=== PATIENT | female | born 1950 | race Caucasian/White ===

== ENCOUNTER 2022-04-04 06:35 | Day surgery (SDC) | payer MEDICARE, OTHER, SELFPAY ==
[2022-04-04] VITALS (9 sets, daily range): BP systolic 80–120; BP diastolic 41–56; PULSE 59–67; RESP 16–18; TEMP 36.4–36.9; O2SAT 93–98; BMI 22.5
[2022-04-04] MEDS: Lactated Ringers 1,000 ML 15 ML IV (07:26)
[2022-04-04] MEDS: Cefazolin 2 GM in 0.9% Normal Saline 100 ML IV (08:30)
--- NOTE | 2022-04-04 08:31 | DCINST_ITS ---
Discharge Instructions Diet Discharge Diet: No restrictions Activity Discharge Activity: Return to Normal Activity May resume sexual activity in: No Restrictions Dressing / Incision Call your doctor if you observe: Fever of 101 or Higher, Inability to urinate and Inability to have a bowel movement Follow Up Care Please Follow Up With: Leatha Darby MD When: next week, call for appt Test Results: Test results from this visit will be discussed in further detail at your follow- up appointment, if applicable. Discharge Plan Admission Attending Provider: Leatha Darby Primary Care Provider: Ric Lanza Discharge Orders/Prescriptions Prescriptions: New phenazopyridine [Pyridium] 200 mg tablet 200 mg PO TID PRN PRN (Reason: Bladder Spasms) 7 Days Qty: 30 0RF nitrofurantoin monohyd/m-cryst [Macrobid] 100 mg capsule 100 mg PO BID Qty: 6 0RF Rx Instructions: must administer with a meal/food Continued gabapentin 400 mg Capsule 400 mg PO QHS triamterene-hydrochlorothiazid 37.5-25 mg Tablet 1 tab PO BID niacin 500 mg Capsule, Extended Release 500 mg PO DAILY pravastatin 20 mg Tablet 20 mg PO QHS zolpidem [Ambien] 5 mg Tablet 5 mg PO QHS methimazole 10 mg Tablet 5 mg PO QHS ascorbic acid (vitamin C) [Vitamin C] 500 mg Tablet Extended Release 500 mg PO DAILY Urelle 81-10.8-40.8 mg Tablet 1 tab PO BID cholecalciferol (vitamin D3) [Vitamin D3] 25 mcg (1,000 unit) Tablet 25 mcg PO DAILY omega 6-mna-szm-fish oil [Fish Oil] 1,000 mg (120 mg-180 mg) Capsule 1 cap PO DAILY Referrals / Follow Up: Ric Lanza MD [Primary Care Provider] - Disposition Disposition (needs filled in before D/C Order can be placed): Home, Self Care
--- NOTE | 2022-04-04 08:35 | PCM.OPRPT ---
Report of Operation Date of Procedure: 04/04/22 Pre-Operative Diagnosis: Stress urinary incontinence Post-Operative Diagnosis: Same Surgery/Procedure Performed:: Bulkamid injection, cystoscopy Surgeon: Leatha Darby Type of Anesthesia: MAC Description of Procedure: The patient is a 71-year-old female with mild stress urinary incontinence who presents for injection of Bulkamid. Informed consent has been obtained. Patient was taken to the operating room placed on the operating room table. Anesthesia monitored the head, neck, airway, IV access and vital signs throughout the case. Once anesthesia was appropriate ministered, the patient was prepped and draped in usual sterile fashion. The lens with Bulkamid sheath was then inserted into the bladder with the markers at the 7 to 8 o'clock position. The needle was then inserted and positioning was obtained. The needle was then inserted into the tissue, care being taken not to go beyond the marker and the bevel facing medially. At this time 0.3 cc of the ball commode was injected. There was good ballooning of the tissue with good formation of a pillow. At this time the sheath was rotated to the 4 to 5 o'clock position and injection was repeated with 0.5 cc of the gel. Rotation once again occurred and injection was repeated at the 1 to 2 o'clock position and then again at the 10 to 11 o'clock position. There is good coaptation of the pillows. The cystoscope was then removed and the case was terminated. The patient was awakened and taken to the recovery room in good condition. There were no complications during this procedure. Grafts/Implants Used: Bulkamid Complications None Admit VTE Documentation VTE Present on Admission: Yes VTE Mechan Device Prophylaxis: SCD's VTE Pharm Prophylaxis ordered?: No Reason prophylaxis not ordered:: Treatment Not Indicated
== END 2022-04-04 10:37 | disposition home or self-care (01) ==
LOC: SDC 06:43 → AC 06:45
PROVIDERS: PCP Family Medicine; Referring Provider Urology; Visit Provider Urology
PROC: 3E0K8GC Introduction of Other Therapeutic Substance into Genitourinary Tract, Via Natural or Artificial Opening Endoscopic (ICD-10-PCS; CPT 52287; principal; 2022-04-04 08:10)
DX: N39.3 Stress incontinence (female) (male) (principal); N30.10 Interstitial cystitis (chronic) without hematuria; R35.1 Nocturia; N39.41 Urge incontinence; N90.5 Atrophy of vulva; N95.2 Postmenopausal atrophic vaginitis; E78.00 Pure hypercholesterolemia, unspecified; E07.9 Disorder of thyroid, unspecified
CPT/HCPCS: 51715; 00910; J7120; J2405

== ENCOUNTER 2025-09-01 06:01 | Day surgery (SDC) | payer MEDICARE, SELFPAY ==
--- NOTE | 2025-08-24 14:20 | PAT.ANESEVAL ---
Pre-Assessment Diagnosis/Proposed Procedure Planned Operative Procedure(s): Cysto, Mid-urethral sling Anesthesia History Anesthesia History - service delivery consultant: Anesthesia History - service delivery consultant Hx Hospitalization No 08/24/25 11:21 Any Problems With Anesthesia No 08/24/25 11:21 Cholinesterase deficiency No 08/24/25 11:21 You/Your Family Experience No 08/24/25 11:21 fever (hyperthermia) with Relationship Recent Exposure to Contagious No 04/04/22 07:12 Disease Does patient have nerve No 08/24/25 11:21 stimulator Patient instructed to have device shut off --Does patient have Pacemaker or ICD? When Was Last Pacemaker Check QUESTION #4 FULL TEXT: You/Your Family Experience fever (hyperthermia) with Anesthesia Last Oral Intake Last Oral intake: Last Oral Intake NPO since Meds taken in AM with sips of water? Meds patient instructed to take am of surgery PONV PONV - service delivery consultant: PONV - service delivery consultant Female Yes 08/24/25 11:21 HX of Motion Sickness No 08/24/25 11:21 HX of N/V After Surgery No 08/24/25 11:21 Non-Smoker Yes 08/24/25 11:21 Duration of Surgery greater Yes 08/24/25 11:21 than 60 minutes Number of Risk Factors 3 08/24/25 11:21 PONV Score Moderate Risk 08/24/25 11:21 Height & Weight Height & Weight: Anesthesia: Height & Weight Height 5 ft 8 in 06/08/25 08:44 Respiratory Assessment Respiratory Assessment - service delivery consultant: Respiratory Tract Infection Hx - service delivery consultant Hx Respiratory Tract Infection No 08/24/25 11:21 STOP Sleep Apnea STOP Sleep Apnea - service delivery consultant: STOP Sleep Apnea - service delivery consultant Hx Hypertension No 08/24/25 11:21 Hx Sleep Apnea No 08/24/25 11:21 CPAP BIPAP Do you snore loudly (louder No 08/24/25 11:21 than talking or can be heard Do you often feel tired/ No 08/24/25 11:21 fatigued/ sleepy during daytime? Has anyone observed you stop No 08/24/25 11:21 breathing during sleep? STOP Results Negative 08/24/25 11:21 QUESTION #5 FULL TEXT : Do you snore loudly (louder than talking or can be heard through closed doors)? 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 Specify any problems Hx of Preganancy in last 3 No 08/24/25 11:21 Months Nurse Filling Out Transfusion VCHRISTIN 08/24/25 11:21 & Questions: Date: 08/24/25 08/24/25 11:21 Time: 11:22 08/24/25 11:21 Patient unable to answer at this time (ie. confused, unrespo /Reproduction History /Reproductive History - service delivery consultant: /Reproductive Hx- service delivery consultant Hx Now No 08/24/25 11:21 Gestational Age (in weeks): EDC: Hx Hx Para Hx Section SAB No 08/24/25 11:21 Does the father of the baby or his family experience fever w Father of the baby Malignant Hypertension history comment [facility] Medical History (Updated 08/24/25 @ 14:14 by Radha Nowak) History of echocardiogram Post-menopausal Arthritis History of pain when walking Vulvar atrophy Vaginal atrophy Mixed incontinence Nocturia Interstitial cystitis Cancer Alcohol use Thyroid disease Bladder disease High cholesterol History of Mohs micrographic surgery for skin cancer Non-smoker History of edema Home Medications Medication Instructions Recorded Last Taken Type ascorbic acid (vitamin C) 500 mg 500 mg PO DAILY 04/02/22 Unknown History tablet,extended release (Vitamin C ER) cholecalciferol (vitamin D3) 25 25 mcg PO DAILY 04/02/22 Unknown History mcg (1,000 unit) tablet (Vitamin D3) methimazole 10 mg tablet 5 mg PO QHS 04/02/22 Unknown History omega 7-fom-snr-fish oil 1,000 mg 1 cap PO DAILY 04/02/22 Unknown History (120 mg-180 mg) capsule (Fish Oil) pravastatin 20 mg tablet 20 mg PO QHS 04/02/22 Unknown History triamterene 37.5 1 tab PO .QAM 04/02/22 Unknown History mg-hydrochlorothiazide 25 mg tablet zolpidem 5 mg tablet (Ambien) 10 mg PO QHS 04/02/22 Unknown History estradiol 0.01% (0.1 mg/gram) 1 g vaginal 3XW 06/08/25 Unknown History vaginal cream ospemifene 60 mg tablet (Osphena) 60 mg PO QDAY #30 tabs 06/08/25 Unknown Rx potassium chloride 10 mEq 10 meq PO QDAY 06/08/25 Unknown History tablet,extended release(part/cryst) Saccharomyces boulardii 250 mg 250 mg PO BID 08/22/25 Unknown History capsule (Daily Probiotic (S. boulardii)) biotin 10 mg tablet 10 mg PO QDAY 08/22/25 Unknown History magnesium 200 mg tablet 200 mg PO QDAY 08/22/25 Unknown History methenamine 81 mg-m.blue 10.8 1 tab PO BID #180 tabs 08/22/25 Unknown Rx mg-sod phos 40.8 mg-p.salicy-hyos tablet (Urelle) cream base no.193 (bulk) 1 applic topical DAILY 08/24/25 Unknown History (Versatile topical cream) ferrous sulfate 325 mg (65 mg 325 mg PO DAILY 08/24/25 Unknown History iron) tablet (FeroSul) lidocaine 4 % topical patch 1 patch topical DAILY PRN pain 08/24/25 Unknown History (AsperFlex (lidocaine)) melatonin 10 mg capsule 10 mg PO QHS 08/24/25 Unknown History triamterene 37.5 0.5 tab PO 1700 08/24/25 Unknown History mg-hydrochlorothiazide 25 mg tablet vitamin E 268 mg (400 unit) capsule 268 mg PO DAILY 08/24/25 Unknown History Allergy/AdvReac Type Severity Reaction Status Date / Time Penicillins Allergy Swelling Verified 08/24/25 11:04 Sulfa (Sulfonamide Allergy Upset Verified 08/24/25 11:04 Antibiotics) Stomach Surgical History (Updated 08/24/25 @ 11:21 by Radha Nowak) History of ankle surgery Hx of surgical procedure Hx of appendectomy Hx of hysterectomy Hx of breast biopsy Social History Smoking Status: Never smoker Audit: Pertinent Findings Pertinent Findings Echo (EF%) pertinent findings: 08/2024: EF 64%, mild MR and TR, with left atrial cavity mildly dilated. Recommendation Anesthesia Recommendation Anesthesia recommendation: OPTIMIZED for anesthesia
--- NOTE | 2025-08-29 08:35 | EKG12_ITS ---
Test Reason : PREOP Blood Pressure : */* mmHG Vent. Rate : 65 BPM Atrial Rate : 65 BPM P-R Int : 134 ms QRS Dur : 74 ms QT Int : 368 ms P-R-T Axes : 78 39 52 degrees QTcB Int : 382 ms Normal sinus rhythm Normal ECG Confirmed by Obey Casanova ([id number]), supervising editor news reel ROSANNE WEATHERS ([id number]) on 08/29/2025 10:29:18 AM Referred By: Leatha Darby Confirmed By: Obey Casanova
[2025-08-29 09:07] LABS: Hematocrit 40.0 % (37-47); Hemoglobin 14.2 g/dL (12.0-15.0); Mean Corp Hgb Conc 35.5 g/dL (32-36); Mean Corpuscular Volume 95.9 fL (81-99); Mean Platelet Vol. 10.7 fl (6.2-12.0); Platelet Count 203 K/mm3 (150-450); RBC Distribution Width CV 11.8 % (11.6-14.6); RBC Distribution Width SD 41.1 fl (35.1-43.9); Red Blood Count 4.17 M/mm3 (4.2-5.4); White Blood Count 6.6 K/mm3 (4.4-11.0)
[2025-08-29 09:26] LABS: Anion Gap 13 (5-15); BUN 22 mg/dL (4-19); BUN/Creat Ratio 21.3 RATIO (10-20); Calcium,Total 9.9 mg/dL (7.6-11.0); Carbon Dioxide 25.2 mmol/L (21.0-32.0); Chloride 101 mmol/L (98-108); Glucose 89 mg/dL (70-99); Potassium 3.5 mmol/L (3.3-5.1)
--- NOTE | 2025-08-29 12:53 | PAT.ANESEVAL ---
Pre-Assessment Diagnosis/Proposed Procedure Planned Operative Procedure(s): Cysto, Mid-urethral sling Anesthesia History Anesthesia History - public health representative: Anesthesia History - public health representative Hx Hospitalization No 08/24/25 11:21 Any Problems With Anesthesia No 08/24/25 11:21 Cholinesterase deficiency No 08/24/25 11:21 You/Your Family Experience No 08/24/25 11:21 fever (hyperthermia) with Relationship Recent Exposure to Contagious No 04/04/22 07:12 Disease Does patient have nerve No 08/24/25 11:21 stimulator Patient instructed to have device shut off --Does patient have Pacemaker or ICD? When Was Last Pacemaker Check QUESTION #4 FULL TEXT: You/Your Family Experience fever (hyperthermia) with Anesthesia Last Oral Intake Last Oral intake: Last Oral Intake NPO since Meds taken in AM with sips of water? Meds patient instructed to take am of surgery PONV PONV - public health representative: PONV - public health representative Female Yes 08/24/25 11:21 HX of Motion Sickness No 08/24/25 11:21 HX of N/V After Surgery No 08/24/25 11:21 Non-Smoker Yes 08/24/25 11:21 Duration of Surgery greater Yes 08/24/25 11:21 than 60 minutes Number of Risk Factors 3 08/24/25 11:21 PONV Score Moderate Risk 08/24/25 11:21 Height & Weight Height & Weight: Anesthesia: Height & Weight Height 5 ft 8 in 06/08/25 08:44 Respiratory Assessment Respiratory Assessment - public health representative: Respiratory Tract Infection Hx - public health representative Hx Respiratory Tract Infection No 08/24/25 11:21 STOP Sleep Apnea STOP Sleep Apnea - public health representative: STOP Sleep Apnea - public health representative Hx Hypertension No 08/24/25 11:21 Hx Sleep Apnea No 08/24/25 11:21 CPAP BIPAP Do you snore loudly (louder No 08/24/25 11:21 than talking or can be heard Do you often feel tired/ No 08/24/25 11:21 fatigued/ sleepy during daytime? Has anyone observed you stop No 08/24/25 11:21 breathing during sleep? STOP Results Negative 08/24/25 11:21 QUESTION #5 FULL TEXT : Do you snore loudly (louder than talking or can be heard through closed doors)? 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 Specify any problems Hx of Preganancy in last 3 No 08/24/25 11:21 Months Nurse Filling Out Transfusion VCHRISTIN 08/24/25 11:21 & Questions: Date: 08/24/25 08/24/25 11:21 Time: 11:22 08/24/25 11:21 Patient unable to answer at this time (ie. confused, unrespo /Reproduction History /Reproductive History - public health representative: /Reproductive Hx- public health representative Hx Now No 08/24/25 11:21 Gestational Age (in weeks): EDC: Hx Hx Para Hx Section SAB No 08/24/25 11:21 Does the father of the baby or his family experience fever w Father of the baby Malignant Hypertension history comment [facility] Medical History (Updated 08/24/25 @ 14:14 by Radha Nowak) History of echocardiogram Post-menopausal Arthritis History of pain when walking Vulvar atrophy Vaginal atrophy Mixed incontinence Nocturia Interstitial cystitis Cancer Alcohol use Thyroid disease Bladder disease High cholesterol History of Mohs micrographic surgery for skin cancer Non-smoker History of edema Home Medications Medication Instructions Recorded Last Taken Type ascorbic acid (vitamin C) 500 mg 500 mg PO DAILY 04/02/22 Unknown History tablet,extended release (Vitamin C ER) cholecalciferol (vitamin D3) 25 25 mcg PO DAILY 04/02/22 Unknown History mcg (1,000 unit) tablet (Vitamin D3) methimazole 10 mg tablet 5 mg PO QHS 04/02/22 Unknown History omega 7-hyw-hef-fish oil 1,000 mg 1 cap PO DAILY 04/02/22 Unknown History (120 mg-180 mg) capsule (Fish Oil) pravastatin 20 mg tablet 20 mg PO QHS 04/02/22 Unknown History triamterene 37.5 1 tab PO .QAM 04/02/22 Unknown History mg-hydrochlorothiazide 25 mg tablet zolpidem 5 mg tablet (Ambien) 10 mg PO QHS 04/02/22 Unknown History estradiol 0.01% (0.1 mg/gram) 1 g vaginal 3XW 06/08/25 Unknown History vaginal cream ospemifene 60 mg tablet (Osphena) 60 mg PO QDAY #30 tabs 06/08/25 Unknown Rx potassium chloride 10 mEq 10 meq PO QDAY 06/08/25 Unknown History tablet,extended release(part/cryst) Saccharomyces boulardii 250 mg 250 mg PO BID 08/22/25 Unknown History capsule (Daily Probiotic (S. boulardii)) biotin 10 mg tablet 10 mg PO QDAY 08/22/25 Unknown History magnesium 200 mg tablet 200 mg PO QDAY 08/22/25 Unknown History methenamine 81 mg-m.blue 10.8 1 tab PO BID #180 tabs 08/22/25 Unknown Rx mg-sod phos 40.8 mg-p.salicy-hyos tablet (Urelle) cream base no.193 (bulk) 1 applic topical DAILY 08/24/25 Unknown History (Versatile topical cream) ferrous sulfate 325 mg (65 mg 325 mg PO DAILY 08/24/25 Unknown History iron) tablet (FeroSul) lidocaine 4 % topical patch 1 patch topical DAILY PRN pain 08/24/25 Unknown History (AsperFlex (lidocaine)) melatonin 10 mg capsule 10 mg PO QHS 08/24/25 Unknown History triamterene 37.5 0.5 tab PO 1700 08/24/25 Unknown History mg-hydrochlorothiazide 25 mg tablet vitamin E 268 mg (400 unit) capsule 268 mg PO DAILY 08/24/25 Unknown History Allergy/AdvReac Type Severity Reaction Status Date / Time Penicillins Allergy Swelling Verified 08/24/25 11:04 Sulfa (Sulfonamide Allergy Upset Verified 08/24/25 11:04 Antibiotics) Stomach Surgical History (Updated 08/24/25 @ 11:21 by Radha Nowak) History of ankle surgery Hx of surgical procedure Hx of appendectomy Hx of hysterectomy Hx of breast biopsy Social History Smoking Status: Never smoker Audit: Pertinent Findings HISTORY of Pertinent Findings History of Pertinent Findings: Echo Pertinent Findings Echo (EF%) pertinent findings 08/2024: EF 64%, mild MR and 08/24/25 14:23 TR, with left atrial cavity mildly dilated. Pertinent Findings EKG Perinent findings: Normal sinus rhythm Normal ECG Confirmed by Obey Casanova ([id number]), online content editor ROSANNE WEATHERS ([id number]) on 08/29/2025 10:29:18 AM Echo (EF%) pertinent findings: 08/2024: EF 64%, mild MR and TR, with left atrial cavity mildly dilated. Recommendation Anesthesia Recommendation Anesthesia recommendation: OPTIMIZED for anesthesia
--- NOTE | 2025-08-29 15:24 | PAT.ANESEVAL ---
Pre-Assessment Diagnosis/Proposed Procedure Planned Operative Procedure(s): Cysto, Mid-urethral sling Anesthesia History Anesthesia History - forensic artist: Anesthesia History - forensic artist Hx Hospitalization No 08/24/25 11:21 Any Problems With Anesthesia No 08/24/25 11:21 Cholinesterase deficiency No 08/24/25 11:21 You/Your Family Experience No 08/24/25 11:21 fever (hyperthermia) with Relationship Recent Exposure to Contagious No 04/04/22 07:12 Disease Does patient have nerve No 08/24/25 11:21 stimulator Patient instructed to have device shut off --Does patient have Pacemaker or ICD? When Was Last Pacemaker Check QUESTION #4 FULL TEXT: You/Your Family Experience fever (hyperthermia) with Anesthesia Last Oral Intake Last Oral intake: Last Oral Intake NPO since Meds taken in AM with sips of water? Meds patient instructed to take am of surgery PONV PONV - forensic artist: PONV - forensic artist Female Yes 08/24/25 11:21 HX of Motion Sickness No 08/24/25 11:21 HX of N/V After Surgery No 08/24/25 11:21 Non-Smoker Yes 08/24/25 11:21 Duration of Surgery greater Yes 08/24/25 11:21 than 60 minutes Number of Risk Factors 3 08/24/25 11:21 PONV Score Moderate Risk 08/24/25 11:21 Height & Weight Height & Weight: Anesthesia: Height & Weight Height 5 ft 8 in 06/08/25 08:44 Respiratory Assessment Respiratory Assessment - forensic artist: Respiratory Tract Infection Hx - forensic artist Hx Respiratory Tract Infection No 08/24/25 11:21 STOP Sleep Apnea STOP Sleep Apnea - forensic artist: STOP Sleep Apnea - forensic artist Hx Hypertension No 08/24/25 11:21 Hx Sleep Apnea No 08/24/25 11:21 CPAP BIPAP Do you snore loudly (louder No 08/24/25 11:21 than talking or can be heard Do you often feel tired/ No 08/24/25 11:21 fatigued/ sleepy during daytime? Has anyone observed you stop No 08/24/25 11:21 breathing during sleep? STOP Results Negative 08/24/25 11:21 QUESTION #5 FULL TEXT : Do you snore loudly (louder than talking or can be heard through closed doors)? 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 Specify any problems Hx of Preganancy in last 3 No 08/24/25 11:21 Months Nurse Filling Out Transfusion VCHRISTIN 08/24/25 11:21 & Questions: Date: 08/24/25 08/24/25 11:21 Time: 11:22 08/24/25 11:21 Patient unable to answer at this time (ie. confused, unrespo /Reproduction History /Reproductive History - forensic artist: /Reproductive Hx- forensic artist Hx Now No 08/24/25 11:21 Gestational Age (in weeks): EDC: Hx Hx Para Hx Section SAB No 08/24/25 11:21 Does the father of the baby or his family experience fever w Father of the baby Malignant Hypertension history comment [facility] Medical History (Updated 08/24/25 @ 14:14 by Radha Nowak) History of echocardiogram Post-menopausal Arthritis History of pain when walking Vulvar atrophy Vaginal atrophy Mixed incontinence Nocturia Interstitial cystitis Cancer Alcohol use Thyroid disease Bladder disease High cholesterol History of Mohs micrographic surgery for skin cancer Non-smoker History of edema Home Medications Medication Instructions Recorded Last Taken Type ascorbic acid (vitamin C) 500 mg 500 mg PO DAILY 04/02/22 Unknown History tablet,extended release (Vitamin C ER) cholecalciferol (vitamin D3) 25 25 mcg PO DAILY 04/02/22 Unknown History mcg (1,000 unit) tablet (Vitamin D3) methimazole 10 mg tablet 5 mg PO QHS 04/02/22 Unknown History omega 1-tmq-zhw-fish oil 1,000 mg 1 cap PO DAILY 04/02/22 Unknown History (120 mg-180 mg) capsule (Fish Oil) pravastatin 20 mg tablet 20 mg PO QHS 04/02/22 Unknown History triamterene 37.5 1 tab PO .QAM 04/02/22 Unknown History mg-hydrochlorothiazide 25 mg tablet zolpidem 5 mg tablet (Ambien) 10 mg PO QHS 04/02/22 Unknown History estradiol 0.01% (0.1 mg/gram) 1 g vaginal 3XW 06/08/25 Unknown History vaginal cream ospemifene 60 mg tablet (Osphena) 60 mg PO QDAY #30 tabs 06/08/25 Unknown Rx potassium chloride 10 mEq 10 meq PO QDAY 06/08/25 Unknown History tablet,extended release(part/cryst) Saccharomyces boulardii 250 mg 250 mg PO BID 08/22/25 Unknown History capsule (Daily Probiotic (S. boulardii)) biotin 10 mg tablet 10 mg PO QDAY 08/22/25 Unknown History magnesium 200 mg tablet 200 mg PO QDAY 08/22/25 Unknown History methenamine 81 mg-m.blue 10.8 1 tab PO BID #180 tabs 08/22/25 Unknown Rx mg-sod phos 40.8 mg-p.salicy-hyos tablet (Urelle) cream base no.193 (bulk) 1 applic topical DAILY 08/24/25 Unknown History (Versatile topical cream) ferrous sulfate 325 mg (65 mg 325 mg PO DAILY 08/24/25 Unknown History iron) tablet (FeroSul) lidocaine 4 % topical patch 1 patch topical DAILY PRN pain 08/24/25 Unknown History (AsperFlex (lidocaine)) melatonin 10 mg capsule 10 mg PO QHS 08/24/25 Unknown History triamterene 37.5 0.5 tab PO 1700 08/24/25 Unknown History mg-hydrochlorothiazide 25 mg tablet vitamin E 268 mg (400 unit) capsule 268 mg PO DAILY 08/24/25 Unknown History Allergy/AdvReac Type Severity Reaction Status Date / Time Penicillins Allergy Swelling Verified 08/24/25 11:04 Sulfa (Sulfonamide Allergy Upset Verified 08/24/25 11:04 Antibiotics) Stomach Surgical History (Updated 08/24/25 @ 11:21 by Radha Nowak) History of ankle surgery Hx of surgical procedure Hx of appendectomy Hx of hysterectomy Hx of breast biopsy Social History Smoking Status: Never smoker Audit: Pertinent Findings HISTORY of Pertinent Findings History of Pertinent Findings: EKG Pertinent Findings EKG Perinent findings Normal sinus rhythm 08/29/25 12:54 Normal ECG Confirmed by Obey Casanova ([id number]), editor at large ROSANNE WEATHERS ([id number]) on 08/29/2025 10:29:18 AM Echo Pertinent Findings Echo (EF%) pertinent findings 08/2024: EF 64%, mild MR and 08/29/25 12:54 TR, with left atrial cavity mildly dilated. Echo (EF%) pertinent findings 08/2024: EF 64%, mild MR and 08/24/25 14:23 TR, with left atrial cavity mildly dilated. Recommendation Anesthesia Recommendation Anesthesia recommendation: OPTIMIZED for anesthesia (Looks like they sent the same echo - either way she is optimized for anesthesia )
[2025-09-01] VITALS (8 sets, daily range): BP systolic 134–140; BP diastolic 49–59; PULSE 64–72; RESP 16–18; TEMP 36.5–37.1; O2SAT 99–100; BMI 21.7
--- OUTSIDE RECORDS SUMMARY | 2025-09-01 06:05 | XMS RPT_ITS | CCD ---
Author Organization [facility] Care Team Providers Care Otolaryngology Rep Name Role Phone Rex GAONA, Ruiz Dhillon Unavailable Inna Pratt MD Unavailable Ric Fuentes MD. Primary Care Provider [phone] Mindy Gonzalez DO Unavailable Ric Fuentes MD Primary Care Provider Inna Pratt MD Unavailable [phone] Ric Fuentes MD. Primary Care Provider Mindy Gonzalez DO Unavailable [phone] Ric Fuentes MD Primary Care Provider DR RIC FUENTES MD Primary Care Physician LIBRA MCCARTHY DPM Attending Unavailable DR RIC FUENTES MD Primary Care LIBRA Gaytan DPM Attending Unavailable DR RIC FUENTES MD Primary Care Siriai alda Unavailable Primary Care Provider UnavailDr. Ric Easley MD Primary Care Provider Dr. Leatha Darby MD Attending Provider Dr. Ric Fuentes MD Referring Provider RIC FUENTES Referring Unavailable RIC FUENTES Primary Care Unavailable RIC FUENTES Referring Unavailable RIC FUENTES Primary Care Unavailable LUDWIN DEJESUS Referring Unavailable RIC FUENTES Primary Care Unavailable Ric Fuentes Primary Care Unavailable Ric Fuentes Referring Unavailable Leatha Darby Attending Unavailable Ric Fuentes Referring Unavailable Leatha Darby Attending Unavailable Ric Fuentes Primary Care Unavailable Ric Fuentes Primary Care Unavailable Leatha Darby Attending Unavailable Leatha Darby Referring Unavailable Roe Patel Consulting Unavailable Allergies Allergy Classification Reported Allergen(s) Allergy Type Date of Onset Reaction(s) Facility (1 source) Ciprofloxacin Drug Allergy 06-27-20 14 itching [facility] Work Phone: (1 source) Gentamicin Drug Allergy 06-27-20 14 itching [facility] Work Phone: (1 source) levoFLOXacin Drug Allergy 07-08-20 17 [facility] Work Phone: (1 source) Nitrofurantoin Drug Allergy 06-27-20 14 itching [facility] Work Phone: (1 source) Penicillin G Drug Allergy 05-18-20 12 [facility] Work Phone: (1 source) Tetracycline Drug Allergy 06-27-20 14 itching [facility] Work Phone: (1 source) WOOL; Translations: [WOOL] allergy to substance 08-16-20 19 [facility] Work Phone: (1 source) SULFACETAMIDE SODIUM-SULFUR drug allergy 05-18-20 12 [facility] Work Phone: (4 sources) Ciprofloxacin Drug Allergy 05-03-20 20 Nausea [facility] (5 sources) Penicillins; Translations: [PENICILLINS] Propensity to adverse reactions to drug 09-24-20 11 Swelling [facility] (11 sources) Sulfonamides (Antibiotic) Propensity to adverse reactions to drug 02-18-20 13 Itching [facility] Work Phone: (8 sources) Azithromycin; Translations: [AZITHROMYCIN] Drug Allergy 02-18-20 13 Itching [facility] (6 sources) Penicillins Propensity to adverse reactions to drug 09-24-20 11 Unknown [facility] (1 source) Doxycycline; Translations: [doxycycline] Drug Allergy [facility] (1 source) Penicillin; Translations: [penicillin] Drug Allergy itching, swelling [facility] (1 source) Sulfonamide; Translations: [sulfa drugs] Drug allergy itching, swelling [facility] (1 source) Penicillins Propensity to adverse reactions to drug 09-24-20 11 Unknown [facility] (1 source) Penicillins Allergy to substance 06-08-20 25 Swelling [facility] (2 sources) Sulfonamides (Antibiotic); Translations: [SULFA (SULFONAMIDE ANTIBIOTICS)] Allergy to substance 02-18-20 13 Upset Stomach [facility] (1 source) "CYCLINES Propensity to adverse reactions 06-08-20 25 Upset Stomach [facility] (1 source) Penicillins Drug allergy (disorder) 08-24-20 25 [facility] Repository (1 source) Sulfonamides (Antibiotic) Drug allergy (disorder) 08-24-20 25 [facility] Rep[facility] (1 source) CYCLINES; Translations: [CYCLINES] Propensity to adverse reactions (disorder) 08-22-20 25 [facility] Repository Medications Current Medications Medication Drug Class(es) Dates Sig (Normalized) Sig (Original) acetaminophen 325 mg / HYDROcodone bitartrate 5 mg oral tablet (7 sources) Opioid Agonist Start: 03-27-2014 take 1 tablet by mouth every six hours as needed HYDROcodone-aceta minophen 5-325 mg per tablet Take 1 tablet by mouth every 6 hours as needed. 20 tablet 0 03/27/2014 Active Comment on above: Take 1 tablet by leda every 6 hours as needed. ascorbic acid 500 mg extended release oral tablet (1 source) Vitamin C Start: 04-02-2022 take 1 tablet by mouth once daily Ascorbic Acid (Vitamin C) (Vitamin C) 500 mg Tablet Extended Release Active 500 mg PO DAILY April 02, 2022 12:00am biotin 5 mg oral capsule (2 sources) Start: 05-05-2024 biotin 5 mg oral capsule Dose : 5 mg = 1 cap(s), Oral, qDay, # 30 cap(s), 0 Refill(s) Start Date: 05/05/24 Status: Ordered Start: 08-16-2019 BIOTIN CAPS 1c apsule daily BIOTIN CAPS [id number] Kylie Corsaro [employer] calcium carbonate 1500 mg oral tablet (1 source) Start: 05-05-2024 calcium (as carbonate) 600 mg oral tablet Dose : 600 mg = 1 tab(s), Oral, qDay, 0 Refill(s) Start Date: 05/05/24 Status: Ordered cholecalciferol 0.025 mg oral tablet (1 source) Vitamin D Start: 04-02-2022 take 1 tablet by mouth once daily Cholecalciferol (Vitamin D3) (Vitamin D3) 25 mcg (1,000 unit) Tablet Active 25 ug PO DAILY April 02, 2022 12:00am clindamycin 10 mg/ml topical lotion (1 source) Lincosamide Antibacterial Start: 05-05-2024 clindamycin 1% topical lotion Apply 1 magaly, Topical, BID, # 60 mL, 0 Refill(s) Start Date: 05/05/24 Status: Ordered Estradiol (6 sources) Estrogen Start: 06-08-2025 Estradiol 0.01 % (0.1 mg/gram) cream Active 1 g VAGINAL 3 TIMES A WEEK June 08, 2025 12:00am Start: 05-05-2024 estradiol 0.1 mg/g vaginal cream Dose = 1 appl, Vaginal, Tues/Thurs/Sat, 0 Refill(s) Start Date: 05/05/24 Status: Ordered Start: 09-27-2021 estradiol (EST RACE) 0.1 MG/GM vaginal cream ezetimibe 10 mg oral tablet (7 sources) Dietary Cholesterol Absorption Inhibitor take 1 tablet by mouth once daily ezetimibe (ZETIA) 10 mg tablet Take 10 mg by mouth once daily. Active Comment on above: Take 10 mg by mouth once daily. gabapentin 400 mg oral capsule (13 sources) Anti-epileptic Agent Start: 10-02-2021 End: 06-08-2025 gabapentin 400 mg oral capsule Dose : 400 mg = 1 cap(s), Oral, qDay, 0 Refill(s) Start Date: 05/05/24 Status: Ordered Gabapentin 300 m g Tab Take by mouth once daily. Active Comment on above: Take by mouth once d aily. hydroCHLOROthiazide 25 mg / quinapril 20 mg oral tablet (7 sources) Thiazide Diuretic, Angiotensin Converting Enzyme Inhibitor take 1 tablet by mouth once daily Quinapril-Leslie chlorothiazide (ACCURETIC) 20-25 mg per tablet Take 1 tablet by mouth once daily. Active Comment on above: Take 1 tablet by [facility] once daily. hydroCHLOROthiazide 25 mg / triamterene 37.5 mg oral capsule (6 sources) Potassium-sparing Diuretic, Thiazide Diuretic Start: 05-05-20 take 1 capsule by mouth twice daily hydrochlorothia zide-triamteren e 25 mg-37.5 mg oral capsule Dose = 1 cap(s), Oral, BID, 0 Refill(s) Start Date: 05/05/24 Status: Ordered Start: 04-02-2022 Triamterene-Hy drochlorothiazid 37.5-25 mg Tablet Active 1 {tbl} PO TWICE A DAY April 02, 2022 12:00am Start: 04-17-2020 triamterene-hy drochlorothiazide (DYAZIDE) 37.5-25 MG per capsule hyoscyamine sulfate 0.12 mg / methenamine 81 mg / methylene blue 10.8 mg / phenyl salicylate 32.4 mg / sodium phosphate, monobasic 40.8 mg oral tablet (7 sources) Oxidation-Reduction Agent Start: 04-02-2022 take 1 tablet by mouth twice daily urelle oral tablet Dose = 1 tab(s), Oral, BID, # 90 EA, 0 Refill(s) Start Date: 05/05/24 Status: Ordered Start: 03-08-2020 Meth-Hyo-M Bl- Na Phos-Ph Yung (URELLE) 81 MG TABS Start: 08-16-2019 URELLE 81 MG T ABS 1 tablet daily METH-HYO-M BL-NA PHOS-PH YUNG [id number] Kylie Muniz LPN levothyroxine sodium 0.1 mg oral tablet (7 sources) l-Thyroxine levothyroxine (SYNTHROID) 100 mcg tablet Take by mouth daily before breakfast. Active Comment on above: Take by mouth daily before breakfast. magnesium oxide 250 mg oral tablet (1 source) Start: 05-05-20 Magnesium 250 mg tablet Dose : 500 mg = 2 tab(s), Oral, qDay, 0 Refill(s) Start Date: 05/05/24 Status: Ordered metaxalone 800 mg oral tablet (7 sources) Start: 12-12-19 take 1 tablet by mouth every eight hours as needed metaxalone 800 mg tablet Take 1 tablet by mouth three times daily as needed for Pain (or muscle spasms). 14 tablet 0 12/12/2013 Active Comment on above: Take 1 tablet by leda three times daily as needed for Pain (or muscle spasms). methIMAzole 10 mg oral tablet (7 sources) Thyroid Hormone Synthesis Inhibitor Start: 05-05-20 methIMAzole 10 mg oral tablet Dose : 10 mg = 1 tab(s), Oral, qDay, 0 Refill(s) Start Date: 05/05/24 Status: Ordered Start: 04-02-2022 take 5 mg by mouth at bedtime Methimazole 10 mg Tablet Active 5 mg PO AT BEDTIME April 02, 2022 12:00am Start: 08-16-2019 METHIMAZOLE 10 MG TABS 1 tablet twice daily METHIMAZOLE [id number] Kylie Muniz LPN METHIMAZOLE ORAL Take by mouth. 0 Active omega-3 acid ethyl esters (alf) 1000 mg oral capsule (1 source) Start: 04-02-2022 [place] 7-Uoy-Fhe-Fish Oil (Fish Oil) 1,000 mg (120 mg-180 mg) Capsule Active 1 NMA PO DAILY April 02, 2022 12:00am ondansetron 4 mg oral tablet (7 sources) Serotonin-3 Receptor Antagonist Start: 03-27-2014 take 1 tablet by mouth every four hours as needed ondansetron 4 mg tablet Take 1 tablet by mouth every 4 hours as needed for Nausea/Vomiting. 8 tablet 0 03/27/2014 Active Comment on above: Take 1 tablet by [facility] every 4 hours as needed for Nausea/Vomiting. ospemifene 60 mg oral tablet (1 source) Start: 06-08-2025 take 1 tablet by mouth once daily at mealtime Ospemifene (Osphena) 60 mg tablet Active 60 mg PO daily 16 01June 08, 2025 12:00am must administer with food, preferably a high-fat meal Osteo Bi-Flex Advanced oral tablet (1 source) Start: 05-05-2024 take 1 tablet by mouth once daily at mealtime Osteo Bi-Flex Advanced oral tablet Dose = 1 tab(s), Oral, Daily, 0 Refill(s), Take with food Start Date: 05/05/24 Status: Ordered microencapsulated potassium chloride 10 meq extended release oral tablet (2 sources) Start: 06-08-2025 take 1 tablet by mouth once daily Potassium Chloride 10 mEq tablet,ER particles/crystals Active 10 meq PO daily June 08, 2025 12:00am Start: 05-05-2024 Pokonza 10 mEq oral powder for reconstitution 1 packet(s), Oral, qDay, dilute the contents in at least 4 oz. of cold water, # 60 packet(s), 0 Refill(s) Start Date: 05/05/24 Status: Ordered pravastatin sodium 20 mg oral tablet (14 sources) HMG-CoA Reductase Inhibitor Start: 03-21-2020 pravastatin 20 mg or al tablet Dose : 20 mg = 1 tab(s), Oral, qHS, 0 Refill(s) Start Date: 05/05/24 Status: Ordered Start: 08-16-2019 PRAVASTATIN SO DIUM 20 MG TABS 1 3 times daily PRAVASTATIN SODIUM [id number] Kylie Muniz LPN take 1 tablet by leda th once daily pravastatin 10 mg tablet Take 10 mg by mouth once daily. Active Comment on above: Take 10 mg by mouth once daily. thioctic acid 600 mg oral capsule (7 sources) Alpha Lipoic Aci d 600 mg cap Take by mouth once daily. Active Comment on above: Take by mouth once d aily. tretinoin 1 mg/ml topical cream (4 sources) Retinoid Start: 04-28-2020 tretinoin (RETIN-A) 0.1 % cream valACYclovir 1000 mg oral tablet (11 sources) Herpesvirus Nucleoside Analog DNA Polymerase Inhibitor, Herpes Simplex Virus Nucleoside Analog DNA Polymerase Inhibitor, Herpes Zoster Virus Nucleoside Analog DNA Polymerase Inhibitor Start: 02-07-2020 valACYclovir (VALTREX) 1 GM tablet take 2 tablets by mo uth three times daily valACYclovir (VALTREX) 500 mg tablet Jeison e 1,000 mg by mouth three times daily. Active Comment on above: Take 1,000 mg by leda th three times daily. Vitamin C 500 mg oral tablet (1 source) Start: 05-05-2024 Vitamin C 500 mg oral tablet Dose : 500 mg = 1 tab(s), Oral, qDay, # 30 tab(s), 0 Refill(s) Start Date: 05/05/24 Status: Ordered Vitamin D3 (1 source) Start: 05-05-2024 Vitamin D3 Dose : 25 mcg = 1 tab(s), Oral, Daily, 0 Refill(s) Start Date: 05/05/24 Status: Ordered zinc gluconate 15 mg oral tablet (1 source) Start: 05-05-2024 zinc (as gluconate) 15 mg oral tablet Dose : 15 mg = 1 tab(s), Oral, Daily, 0 Refill(s) Start Date: 05/05/24 Status: Ordered zolpidem tartrate 10 mg oral tablet (7 sources) gamma-Aminobutyric Acid-ergic Agonist Start: 05-05-2024 zolpidem 10 mg oral tablet Dose : 10 mg = 1 tab(s), Oral, qHS, 0 Refill(s) Start Date: 05/05/24 Status: Ordered Start: 04-02-2022 take 1 tablet by leda th at bedtime Zolpidem (Ambien) 5 mg Tablet Active 5 mg PO AT BEDTIME April 02, 2022 12:00am Start: 04-25-2020 take 1 tablet by leda th once daily zolpidem (AMBIEN) 10 MG tablet TAKE 1 TABLET BY MOUTH EVERY DAY AT NIGHT 0 04/25/2020 Active Start: 02-09-2019 AMBIEN TABS 1 tablet bedtime ZOLPIDEM TARTRATE TABS [id number] Kylie Corsaro [employer] Completed/Discontinued Medications Medication Drug Class(es) Dates Sig (Normalized) Sig (Original) GLUCOSAMINE-CHONDROI TIN TABS (1 source) Start: 08-16-2019 OSTEO BI-FLEX REGULAR STRENGTH TABS 1 tablet daily GLUCOSAMINE-CHONDROI TIN TABS [id number] Kylie Corsaro [employer] fexofenadine hydrochloride 180 mg oral tablet (1 source) Histamine-1 Receptor Antagonist Start: 08-16-2019 FEXOFENADINE HCL 180 MG TABS 1 tablet daily FEXOFENADINE HCL [id number] Kylie Corsaro [employer] Fish Oils (1 source) Start: 08-16-2019 FISH OIL CAPS 1capsule daily OMEGA-3 FATTY ACIDS CAPS [id number] Kylie Corsaro [employer] niacin 500 mg extended release oral capsule (1 source) Nicotinic Acid Start: 04-02-2022 End: 06-08-2025 take 1 capsule by mouth once daily Niacin 500 mg Capsule, Extended Release Discontinued 500 mg PO DAILY April 02, 2022 12:00am June 08, 2025 8:42am nitrofurantoin, macrocrystals 25 mg / nitrofurantoin, monohydrate 75 mg oral capsule (8 sources) Nitrofuran Antibacterial Start: 03-27-2014 End: 06-08-2025 take 1 capsule by mouth twice daily at mealtime Nitrofurantoin Monohyd/M-Cryst (Macrobid) 100 mg capsule Discontinued 100 mg PO TWICE A DAY 6 0 April 04, 2022 12:00am June 08, 2025 8:42am must administer with a meal/food Comment on above: Take 1 capsule by mo uth twice daily. phenazopyridine hydrochloride 200 mg oral tablet (1 source) Start: 04-04-2022 End: 06-08-2025 take 1 tablet by mouth three times daily as needed for muscle spasms Phenazopyridine (Pyridium) 200 mg tablet Discontinued 200 mg PO 3 TIMES DAILY NEEDED as needed for Bladder Spasms 30 7 0 April 04, 2022 12:00am June 08, 2025 8:42am spironolactone 50 mg oral tablet (1 source) Aldosterone Antagonist Start: 08-16-2019 SPIRONOLACTONE 50 MG TABS 1 tablet twice daily SPIRONOLACTONE [id number] Kylie Muniz LPN VITAMIN E TABS (1 source) Start: 08-16-2019 VITAMIN E TABS 1 tablet daily VITAMIN E TABS [id number] Kylie Muniz LPN Problems Active Problems Problem Classification Problem Date Documented Date Episodic/Chronic Esophageal disorders (11 sources) Gastroesophageal reflux disease; Translations: [Gastro-esophageal reflux disease without esophagitis] Onset: 02-17-2013 05-03-2020 Chronic Genitourinary symptoms and ill-defined conditions (4 sources) Incontinence; Translations: [Mixed incontinence] Onset: 06-29-2025 06-08-2025 Chronic Genitourinary symptoms and ill-defined conditions (3 sources) Nocturia; Translations: [Nocturia] Onset: 06-29-2025 06-08-2025 Episodic Menopausal disorders (4 sources) Atrophy of vagina; Translations: [Postmenopausal atrophic vaginitis] Onset: 07-25-2025 06-08-2025 Chronic Other female genital disorders (2 sources) Atrophic vulva; Translations: [Atrophy of vulva] 06-08-2025 Episodic Other female genital disorders (1 source) Atrophy of vulva; Translations: [Atrophy of vulva] Onset: 08-22-2025 Episodic Other screening for suspected conditions (not mental disorders or infectious disease) (2 sources) Encounter for screening for osteoporosis; Translations: [Encounter for screening mammogram for malignant neoplasm of breast] Onset: 05-27-2025 Episodic Thyroid disorders (1 source) Other thyrotoxicosis without thyrotoxic crisis or storm; Translations: [Other thyrotoxicosis without thyrotoxic crisis or storm] Onset: 07-25-2025 Chronic Urinary tract infections (3 sources) Interstitial cystitis (chronic) without hematuria; Translations: [Interstitial cystitis] Onset: 06-29-2025 06-08-2025 Chronic Urinary tract infections (2 sources) Urinary tract infectious disease; Translations: [Urinary tract infection, site not specified] Onset: 06-29-2025 06-08-2025 Episodic Past or Other Problems Problem Classification Problem Date Documented Date Episodic/Chronic Diseases of mouth; excluding dental (20 sources) Burning mouth syndrome ; Translations: [Glossodynia] Onset: 02-17-2013 05-03-2020 Episodic Disorders of teeth and jaw (11 sources) Temporomandibular joint disorder; Translations: [Unspecified temporomandibular joint disorder, unspecified side] Onset: 06-30-2013 05-03-2020 Episodic Nonspecific chest pain (1 source) Chest pain, unspecified; Translations: [Chest pain, unspecified] Onset: 08-25-2024 Episodic Other connective tissue disease (1 source) Tendinitis of wrist; Translations: [Other enthesopathies, not elsewhere classified] Onset: 08-16-2019 08-16-2019 Episodic Other connective tissue disease (1 source) Other shoulder lesions, right shoulder; Translations: [Other shoulder lesions, right shoulder] Onset: 08-04-2017 08-04-2017 Episodic Other connective tissue disease (1 source) Complete rotator cuff tear or rupture of right shoulder, not specified as traumatic; Translations: [Complete rotator cuff tear or rupture of right shoulder, not specified as traumatic] Onset: 07-08-2017 07-08-2017 Episodic Other connective tissue disease (1 source) Impingement syndrome of shoulder region; Translations: [Impingement syndrome of right shoulder] Onset: 07-08-2017 07-08-2017 Episodic Other skin disorders (1 source) Intrinsic aging of skin; Translations: [Other skin changes] Onset: 02-09-2019 02-09-2019 Episodic Other upper respiratory infections (11 sources) Laryngitis; Translations: [Acute laryngitis] Onset: 02-17-2013 05-03-2020 Episodic Unclassified (1 source) Problem Results Test Name Value Interpretation Reference Range Facility 12 Lead EKGon 08-29-2025 12 Lead EKG [facility] [address] [place] [address] 12 Lead EKG 08/29/25 0839 MR#: [id number] Acct: [id number] Name: DAHLIA PARSONS Rep #: [id number] : 1950 75 From: Obey Casanova MD Attending Dr: Dr. Leatha Darby MD Status: PRE SDC Ordering Dr: Leatha Darby MD Date: 08/29/25 Location: [facility] [place] Sex: F C Admitted: Test Reason : PREOP Blood Pressure : */* mmHG Vent. Rate : 65 BPM Atrial Rate : 65 BPM P-R Int : 134 ms QRS Dur : 74 ms QT Int : 368 ms P-R-T Axes : 78 39 52 degrees QTcB Int : 382 ms Normal sinus rhythm Normal ECG Confirmed by Obey Casanova ([id number]), proposal editor ROSANNE WEATHERS ([id number]) on 08/29/2025 10:29:18 AM Referred By: Leatha Darby Confirmed By: Obey Casanova 08/29/25 1029 Date Obey Casanova MD CC: Dr. Leatha Darby MD; Dr. Ric Fuentes MD Signed Normal [facility] Basic Metabolic Profile (BMP )on 08-29-2025 BUN/CRE 21.3 RATIO High 08-08 [facility] Comment on above: Performed By: #### L 500.2500, L100.0500 #### [facility] [address] [place], [address] Calcium [Mass/Vol] 9.9 mg/dL Normal 7.6-11.0 [facility] Comment on above: Performed By: #### L 500.2500, L100.0500 #### [facility] [address] [place], [address] Chloride [Moles/Vol] 101 mmol/L Normal 98-108 [facility] Comment on above: Performed By: #### L 500.2500, L100.0500 #### [facility] [address] [place], [address] CO2 [Moles/Vol] 25.2 mmol/L Normal 21.0-32.0 [facility] Comment on above: Performed By: #### L 500.2500, L100.0500 #### [facility] [address] [place], [address] Creatinine [Mass/Vol] 1.01 mg/dL Normal 0.70-1.20 [facility] Comment on above: Performed By: #### L 500.2500, L100.0500 #### [facility] [address] [place], [address] GAP 13 Normal 5-15 [facility] Comment on above: Performed By: #### L 500.2500, L100.0500 #### [facility] [address] [place], [address] GFR/1.73 sq M.predicted among non-blacks MDRD (S/P/Bld) [Vol rate/Area] 57 mL/min/{1.73_m2} Low >60 [facility] Comment on above: Result Comment: mL/m in/1.73m2 CKD-EPI Creatinine Equation (2020) Performed By: #### L 500.2500, L100.0500 #### [facility] [address] [place], [address] Glucose [Mass/Vol] 89 mg/dL Normal 70-99 [facility] Comment on above: Performed By: #### L 500.2500, L100.0500 #### [facility] [address] [place], [address] Potassium [Moles/Vol] 3.5 mmol/L Normal 3.3-5.1 [facility] Comment on above: Performed By: #### L 500.2500, L100.0500 #### [facility] [address] [place], [address] Sodium [Moles/Vol] 140 mmol/L Normal 133-145 [facility] Comment on above: Performed By: #### L 500.2500, L100.0500 #### [facility] [address] [place], [address] Urea nitrogen [Mass/Vol] 22 mg/dL High 4-19 [facility] Comment on above: Performed By: #### L 500.2500, L100.0500 #### [facility] [address] [place], [address] CBC-Complete Blood Cnt No Di ffon 08-29-2025 Erythrocyte distribution width (RBC) [Ratio] 11.8 % Normal 11.6-14.6 [facility] Comment on above: Performed By: #### L 500.2500, L100.0500 #### [facility] [address] [place], [address] Hematocrit (Bld) [Volume fraction] 40.0 % Normal 37-47 [facility] Comment on above: Performed By: #### L 500.2500, L100.0500 #### [facility] [address] [place], [address] Hemoglobin (Bld) [Mass/Vol] 14.2 g/dL Normal 12.0-15.0 [facility] Comment on above: Performed By: #### L 500.2500, L100.0500 #### [facility] [address] [place], [address] MCH (RBC) [Entitic mass] 34.1 pg High 27.0-32.0 [facility] Comment on above: Performed By: #### L 500.2500, L100.0500 #### [facility] [address] [place], [address] MCHC (RBC) [Mass/Vol] 35.5 g/dL Normal 32-36 [facility] Comment on above: Performed By: #### L 500.2500, L100.0500 #### [facility] [address] [place], [address] MCV (RBC) [Entitic vol] 95.9 fL Normal 81-99 [facility] Comment on above: Performed By: #### L 500.2500, L100.0500 #### [facility] [address] [place], [address] Platelet mean volume (Bld) [Entitic vol] 10.7 fL Normal 6.2-12.0 [facility] Comment on above: Performed By: #### L 500.2500, L100.0500 #### [facility] [address] [place], [address] Platelets (Bld) [#/Vol] 203 10*3/uL Normal 150-450 [facility] Comment on above: Performed By: #### L 500.2500, L100.0500 #### [facility] [address] [place], [address] RBC (Bld) [#/Vol] 4.17 10*6/uL Low 4.2-5.4 [facility] Comment on above: Performed By: #### L 500.2500, L100.0500 #### [facility] [address] [place], [address] RDW SD 41.1 fl Normal 35.1-43.9 [facility] Comment on above: Performed By: #### L 500.2500, L100.0500 #### [facility] [address] [place], [address] WBC (Bld) [#/Vol] 6.6 10*3/uL Normal 4.4-11.0 [facility] Comment on above: Performed By: #### L 500.2500, L100.0500 #### [facility] [address] [place], [address] MR/PATJordana 08-29-2025 MR/PAT.[facility] Medical Records Department [address] [place] [address] PAT - Anesthesia 08/29/25 1524 MR#: [id number] Acct: [id number] Name: DAHLIA PARSONS Rep #: [id number] : 1950 75 From: Roe Patel MD PCP: Dr. Ric Fuentes MD Status:PRE [facility] Y Race: C Location: [facility] Pre-Assessment Diagnosis/Proposed Procedure Planned Operative Procedure(s): Cysto, Mid-urethral sling Anesthesia History Anesthesia History - rn procedures: Anesthesia History - rn procedures Hx Hospitalization No 08/24/25 11:21 Any Problems With Anesthesia No 08/24/25 11:21 Cholinesterase deficiency No 08/24/25 11:21 You/Your Family Experience No 08/24/25 11:21 fever (hyperthermia) with Relationship Recent Exposure to Contagious No 04/04/22 07:12 Disease Does patient have nerve No 08/24/25 11:21 stimulator Patient instructed to have device shut off --Does patient have Pacemaker or ICD? When Was Last Pacemaker Check QUESTION #4 FULL TEXT: You/Your Family Experience fever (hyperthermia) with Anesthesia Last Oral Intake Last Oral intake: Last Oral Intake NPO since Meds taken in AM with sips of water? Meds patient instructed to take am of surgery PONV PONV - rn procedures: PONV - rn procedures Female Yes 08/24/25 11:21 HX of Motion Sickness No 08/24/25 11:21 HX of N/V After Surgery No 08/24/25 11:21 Non-Smoker Yes 08/24/25 11:21 Duration of Surgery greater Yes 08/24/25 11:21 than 60 minutes Number of Risk Factors 3 08/24/25 11:21 PONV Score Moderate Risk 08/24/25 11:21 Height Weight Height Weight: Anesthesia: Height Weight Height 5 ft 8 in 06/08/25 08:44 Respiratory Assessment Respiratory Assessment - rn procedures: Respiratory Tract Infection Hx - rn procedures Hx Respiratory Tract Infection No 08/24/25 11:21 STOP Sleep Apnea STOP Sleep Apnea - rn procedures: STOP Sleep Apnea - rn procedures Hx Hypertension No 08/24/25 11:21 Hx Sleep Apnea No 08/24/25 11:21 CPAP BIPAP Do you snore loudly (louder No 08/24/25 11:21 than talking or can be heard Do you often feel tired/ No 08/24/25 11:21 fatigued/ sleepy during daytime? Has anyone observed you stop No 08/24/25 11:21 breathing during sleep? STOP Results Negative 08/24/25 11:21 QUESTION #5 FULL TEXT : Do you snore loudly (louder than talking or can be heard through closed doors)? Tobacco Use History Tobacco Use History - rn procedures: Tobacco Use History - rn procedures Tobacco Use Smoking Status Never smoker 08/24/25 11:21 Hx Tobacco Use No 08/24/25 11:21 Years Smoking Packs Smoked per Day Smoking Cessation Date was within the last 15 years Hx Smoking Cessation Date Hx Smoking Cessation Counseling Hematologic Medial History Hematologic Hx - rn procedures: Hematologic Medical Hx - preparator Hx of Blood Transfusion No 08/24/25 11:21 Hx of Transfusion in last 3 No 08/24/25 11:21 Months Date of Last Transfusion (if within last 3 months) Ever experience any problems No 08/24/25 11:21 with transfusion(s)? Specify any problems Hx of Preganancy in last 3 No 08/24/25 11:21 Months Nurse Filling Out Transfusion VCHRISTIN 08/24/25 11:21 Questions: Date: 08/24/25 08/24/25 11:21 Time: 08/24/25 11:21 Patient unable to answer at this time (ie. confused, unrespo /Reproductio n History /Reproductiv e History - rn procedures: /Reproductiv e Hx- rn procedures Hx Now No 08/24/25 11:21 Gestational Age (in weeks): EDC: Hx Hx Para Hx Section SAB No 08/24/25 11:21 Does the father of the baby or his family experience fever w Father of the baby Malignant Hypertension history comment [facility] Medical History (Updated 08/24/25 @ 14:14 by Radha Nowak) History of echocardiogram Post-menopausal Arthritis History of pain when walking Vulvar atrophy Vaginal atrophy Mixed incontinence Nocturia Interstitial cystitis Cancer Alcohol use Thyroid disease Bladder disease High cholesterol History of Mohs micrographic surgery for skin cancer Non-smoker History of edema Home Medications ???Medication ???Instructions ???Recorded ???Last Taken ???Type ascorbic acid (vitamin C) 500 mg 500 mg PO DAILY 04/02/22 Unknown H istory tablet,extended release (Vitamin C ER) cholecalciferol (vitamin D3) 25 25 mcg PO DAILY 04/02/22 Unknown H istory mcg (1,000 unit) tablet (Vitamin D3) methimazole 10 mg tablet 5 mg PO QHS 04/02/22 Unknown Histo ry omega 7-mez-tkj-fish oil 1,000 (more content not included)... Normal [facility] MR/PAT.[facility] Medical Records Department [address] [place] [address] PAT - Anesthesia 08/29/25 1253 MR#: [id number] Acct: [id number] Name: DALHIA PARSONS Rep #: [id number] : 1950 75 From: Roe Patel MD PCP: Dr. Ric Fuentes MD Status:PRE [facility] [place] Y Race: C Location: [facility] Pre-Assessment Diagnosis/Proposed Procedure Planned Operative Procedure(s): Cysto, Mid-urethral sling Anesthesia History Anesthesia History - rn procedures: Anesthesia History - rn procedures Hx Hospitalization No 08/24/25 11:21 Any Problems With Anesthesia No 08/24/25 11:21 Cholinesterase deficiency No 08/24/25 11:21 You/Your Family Experience No 08/24/25 11:21 fever (hyperthermia) with Relationship Recent Exposure to Contagious No 04/04/22 07:12 Disease Does patient have nerve No 08/24/25 11:21 stimulator Patient instructed to have device shut off --Does patient have Pacemaker or ICD? When Was Last Pacemaker Check QUESTION #4 FULL TEXT: You/Your Family Experience fever (hyperthermia) with Anesthesia Last Oral Intake Last Oral intake: Last Oral Intake NPO since Meds taken in AM with sips of water? Meds patient instructed to take am of surgery PONV PONV - rn procedures: PONV - rn procedures Female Yes 08/24/25 11:21 HX of Motion Sickness No 08/24/25 11:21 HX of N/V After Surgery No 08/24/25 11:21 Non-Smoker Yes 08/24/25 11:21 Duration of Surgery greater Yes 08/24/25 11:21 than 60 minutes Number of Risk Factors 3 08/24/25 11:21 PONV Score Moderate Risk 08/24/25 11:21 Height Weight Height Weight: Anesthesia: Height Weight Height 5 ft 8 in 06/08/25 08:44 Respiratory Assessment Respiratory Assessment - rn procedures: Respiratory Tract Infection Hx - rn procedures Hx Respiratory Tract Infection No 08/24/25 11:21 STOP Sleep Apnea STOP Sleep Apnea - rn procedures: STOP Sleep Apnea - rn procedures Hx Hypertension No 08/24/25 11:21 Hx Sleep Apnea No 08/24/25 11:21 CPAP BIPAP Do you snore loudly (louder No 08/24/25 11:21 than talking or can be heard Do you often feel tired/ No 08/24/25 11:21 fatigued/ sleepy during daytime? Has anyone observed you stop No 08/24/25 11:21 breathing during sleep? STOP Results Negative 08/24/25 11:21 QUESTION #5 FULL TEXT : Do you snore loudly (louder than talking or can be heard through closed doors)? Tobacco Use History Tobacco Use History - rn procedures: Tobacco Use History - rn procedures Tobacco Use Smoking Status Never smoker 08/24/25 11:21 Hx Tobacco Use No 08/24/25 11:21 Years Smoking Packs Smoked per Day Smoking Cessation Date was within the last 15 years Hx Smoking Cessation Date Hx Smoking Cessation Counseling Hematologic Medial History Hematologic Hx - rn procedures: Hematologic Medical Hx - preparator Hx of Blood Transfusion No 08/24/25 11:21 Hx of Transfusion in last 3 No 08/24/25 11:21 Months Date of Last Transfusion (if within last 3 months) Ever experience any problems No 08/24/25 11:21 with transfusion(s)? Specify any problems Hx of Preganancy in last 3 No 08/24/25 11:21 Months Nurse Filling Out Transfusion VCHRISTIN 08/24/25 11:21 Questions: Date: 08/24/25 08/24/25 11:21 Time: :08/24/25 11:21 Patient unable to answer at this time (ie. confused, unrespo /Reproductio n History /Reproductiv e History - rn procedures: /Reproductiv e Hx- rn procedures Hx Now No 08/24/25 11:21 Gestational Age (in weeks): EDC: Hx Hx Para Hx Section SAB No 08/24/25 11:21 Does the father of the baby or his family experience fever w Father of the baby Malignant Hypertension history comment [facility] Medical History (Updated 08/24/25 @ 14:14 by Radha Nowak) History of echocardiogram Post-menopausal Arthritis History of pain when walking Vulvar atrophy Vaginal atrophy Mixed incontinence Nocturia Interstitial cystitis Cancer Alcohol use Thyroid disease Bladder disease High cholesterol History of Mohs micrographic surgery for skin cancer Non-smoker History of edema Home Medications ???Medication ???Instructions ???Recorded ???Last Taken ???Type ascorbic acid (vitamin C) 500 mg 500 mg PO DAILY 04/02/22 Unknown H istory tablet,extended release (Vitamin C ER) cholecalciferol (vitamin D3) 25 25 mcg PO DAILY 04/02/22 Unknown H istory mcg (1,000 unit) tablet (Vitamin D3) methimazole 10 mg tablet 5 mg PO QHS 04/02/22 Unknown Histo ry omega 3-bja-kyb-fish oil 1,000 (more content not included)... Normal [facility] Thyroid Stim Hormone (TSH)on 08-29-2025 TSH 2.810 uIU/mL Normal 0.300-4.200 [facility] Comment on above: Performed By: #### L 747.9364 #### [facility] [address] [place], [address] MR/PATJordana 08-24-2025 MR/[facility] Medical Records Department [address] [place] [address] PAT - Anesthesia 08/24/25 1420 MR#: [id number] Acct: [id number] Name: DAHLIA PARSONS Rep #: [id number] : 1950 75 From: Roe Patel MD PCP: Dr. Ric Fuentes MD Status:PRE SDC Y Race: C Location: [facility] Pre-Assessment Diagnosis/Proposed Procedure Planned Operative Procedure(s): Cysto, Mid-urethral sling Anesthesia History Anesthesia History - rn procedures: Anesthesia History - rn procedures Hx Hospitalization No 08/24/25 11:21 Any Problems With Anesthesia No 08/24/25 11:21 Cholinesterase deficiency No 08/24/25 11:21 You/Your Family Experience No 08/24/25 11:21 fever (hyperthermia) with Relationship Recent Exposure to Contagious No 04/04/22 07:12 Disease Does patient have nerve No 08/24/25 11:21 stimulator Patient instructed to have device shut off --Does patient have Pacemaker or ICD? When Was Last Pacemaker Check QUESTION #4 FULL TEXT: You/Your Family Experience fever (hyperthermia) with Anesthesia Last Oral Intake Last Oral intake: Last Oral Intake NPO since Meds taken in AM with sips of water? Meds patient instructed to take am of surgery PONV PONV - rn procedures: PONV - rn procedures Female Yes 08/24/25 11:21 HX of Motion Sickness No 08/24/25 11:21 HX of N/V After Surgery No 08/24/25 11:21 Non-Smoker Yes 08/24/25 11:21 Duration of Surgery greater Yes 08/24/25 11:21 than 60 minutes Number of Risk Factors 3 08/24/25 11:21 PONV Score Moderate Risk 08/24/25 11:21 Height Weight Height Weight: Anesthesia: Height Weight Height 5 ft 8 in 06/08/25 08:44 Respiratory Assessment Respiratory Assessment - rn procedures: Respiratory Tract Infection Hx - rn procedures Hx Respiratory Tract Infection No 08/24/25 11:21 STOP Sleep Apnea STOP Sleep Apnea - rn procedures: STOP Sleep Apnea - rn procedures Hx Hypertension No 08/24/25 11:21 Hx Sleep Apnea No 08/24/25 11:21 CPAP BIPAP Do you snore loudly (louder No 08/24/25 11:21 than talking or can be heard Do you often feel tired/ No 08/24/25 11:21 fatigued/ sleepy during daytime? Has anyone observed you stop No 08/24/25 11:21 breathing during sleep? STOP Results Negative 08/24/25 11:21 QUESTION #5 FULL TEXT : Do you snore loudly (louder than talking or can be heard through closed doors)? Tobacco Use History Tobacco Use History - rn procedures: Tobacco Use History - rn procedures Tobacco Use Smoking Status Never smoker 08/24/25 11:21 Hx Tobacco Use No 08/24/25 11:21 Years Smoking Packs Smoked per Day Smoking Cessation Date was within the last 15 years Hx Smoking Cessation Date Hx Smoking Cessation Counseling Hematologic Medial History Hematologic Hx - rn procedures: Hematologic Medical Hx - preparator Hx of Blood Transfusion No 08/24/25 11:21 Hx of Transfusion in last 3 No 08/24/25 11:21 Months Date of Last Transfusion (if within last 3 months) Ever experience any problems No 08/24/25 11:21 with transfusion(s)? Specify any problems Hx of Preganancy in last 3 No 08/24/25 11:21 Months Nurse Filling Out Transfusion VCHRISTIN 08/24/25 11:21 Questions: Date: 08/24/25 08/24/25 11:21 Time: 11:08/24/25 11:21 Patient unable to answer at this time (ie. confused, unrespo /Reproductio n History /Reproductiv e History - rn procedures: /Reproductiv e Hx- rn procedures Hx Now No 08/24/25 11:21 Gestational Age (in weeks): EDC: Hx Hx Para Hx Section SAB No 08/24/25 11:21 Does the father of the baby or his family experience fever w Father of the baby Malignant Hypertension [facility] Medical History (Updated 08/24/25 @ 14:14 by Radha Nowak) History of echocardiogram Post-menopausal Arthritis History of pain when walking Vulvar atrophy Vaginal atrophy Mixed incontinence Nocturia Interstitial cystitis Cancer Alcohol use Thyroid disease Bladder disease High cholesterol History of Mohs micrographic surgery for skin cancer Non-smoker History of edema Home Medications ???Medication ???Instructions ???Recorded ???Last Taken ???Type ascorbic acid (vitamin C) 500 mg 500 mg PO DAILY 04/02/22 Unknown H istory tablet,extended release (Vitamin C ER) cholecalciferol (vitamin D3) 25 25 mcg PO DAILY 04/02/22 Unknown H istory mcg (1,000 unit) tablet (Vitamin D3) methimazole 10 mg tablet 5 mg PO QHS 04/02/22 Unknown Histo ry omega 5-hpo-oqc-fish oil 1,000 (more content not included)... Normal [facility] MR/BMSLesleyMaria M 08-22-2025 MR/ILEANALesleyCHIQUI [facility] [address], [address] [place] [id number] OFFICE VISIT Date of Service: 08/22/25 MR#: [id number] Acct: [id number] Name: DAHLIA PARSONS Rep #: [id number] : 1950 Provider: Dr. Leatha Newton i, MD Age/Sex: 75/F [place] [facility] [place]: Signed Intake Vital Signs 06/08/25 08:44 08/22/25 09:03 Height 5 ft 8 in 5 ft 8 in Weight: 141 lb BMI 21.4 BP 97/51 L Pulse 62 Intake Visit Reasons: pre-op urine/C S sign consents Chief Complaint: preoperation visit with urine and concent Tobacco Stemmer Required: No Accompanied by: self Is patient in pain?: No Allergies Penicillins Allergy (Verified 08/22/25 09:00) Swelling Sulfa (Sulfonamide Antibiotics) Allergy (Verified 08/22/25 09:00) Upset Stomach CYCLINES Adverse Reaction (Uncoded 08/22/25 09:00) Upset Stomach Medications ???Medication ???Instructions ???Recorded ???Confirmed ???Type ascorbic acid (vitamin C) 500 mg 500 mg PO DAILY 04/02/22 08/22/25 History tablet,extended release (Vitamin C ER) cholecalciferol (vitamin D3) 25 25 mcg PO DAILY 04/02/22 08/22/25 History mcg (1,000 unit) tablet (Vitamin D3) methimazole 10 mg tablet 5 mg PO QHS 04/02/22 08/22/25 Hist ory omega 6-bto-wec-fish oil 1,000 mg 1 cap PO DAILY 04/02/22 08/22/25 History (120 mg-180 mg) capsule (Fish Oil) pravastatin 20 mg tablet 20 mg PO QHS 04/02/22 08/22/25 His tory triamterene 37.5 1 tab PO BID 04/02/22 08/22/25 His tory mg-hydrochlorothiazid e 25 mg tablet zolpidem 5 mg tablet (Ambien) 5 mg PO QHS 04/02/22 08/22/25 Hist ory estradiol 0.01% (0.1 mg/gram) 1 g vaginal 3XW 06/08/25 08/22/25 History vaginal cream ospemifene 60 mg tablet (Osphena) 60 mg PO QDAY #30 tabs 06/08/25 1 10/22/24 Rx potassium chloride 10 mEq 10 meq PO QDAY 06/08/25 08/22/25 H istory tablet,extended release(part/cryst) Saccharomyces boulardii 250 mg 250 mg PO BID 08/22/25 08/22/25 Hi story capsule (Daily Probiotic (S. boulardii)) ascorbate calcium (vitamin C) 500 500 mg PO BID 08/22/25 08/22/25 H istory mg tablet biotin 10 mg tablet 10 mg PO QDAY 08/22/25 08/22/25 Hi story magnesium 200 mg tablet 200 mg PO QDAY 08/22/25 08/22/25 H istory methenamine 81 mg-m.blue 10.8 1 tab PO BID #180 tabs 08/22/25 Rx mg-sod phos 40.8 mg-p.salicy-hyos tablet (Urelle) Have you fallen in the past year?: No Nurse's Note: the vaginal irritation has started back and wonders if she can do testosterone cream daily. [facility] Medical History Vulvar atrophy Vaginal atrophy Mixed incontinence Nocturia Interstitial cystitis Cancer Alcohol use Thyroid disease Bladder disease High cholesterol History of Mohs micrographic surgery for skin cancer Non-smoker History of edema Surgical History Hx of appendectomy Hx of hysterectomy Hx of breast biopsy Social History Smoking Status: Never smoker HPI HPI Urology Chief Complaint: preoperation visit with urine and concent Details: DAHLIA PARSONS, is a 75 F. The patient is here for preoperative history and physical prior to midurethral sling and cystoscopy. There are no new symptoms since the last visit. The procedure, recovery and expectations were explained. The risks, benefits and alternatives were discussed, including but not limited to, the risks of anesthesia, bleeding, infection, injury, pain and the need for further intervention. We have discussed the risk of exposure to and/or potential harm posed by the COVID-19 virus with having a surgery/procedure at this time. A joint decision was made at this time to proceed with the scheduled surgery/procedure as indicated on the consent form. She is having ankle surgery in [place] where the weather is better for recovery. Her sister was found to have a brain aneurysm and will be having surgery soon. ROS Const Constitutional: No chills, fatigue, fever(s), headache(s), night sweats, weakness, weight change, abnormal sleep pattern or change in appetite Eyes Eyes: No change in vision ENT ENT: No headache(s) or dry mouth Resp Respiratory: No cough, chest congestion, shortness of breath or wheezing Cardio Cardiology: Positive for other (No chest pain.); No shortness of breath, irregular heart rhythm or lightheadedness Gastro GI: Positive for other (No nausea.); No abdominal pain, change in bowel habits, constipation, diarrhea or vomiting Musc Musculoskeletal: No abnormal gait Skin Skin: No yellowing of the eye, lesions, itchy eyes, rash or skin ulcer Neuro Neurology: No abnormal gait, confusion, dizziness, weakness, headache(s) or memory loss Psych (more content not included)... Normal [facility] BD DXA - AXIAL SKELETONon BD DXA - AXIAL SKELETON * * *Final Report* * * DATE OF EXAM: Jul 25 2025 1:24PM DEANDRE 0804 - BD DXA - AXIAL SKELETON B / PROCEDURE REASON: Z13.820 ENCOUNTER FOR SCREENING FOR OSTEOPOROSIS, N95.1 MENOPAUSAL AND FEMALE CL * * * * Physician Interpretation * * * * EXAMINATION: DXA BONE DENSITOMETRY BD DXA - AXIAL SKELETON PATIENT DEMOGRAPHICS: Age: 75 years, Gender: Female SCANNER INFORMATION: DXA Model: [id number] Date Scanned: 07/25/2025 1:24 PM CLINICAL HISTORY: DIAGNOSTIC Z13.820 ENCOUNTER FOR SCREENING FOR OSTEOPOROSIS, N95.1 MENOPAUSAL AND FEMALE CL. RISK FACTORS FOR OSTEOPOROSIS AND ASSOCIATED FRACTURES REPORTED BY THIS PATIENT: Please refer to Bone Health Questionnaire in the EMR CURRENT THERAPY: Please refer to Bone Health Questionnaire in the EMR TECHNICAL LIMITATIONS: Degenerative disease of the spine RESULTS: Comparison made to prior DXA dated: 03/27/2023 Lumbar Spine (L1, L2, L3, L4): Total BMD: 1.567, T-score: 3.2, Z-score: 5.0 Prior Lumbar spine: 1.49 g/cm2 Statistically significant increase Right Femoral Neck: 1.058, T-score 0.1, Z-score 2.2 Prior Right Femoral Neck: 1.048 g/cm2 No statistically significant change Right Total Hip: 1.11 , T-score 0.8, Z-score 2.7 Prior Right Total Hip: 1.107 g/cm2 No statistically significant change Left Femoral Neck: 0.961, T-score -0.6, Z-score 1.5 Prior Left Femoral Neck: 0.997 g/cm2 No statistically significant change Left Total Hip: 1.056, T-score 0.4, Z-score 2.2 Prior Left Total Hip: 1.03 g/cm2 No statistically significant change CHANGE IS STATISTICALLY SIGNIFICANT IN THE SPINE OR HIP IF GREATER THAN OR EQUAL TO 0.04 g/cm2 VERTEBRAL FRACTURE ASSESSMENT Not performed. TRABECULAR BONE ASSESSMENT TBS not performed: not ordered IMPRESSION: THE LOWEST T-SCORE IS -0.6 IN THE LEFT HIP 1) DIAGNOSIS (based on BMD alone): NORMAL BONE DENSITY Caution: Medical conditions other than osteoporosis may cause low bone density, such as osteomalacia or renal osteodystrophy. Clinical correlation is necessary. 2) FRACTURE RISK ( Based on FRAX) 10-year absolute fracture risk: - major osteoporotic fracture = 7.8 % - hip fracture = 1.3 % - A diagnosis of Osteoporosis, a 10 year probability of hip fracture greater than or equal to 3% or a 10 year probability of any major osteoporosis-related fracture greater than or equal to 20% should be considered for treatment. - DXA scanner generated FRAX calculations may slightly differ from online FRAX calculations due to differences in software versions. - All recommendations and calculations are to be considered as guidelines and should not replace sound clinical judgement - Caution: Fracture risk may be increased independent of BMD in patients with corticosteroid use, age greater than 65 years, or a history of prior fragility fracture. RECOMMENDATIONS: Follow-up in 2 years or as clinically indicated. Patients that are taking corticosteroids, are transplant recipients or have hyperparathyroidism should have annual follow-up. Follow-up scans should always be done on the same machine for accurate comparison. FOR MORE INFORMATION ABOUT DIAGNOSIS AND TREATMENT: [facility] Center for Osteoporosis and Metabolic Bone Disease:? www.ccf.org/arthritis /osteo National Osteoporosis Foundation:? www.nof.org International Society of Clinical Densitometry www.iscd.org Ticket Maker: JOSE Transcribe Date/Time: Jul 25 2025 1:46P Dictated by : ROCIO SANDOVAL DO This examination was interpreted and the report reviewed and electronically signed by: ROCIO SANDOVAL DO on Jul 25 2025 3:19PM EST [id number] N -0.6 Normal [facility] CBC (INCLUDES DIFF/PLT)on Basophils (Bld) [#/Vol] 0.042 10*3/uL Normal 0-200 [facility] Comment on above: Performed By: #### 6 399 #### [facility] [address] Blister Pack Operator: Aaron Barnes MD Basophils/100 WBC (Bld) 0.8 % Normal [facility] Comment on above: Performed By: #### 6 399 #### [facility] [address] Blister Pack Operator: Aaron Barnes MD Eosinophils (Bld) [#/Vol] 0.239 10*3/uL Normal 15-500 [facility] Comment on above: Performed By: #### 6 399 #### [facility] of [address], [address] [place] [address] Blister Pack Operator: Aaron Barnes MD Eosinophils/100 WBC (Bld) 4.6 % Normal [facility] Comment on above: Performed By: #### 6 399 #### [facility] of [place] [address] Blister Pack Operator: Aaron Barnes MD Erythrocyte distribution width (RBC) [Ratio] 12.3 % Normal 11.0-15.0 [facility] Comment on above: Performed By: #### 6 399 #### [facility] of [place] [address] Blister Pack Operator: Aaron Barnes MD Hematocrit (Bld) [Volume fraction] 39.4 % Normal 35.0-45.0 [facility] Comment on above: Performed By: #### 6 399 #### [facility] of [place] [address] Blister Pack Operator: Aaron Barnes MD Hemoglobin (Bld) [Mass/Vol] 13.5 g/dL Normal 11.7-15.5 [facility] Comment on above: Performed By: #### 6 399 #### [facility] of [place] [address] Blister Pack Operator: Aaron Barnes MD Lymphocytes (Bld) [#/Vol] 1.492 10*3/uL Normal 850-3900 [facility] Comment on above: Performed By: #### 6 399 #### [facility] of [place] [address] Blister Pack Operator: Aaron Barnes MD Lymphocytes/100 WBC (Bld) 28.7 % Normal [facility] Comment on above: Performed By: #### 6 399 #### [facility] [place] [address] Blister Pack Operator: Aaron Barnes MD MCH (RBC) [Entitic mass] 34.4 pg High 27.0-33.0 [facility] Comment on above: Performed By: #### 6 399 #### [facility] [place] [address] Blister Pack Operator: Aaron Barnes MD MCHC (RBC) [Mass/Vol] 34.3 g/dL Normal 32.0-36.[address] [facility] Comment on above: Result Comment: For adults, a slight decrease in the calculated MCHC value (in the range of 30 to 32 g/dL) is most likely not clinically significant; however, it should be interpreted with caution in correlation with other red cell parameters and the patient's clinical condition. Performed By: #### 6 399 #### [facility] [place] [address] Blister Pack Operator: Aaron Barnes MD MCV (RBC) [Entitic vol] 100.3 fL High 80.0-100.0 [facility] Comment on above: Performed By: #### 6 399 #### [facility] [place] [address] Blister Pack Operator: Aaron Barnes MD Monocytes (Bld) [#/Vol] 0.458 10*3/uL Normal 200-950 [facility] Comment on above: Performed By: #### 6 399 #### [facility] [place] [address] Blister Pack Operator: Aaron Barnes MD Monocytes/100 WBC (Bld) 8.8 % Normal [facility] Comment on above: Performed By: #### 6 399 #### [facility] [place] [address] Blister Pack Operator: Aaron Barnes MD Neutrophils (Bld) [#/Vol] 2.969 10*3/uL Normal 7641-7549 [facility] Comment on above: Performed By: #### 6 399 #### [facility] [place] [address] Blister Pack Operator: Aaron Barnes MD Neutrophils/100 WBC (Bld) 57.1 % Normal [facility] Comment on above: Performed By: #### 6 399 #### [facility] [address], [address] [place] [address] Blister Pack Operator: Aaron Barnes MD Platelet mean volume (Bld) [Entitic vol] 11.7 fL Normal 7.5-12.5 [facility] Comment on above: Performed By: #### 6 399 #### [facility] [place] [address] Blister Pack Operator: Aaron Barnes MD Platelets (Bld) [#/Vol] 183 10*3/uL Normal 140-400 [facility] Comment on above: Performed By: #### 6 399 #### [facility] [place] [address] Blister Pack Operator: Aaron Barnes MD RBC (Bld) [#/Vol] 3.93 10*6/uL Normal 3.80-5.10 [facility] Comment on above: Performed By: #### 6 399 #### [facility] [address], [address] [place] [address] Blister Pack Operator: Aaron Barnes MD WBC (Bld) [#/Vol] 5.2 10*3/uL Normal 3.8-10.8 [facility] Comment on above: Performed By: #### 6 399 #### [facility] [place] [address] Blister Pack Operator: Aaron Barnes MD HEMOGLOBIN A1con 06-10-2025 HbA1c (Bld) [Mass fraction] 5.3 % Normal <5.7 [facility] Comment on above: Result Comment: For the purpose of screening for the presence of diabetes: <5.7% Consistent with the absence of diabetes 5.7-6.4% Consistent with increased risk for diabetes (prediabetes) > or =6.5% Consistent with diabetes This assay result is consistent with a decreased risk of diabetes. Currently, no consensus exists regarding use of hemoglobin A1c for diagnosis of diabetes in children. According to [place] [employer] (ADA) guidelines, hemoglobin A1c <7.0% represents optimal control in non- diabetic patients. Different metrics may apply to specific patient populations. Standards of Medical Care in Diabetes(ADA). Performed By: #### 6 399 #### [facility] [address], [address] [place] [address] Blister Pack Operator: Aaron Barnes MD MR/ILEANA.Maria M 06-08-2025 MR/ARY [facility] [address] [facility], [address] [place] [address] OFFICE VISIT Date of Service: 06/08/25 MR#: [id number] Acct: [id number] Name: DAHLIA PARSONS Rep #: [id number] : 1950 Provider: Dr. Leatha Newton i, MD Age/Sex: 74/F Location: [facility] Status: Signed Intake Vital Signs 04/04/22 07:15 06/08/25 08:44 Height 5 ft 8 in 5 ft 8 in Weight: 141 lb BMI 21.4 BP 136/80 H Pulse 82 Intake Visit Reasons: check f/u ( back from [place]) Chief Complaint: follow up Tobacco Stemmer Required: No Accompanied by: Self Is patient in pain?: No Allergies Penicillins Allergy (Verified 06/08/25 08:41) Swelling Sulfa (Sulfonamide Antibiotics) Allergy (Verified 06/08/25 08:41) Upset Stomach CYCLINES Adverse Reaction (Uncoded 06/08/25 08:41) Upset Stomach Medications ???Medication ???Instructions ???Recorded ???Confirmed ???Type ascorbic acid (vitamin C) 500 mg 500 mg PO DAILY 04/02/22 06/08/25 History tablet,extended release (Vitamin C ER) cholecalciferol (vitamin D3) 25 25 mcg PO DAILY 04/02/22 06/08/25 History mcg (1,000 unit) tablet (Vitamin D3) methenamine 81 mg-m.blue 10.8 1 tab PO BID 04/02/22 06/08/25 His tory mg-sod phos 40.8 mg-p.salicy-hyos tablet (Urelle) methimazole 10 mg tablet 5 mg PO QHS 04/02/22 06/08/25 Hist ory omega 9-ccj-ugb-fish oil 1,000 mg 1 cap PO DAILY 04/02/22 06/08/25 History (120 mg-180 mg) capsule (Fish Oil) pravastatin 20 mg tablet 20 mg PO QHS 04/02/22 06/08/25 His tory triamterene 37.5 1 tab PO BID 04/02/22 06/08/25 His tory mg-hydrochlorothiazid e 25 mg tablet zolpidem 5 mg tablet (Ambien) 5 mg PO QHS 04/02/22 06/08/25 Hist ory estradiol 0.01% (0.1 mg/gram) 1 g vaginal 3XW 06/08/25 06/08/25 History vaginal cream ospemifene 60 mg tablet (Osphena) 60 mg PO QDAY #30 tabs 06/08/25 0 06/08/25 Rx potassium chloride 10 mEq 10 meq PO QDAY 06/08/25 06/08/25 H istory tablet,extended release(part/cryst) Have you fallen in the past year?: No Nurse's Note: 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 sensation of vaginal rawness all the time. ankle surgery 05/14/24 [facility] Medical History Vulvar atrophy Vaginal atrophy Mixed incontinence Nocturia Interstitial cystitis Cancer Alcohol use Thyroid disease Bladder disease High cholesterol History of Mohs micrographic surgery for skin cancer Non-smoker History of edema Surgical History Hx of appendectomy Hx of hysterectomy Hx of breast biopsy Social History Smoking Status: Never smoker [facility] HPI Urology Chief Complaint: follow up Details: DAHLIA PARSONS, is a 74 F. She is here for medication follow up. She has been taking vitamin C, probiotics and Urelle for control of her interstitial cystitis and infection prevention. She is having increasing sensation of vaginal/vulvar rawness that is constant. She feels the incontinence and pads make it worse. The biggest issue is the stress incontinence. She failed Bulkamid in 2021. We discussed a midurethral sling and she is ready to schedule. She has not had any urinary tract infections since the last visit. She has not had any blood in the urine since the last visit. She has no new urologic concerns to discuss today. 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 ROS Const Constitutional: No chills, fatigue, fever(s), headache(s), night sweats, weakness, weight change, abnormal sleep pattern or change in appetite Eyes Eyes: No change in vision ENT ENT: No headache(s) or dry mouth Resp Respiratory: No cough, chest congestion, shortness of breath or wheezing Cardio Cardiology: Positive for other (No chest pain.); No shortness of breath, irregular heart rhythm or lightheadedness Gastro GI: Positive for other (No nausea.); No abdominal pain, change in bowel habits, constipation, diarrhea or vomiting Musc Musculoskeletal: No abnormal gait Skin Skin: No yellowing of the eye, lesions, itchy eyes, rash or skin ulcer Neuro Neurology: No abnormal gait, confusion, dizziness, weakness, headache(s) or memory loss Psych Psychiatric: No abnormal sleep pattern, No change in appetite, No confusion and No memory loss Endo Endocrine: No fatigue, increased thirst/drinking or weight change Aller/Imm Allergy/Immunologic: No itchy eyes or wheezing Wan/Lymp Hematologic/Lymphatic : No easy bleeding, easy bruising or enlarged lymph nodes Exam Const General: cooperative, healthy appearing, comfortable and no acute distress [facility] Head: normocephalic and atraumatic Ears: hearing grossly normal bilaterally and external ears normal Nose: external nose norm (more content not included)... Normal [facility] SCREENING W [facility] 05-27 JAMSHID SCREENING W [facility] * * *Final Report* * * DATE OF EXAM: May 27 2025 10:15AM ZEUS [id number] - [facility] SCREENING W CECI / PROCEDURE REASON: Z12.31 SCREENING * * * * Physician Interpretation * * * * [place] [address] [place] [address] #[id number] - [facility] SCREENING W CECI HISTORY: 74 year-old patient presents for screening. No current complaints. Patient states no personal history of breast cancer. The patient has a family history of breast cancer. COMPARISON STUDIES: The present examination has been compared to prior imaging studies dated 09/27/2019 (mammogram), 09/20/2020 (mammogram), 10/02/2021 (mammogram), 10/03/2022 (mammogram) and 02/12/2024 (mammogram). MAMMOGRAM TECHNIQUE: The study was acquired using full field digital technology and interpreted from soft copy. Digital Breast Tomosynthesis (DBT) images were obtained and used to assist in the interpretation of this examination. MAMMOGRAM FINDINGS: The breasts are heterogeneously dense, which may obscure small masses. No suspicious masses, calcifications or other abnormalities are seen in either breast. There are no significant interval changes. IMPRESSION: There is no mammographic evidence of malignancy in either breast. Routine screening mammogram is recommended. Annual mammogram will be due in 1 year. BI-RADS Category 1: Negative RISK: Based on the Tyrer-Cuzick (TC) risk assessment model, this patient has a 3.9% lifetime risk of developing breast cancer, meaning they are at average risk for developing breast cancer. However, this is only an estimate based on available history provided on the patient's questionnaire. We encourage all patients to talk with their providers about these results, further recommendations for managing breast health, and appropriate supplemental screening options if the patient has dense breast tissue. Interpreting Radiologist: Grady Lackey M.D. Electronically signed on: 05/30/2025 Ticket Maker: VALERIA [employer] Date/Time: May 27 2025 9:57A Dictated by : GRADY LACKEY MD This examination was interpreted and the report reviewed and electronically signed by: GRADY LACKEY MD on May 30 2025 11:45PM EST [id number] N Normal [facility] CBC (INCLUDES DIFF/PLT)on Basophils (Bld) [#/Vol] 0.038 10*3/uL Normal 0-200 [facility] Comment on above: Performed By: #### 6 399, 84780, 072, 4014 #### [facility] [address] [address] Blister Pack Operator: Aaron Barnes MD Basophils/100 WBC (Bld) 0.7 % Normal [facility] Comment on above: Performed By: #### 6 399, 63704, 370, 8497 #### [facility] [place] [address] Blister Pack Operator: Aaron Barnes MD Eosinophils (Bld) [#/Vol] 0.216 10*3/uL Normal 15-500 [facility] Comment on above: Performed By: #### 6 399, 67641, 89, 7600 #### [facility] [address], [address] [place] [address] Blister Pack Operator: Aaron Barnes MD Eosinophils/100 WBC (Bld) 4.0 % Normal [facility] Comment on above: Performed By: #### 6 399, 04870, 89, 7600 #### [facility] [place] [address] Blister Pack Operator: Aaron Barnes MD Erythrocyte distribution width (RBC) [Ratio] 12.3 % Normal 11.0-15.0 [facility] Comment on above: Performed By: #### 6 399, 80647, 89, 7600 #### [facility] [address], [address] [place] [address] Blister Pack Operator: Aaron Barnes MD Hematocrit (Bld) [Volume fraction] 41.1 % Normal 35.0-45.0 [facility] Comment on above: Performed By: #### 6 399, 08503, 89, 7600 #### [facility] [place] [address] Blister Pack Operator: Aaron Barnes MD Hemoglobin (Bld) [Mass/Vol] 13.7 g/dL Normal 11.7-15.5 [facility] Comment on above: Performed By: #### 6 399, 15512, 89, 7600 #### [facility] [place] [address] Blister Pack Operator: Aaron Barnes MD Lymphocytes (Bld) [#/Vol] 1.15 10*3/uL Normal 850-3900 [facility] Comment on above: Performed By: #### 6 399, 19597, 899, 7600 #### [facility] [address] [place] [place] [address] Blister Pack Operator: Aaron Barnes MD Lymphocytes/100 WBC (Bld) 21.3 % Normal [facility] Comment on above: Performed By: #### 6 399, , , 0 #### [facility] [place] [address] Blister Pack Operator: Aaron Barnes MD MCH (RBC) [Entitic mass] 33.6 pg High 27.0-33.0 [facility] Comment on above: Performed By: #### 6 399, , , 0 #### [facility] [place] [address] Blister Pack Operator: Aaron Barnes MD MCHC (RBC) [Mass/Vol] 33.3 g/dL Normal 32.0-36.[address] [facility] Comment on above: Result Comment: For adults, a slight decrease in the calculated MCHC value (in the range of 30 to 32 g/dL) is most likely not clinically significant; however, it should be interpreted with caution in correlation with other red cell parameters and the patient's clinical condition. Performed By: #### 6 399, , , 0 #### [facility] [place] [address] Blister Pack Operator: Aaron Barnes MD MCV (RBC) [Entitic vol] 100.7 fL High 80.0-100.0 [facility] Comment on above: Performed By: #### 6 399, , , 0 #### [facility] [place] [address] Blister Pack Operator: Aaron Barnes MD Monocytes (Bld) [#/Vol] 0.486 10*3/uL Normal 200-950 [facility] Comment on above: Performed By: #### 6 399, , , 0 #### [facility] [place] [address] Blister Pack Operator: Aaron Barnes MD Monocytes/100 WBC (Bld) 9.0 % Normal [facility] Comment on above: Performed By: #### 6 399, 93311, 89, 7600 #### [facility] [address], [address] [place] [address] Blister Pack Operator: Aaron Barnes MD Neutrophils (Bld) [#/Vol] 3.51 10*3/uL Normal 0929-7072 [facility] Comment on above: Performed By: #### 6 399, 12743, 89, 7600 #### [facility] [address], [address] [place] [address] Blister Pack Operator: Aaron Barnes MD Neutrophils/100 WBC (Bld) 65 % Normal [facility] Comment on above: Performed By: #### 6 399, 68674, 89, 7600 #### [facility] [address], [address] [place] [address] Blister Pack Operator: Aaron Barnes MD Platelet mean volume (Bld) [Entitic vol] 11.5 fL Normal 7.5-12.5 [facility] Comment on above: Performed By: #### 6 399, 11343, 89, 7600 #### [facility] [place] [address] Blister Pack Operator: Aaron Barnes MD Platelets (Bld) [#/Vol] 197 10*3/uL Normal 140-400 [facility] Comment on above: Performed By: #### 6 399, 65420, 89, 7600 #### [facility] [place] [address] Blister Pack Operator: Aaron Barnes MD RBC (Bld) [#/Vol] 4.08 10*6/uL Normal 3.80-5.10 [facility] Comment on above: Performed By: #### 6 399, 02189, 89, 7600 #### [facility] [address], [address] [place] [address] Blister Pack Operator: Aaron Barnes MD WBC (Bld) [#/Vol] 5.4 10*3/uL Normal 3.8-10.8 [facility] Comment on above: Performed By: #### 6 399, 22315, 89, 7600 #### [facility] [place] [address] Blister Pack Operator: Aaron Barnes MD [facility] 04-08-2025 Albumin [Mass/Vol] 4.6 g/dL Normal 3.6-5.1 [facility] Comment on above: Performed By: #### 6 399, 81696, 89, 7600 #### [facility] [place] [address] Blister Pack Operator: Aaron Barnes MD Albumin/Globulin [Mass ratio] 2.3 {ratio} Normal 1.0-2.5 [facility] Comment on above: Performed By: #### 6 399, 29622, 89, 7600 #### [facility] [place] [address] Blister Pack Operator: Aaron Barnes MD ALP [Catalytic activity/Vol] 53 U/L Normal 37-153 [facility] Comment on above: Performed By: #### 6 399, 25507, 89, 7600 #### [facility] [place] [address] Blister Pack Operator: Aaron Barnes MD ALT [Catalytic activity/Vol] 15 U/L Normal 6-29 [facility] Comment on above: Performed By: #### 6 399, 11298, 89, 7600 #### [facility] [place] [address] Blister Pack Operator: Aaron Barnes MD AST [Catalytic activity/Vol] 17 U/L Normal 10-35 [facility] Comment on above: Performed By: #### 6 399, 18527, 89, 7600 #### [facility] [place] [address] Blister Pack Operator: Aaron Barnes MD Bilirubin [Mass/Vol] 0.8 mg/dL Normal 0.2-1.2 [facility] Comment on above: Performed By: #### 6 399, 12297, 89, 7600 #### [facility] [place] [address] Blister Pack Operator: Aaron Barnes MD BUN/CREATININE RATIO SEE NOTE: Normal 6-22 [facility] Comment on above: Result Comment: Not Reported: BUN and Creatinine are within reference range. Performed By: #### 6 399, 84159, 89, 7600 #### [facility] [address], [address] [place] [address] Blister Pack Operator: aAron Barnes MD Calcium [Mass/Vol] 9.9 mg/dL Normal 8.6-10.4 [facility] Comment on above: Performed By: #### 6 399, 41896, 89, 7600 #### [facility] [place] [address] Blister Pack Operator: Aaron Barnes MD Chloride [Moles/Vol] 101 mmol/L Normal 98-110 [facility] Comment on above: Performed By: #### 6 399, 23877, 89, 7600 #### [facility] [place] [address] Blister Pack Operator: Aaron Barnes MD CO2 [Moles/Vol] 27 mmol/L Normal 20-32 [facility] Comment on above: Performed By: #### 6 399, 23490, 89, 7600 #### [facility] [place] [address] Blister Pack Operator: Aaron Barnes MD Creatinine [Mass/Vol] 0.89 mg/dL Normal 0.60-1.[address] [facility] Comment on above: Performed By: #### 6 399, 38943, 899, 7600 #### [facility] [place] [address] Blister Pack Operator: Aaron Barnes MD GFR/1.73 sq M.predicted among non-blacks MDRD (S/P/Bld) [Vol rate/Area] 67 mL/min/{1.73_m2} Normal > OR = 60 [facility] Comment on above: Performed By: #### 6 399, 06015, 89, 7600 #### [facility] [place] [address] Blister Pack Operator: Aaron Barnes MD Globulin (S) [Mass/Vol] 2.0 g/dL Normal 1.9-3.7 [facility] Comment on above: Performed By: #### 6 399, 27486, , 7600 #### [facility] [place] [address] Blister Pack Operator: Aaron Barnes MD Glucose [Mass/Vol] 116 mg/dL High 65-99 [facility] Comment on above: Result Comment: Fasting reference interval For someone without known diabetes, a glucose value between 100 and 125 mg/dL is consistent with prediabetes and should be confirmed with a follow-up test. Performed By: #### 6 399, 06525, , 0 #### [facility] [place] [address] Blister Pack Operator: Aaron Barnes MD Potassium [Moles/Vol] 3.7 mmol/L Normal 3.5-5.3 [facility] Comment on above: Performed By: #### 6 399, 93256, , 7600 #### [facility] [place] [address] Blister Pack Operator: Aaron Barnes MD Protein [Mass/Vol] 6.6 g/dL Normal 6.1-8.1 [facility] Comment on above: Performed By: #### 6 399, 08792, 89, 7600 #### [facility] [place] [address] Blister Pack Operator: Aaron Barnes MD Sodium [Moles/Vol] 140 mmol/L Normal 135-146 [facility] Comment on above: Performed By: #### 6 399, 69349, 89, 7600 #### [facility] [place] [id number] Blister Pack Operator: Aaron Barnes MD Urea nitrogen [Mass/Vol] 20 mg/dL Normal 7-25 [facility] Comment on above: Performed By: #### 6 399, 16226, 899, 7600 #### [facility] [address], [address] [place] [address] Blister Pack Operator: Aaron Barnes MD LIPID PANEL, [facility] 03-21 Cholesterol [Mass/Vol] 209 mg/dL High <200 [facility] Comment on above: Order Comment: FASTI NG:YES FASTING: YES Performed By: #### 6 399, 84580, 899, 7600 #### [facility] [address], [address] [place] [address] Blister Pack Operator: Aaron Barnes MD Cholesterol in HDL [Mass/Vol] 83 mg/dL Normal > OR = 50 [facility] Comment on above: Order Comment: FASTI NG:YES FASTING: YES Performed By: #### 6 399, 65761, 89, 7600 #### [facility] [address], [address] [place] [address] Blister Pack Operator: Aaron Barnes MD Cholesterol in LDL [Mass/Vol] 107 mg/dL High [facility] Comment on above: Order Comment: FASTI NG:YES FASTING: YES Result Comment: Refe rence range: <100 Desirable range <100 mg/dL for primary prevention; <70 mg/dL for patients with CHD or diabetic patients with > or = 2 CHD risk factors. LDL-C is now calculated using the Dale-Isael calculation, which is a validated novel method providing better accuracy than the Friedewald equation in the estimation of LDL-C. Dale REYES et al. MICHA. 2013;310(19): 4491-2091 (http://education.[employer]/faq/PHD368) Performed By: #### 6 399, 81807, 899, 7600 #### [facility] [address], [address] [place] [address] Blister Pack Operator: Aaron Barnes MD Cholesterol.total/Cho lesterol in HDL [Mass ratio] 2.5 {ratio} Normal <5.0 [facility] Comment on above: Order Comment: FASTI NG:YES FASTING: YES Performed By: #### 6 399, 30074, 899, 7620 #### [facility] [place] [address] Blister Pack Operator: Aaron Barnes MD NON HDL CHOLESTEROL 126 mg/dL (calc) Normal <130 [facility] Comment on above: Order Comment: FASTI NG:YES FASTING: YES Result Comment: For patients with diabetes plus 1 major ASCVD risk factor, treating to a non-HDL-C goal of <100 mg/dL (LDL-C of <70 mg/dL) is considered a therapeutic option. Performed By: #### 6 399, 72872, 899, 4480 #### [facility] [place] [address] Blister Pack Operator: Aaron Barnes MD Triglyceride [Mass/Vol] 98 mg/dL Normal <150 [facility] Comment on above: Order Comment: FASTI NG:YES FASTING: YES Performed By: #### 6 399, 71648, 899, 5090 #### [facility] [place] [address] Blister Pack Operator: Aaron Barnes MD TSHon 04-08-2025 TSH Qn 2.96 m[IU]/L Normal 0.40-4.50 [facility] Comment on above: Performed By: #### 6 399 #### [facility] [place] [address] Blister Pack Operator: Aaron Perales 09-10-2024 CNPN Telephone ([facility]) DAHLIA PARSONS ([id number]) 1950 F Date Time Provider Department 09/10/24 OLIVIA RAMOS [facility] During your visit today, we recorded the following information about you: Olivia Ramos RN 09/10/2024 3:21 PM Signed Spoke with patient regarding reminder for stress test on Friday and given instructions. Allergies As of Date: 09/10/2024 Noted Allergy Reaction PENICILLINS 09/24/2011 16 - Unknown SULFA (SULFONAMIDE ANTIBIOTICS) 02/17/2013 9 - Itching Z PACK (AZITHROMYCIN) 02/17/2013 9 - Itching Date Reviewed: 03/27/2014 Reviewed by: Sharmaine Bhandari (Rn), RN - Fully Assessed Reason for Visit: Reminder Call [8054] Prescriptions as of 09/10/2024 - ondansetron 4 mg tablet Take 1 tablet by mouth every 4 hours as needed for Nausea/Vomiting. - HYDROcodone-acetamino phen 5-325 mg per tablet Take 1 tablet by mouth every 6 hours as needed. - nitrofurantoin monhydrate and macrocrystal (MACROBID) 100 mg capsule Take 1 capsule by mouth twice daily. - pravastatin 10 mg tablet Take 10 mg by mouth once daily. - metaxalone 800 mg tablet Take 1 tablet by mouth three times daily as needed for Pain (or muscle spasms). - Alpha Lipoic Acid 600 mg cap Take by mouth once daily. - Gabapentin 300 mg Tab Take by mouth once daily. - valACYclovir (VALTREX) 500 mg tablet Take 1,000 mg by mouth three times daily. - ezetimibe (ZETIA) 10 mg tablet Take 10 mg by mouth once daily. - Quinapril-Hydrochloro thiazide (ACCURETIC) 20-25 mg per tablet Take 1 tablet by mouth once daily. - levothyroxine (SYNTHROID) 100 mcg tablet Take by mouth daily before breakfast. 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 DAHLIA PARSONS : 1950 Age: 74 years Gender: F History of hypertension. Primary rhythm: sinus. Height: 170.18 cm BSA: 1.73 m Weight: 63.50 kg BMI: 21.9 kg/m Heart rate 70 bpm Blood pressure 138/57 mmHg Color Doppler was utilized to interrogate the cardiac valves assessed and spectral Doppler was utilized to determine the flow velocities and pressure gradients reported in this exam. MEASUREMENTS: Value Indexed Normal Max aortic dimension 3.6 cm Ao < 3.8 LV ID (diastole) 4.5 cm (2D) 2.58 cm/m LV ID (systole) 2.7 cm (2D) 1.54 cm/m IVS, leaflet tips 0.8 cm (2D) Posterior wall thickness 0.9 cm (2D) Left ventricular mass 118 g (2D) 68 g/m LV stroke volume 49 ml (2D biplane) LV end diastolic volume 76 ml (2D biplane) 43.7 ml/m 29<=EDVi<62 LV end systolic volume 27 ml (2D biplane) 15.6 ml/m Ejection Fraction 64 % (2D biplane) EF > 54 FINDINGS: LEFT VENTRICLE The left ventricle is normal in size. Left ventricular systolic function is normal. Normal left ventricular diastolic function. Mitral annular lateral E/e': 11.4. Mitral annular septal E/e': 10.8. Wall Motion: All scored segments are normal. RIGHT VENTRICLE The right ventricle is normal in size. Right ventricular systolic function is normal. RV systolic tissue Doppler velocity is 17.0 cm/s. Tricuspid annular displacement is 2.6 cm. Estimated right ventricular systolic pressure is 30 mmHg consistent with normal pulmonary artery pressures. Estimated right atrial pressure is 3 mmHg based on IVC assessment. LEFT ATRIUM The left atrial cavity is mildly dilated. Pulmonary Veins: The pulmonary venous pattern showed blunted systolic flow. RIGHT ATRIUM The right atrial cavity is normal in size. Inferior Vena Cava: The inferior vena cava appears normal measuring 1.7 cm. The vessel decreases greater than 50 percent with inspiration. MITRAL VALVE There is mild (1+ - 2+) mitral valve regurgitation. There is mild thickening. Regurgitant orifice area (PISA) is 0.19 cm . The pressure half time is 73 msec. The peak mitral E/A ratio is 1.19. The mitral flow deceleration time is 251 msec. TRICUSPID VALVE The tricuspid valve leaflets are structurally normal. There is mild (1+ - 2+) tricuspid valve regurgitation. AORTIC VALVE There is no aortic valve regurgitation. Tricuspid aortic valve. There is mild thickening of the right and non coronary aortic cusps. PULMONIC VALVE The pulmonic valve cusps are structurally normal. There is mild (1+) pulmonic valve regurgitation. AORTA The visualized aorta is normal in size. Measurements - Sinus: 2.8 cm. Mid ascending aorta 3.6 cm. PERICARDIUM There is no pericardial effusion. There is an epicardial fat pad. CONCLUSIONS: - Exam indication: edema in legs - The left ventricle is normal in size. Left ventricular systolic function is normal. EF = 64 5% (2D biplane) - The right ventricle is normal in size. Right ventricular systolic function is normal. - The left atrial cavity is mildly dilated. - There is mild (1-2+) mitral regurgitation. - There is mild (1-2+) tricuspid regurgitation. - The patient has not had a prior CC echocardiographic exam for comparison. * * * Final * * * [facility] [employer] [facility] : [id number] Normal [facility] CBC (INCLUDES DIFF/PLT)on Basophils (Bld) [#/Vol] 0.032 10*3/uL Normal 0-200 [facility] Comment on above: Performed By: #### 6 399 #### [facility] [address], [address] [place] [id number] Blister Pack Operator: Aaron Barnes MD Basophils/100 WBC (Bld) 0.5 % Normal [facility] Comment on above: Performed By: #### 6 399 #### [facility] [place] [address] Blister Pack Operator: Aaron Barnes MD Eosinophils (Bld) [#/Vol] 0.132 10*3/uL Normal 15-500 [facility] Comment on above: Performed By: #### 6 399 #### [facility] [place] [address] Blister Pack Operator: Aaron Barnes MD Eosinophils/100 WBC (Bld) 2.1 % Normal [facility] Comment on above: Performed By: #### 6 399 #### [facility] [place] [address] Blister Pack Operator: Aaron Barnes MD Erythrocyte distribution width (RBC) [Ratio] 12.1 % Normal 11.0-15.0 [facility] Comment on above: Performed By: #### 6 399 #### [facility] [place] [address] Blister [employer] Operator: Aaron Barnes MD Hematocrit (Bld) [Volume fraction] 41.0 % Normal 35.0-45.0 [facility] Comment on above: Performed By: #### 6 399 #### [facility] [place] [address] Blister [employer] Operator: Aaron Barnes MD Hemoglobin (Bld) [Mass/Vol] 14.6 g/dL Normal 11.7-15.5 [facility] Comment on above: Performed By: #### 6 399 #### [facility] [place] [address] Blister Pack Operator: Aaron Barnes MD Lymphocytes (Bld) [#/Vol] 1.493 10*3/uL Normal 850-3900 [facility] Comment on above: Performed By: #### 6 399 #### [facility] [place] [address] Blister Pack Operator: Aaron Barnes MD Lymphocytes/100 WBC (Bld) 23.7 % Normal [facility] Comment on above: Performed By: #### 6 399 #### [facility] [place] [address] Blister Pack Operator: Aaron Barnes MD MCH (RBC) [Entitic mass] 35.1 pg High 27.0-33.0 [facility] Comment on above: Performed By: #### 6 399 #### [facility] [place] [address] Blister Pack Operator: Aaron Barnes MD MCHC (RBC) [Mass/Vol] 35.6 g/dL Normal 32.0-36.[address] [facility] Comment on above: Result Comment: For adults, a slight decrease in the calculated MCHC value (in the range of 30 to 32 g/dL) is most likely not clinically significant; however, it should be interpreted with caution in correlation with other red cell parameters and the patient's clinical condition. Performed By: #### 6 399 #### [facility] [place] [address] Blister Pack Operator: Aaron Barnes MD MCV (RBC) [Entitic vol] 98.6 fL Normal 80.0-100.0 [facility] Comment on above: Performed By: #### 6 399 #### [facility] [place] [address] Blister Pack Operator: Aaron Barnes MD Monocytes (Bld) [#/Vol] 0.491 10*3/uL Normal 200-950 [facility] Comment on above: Performed By: #### 6 399 #### [facility] [place] [address] [employer] Operator: Aaron Barnes MD Monocytes/100 WBC (Bld) 7.8 % Normal [facility] Comment on above: Performed By: #### 6 399 #### [facility] [place] [address] [employer]ister [employer] Operator: Aaron Barnes MD Neutrophils (Bld) [#/Vol] 4.152 10*3/uL Normal 5759-6251 [facility] Comment on above: Performed By: #### 6 399 #### [facility] of [address], [address] [place] [address] Blister Pack Operator: Aaron Barnes MD Neutrophils/100 WBC (Bld) 65.9 % Normal [facility] Comment on above: Performed By: #### 6 399 #### [facility] of [address], [address] [place] [address] Blister Pack Operator: Aaron Barnes MD Platelet mean volume (Bld) [Entitic vol] 11.7 fL Normal 7.5-12.5 [facility] Comment on above: Performed By: #### 6 399 #### [facility] of [address], [address] [place] [address] [employer]ister [employer] Operator: Aaron Barnes MD Platelets (Bld) [#/Vol] 212 10*3/uL Normal 140-400 [facility] Comment on above: Performed By: #### 6 399 #### [facility] of [address], [address] [place] [address] Blister Pack Operator: Aaron Barnes MD RBC (Bld) [#/Vol] 4.16 10*6/uL Normal 3.80-5.10 [facility] Comment on above: Performed By: #### 6 399 #### [facility] of [address], [address] [place] [address] Blister Pack Operator: Aaron Barnes MD WBC (Bld) [#/Vol] 6.3 10*3/uL Normal 3.8-10.8 [facility] Comment on above: Performed By: #### 6 399 #### [facility] of [address], [address] [place] [address] Blister Pack Operator: Aaron Barnes MD [facility] 08-13-2024 Albumin [Mass/Vol] 4.5 g/dL Normal 3.6-5.1 [facility] Comment on above: Performed By: #### 6 399 #### [facility] [place] [address] Blister Pack Operator: Aaron Barnes MD Albumin/Globulin [Mass ratio] 2.4 {ratio} Normal 1.0-2.5 [facility] Comment on above: Performed By: #### 6 399 #### [facility] of [address], [address] [place] [address] Blister [employer] Operator: Aaron Barnes MD ALP [Catalytic activity/Vol] 57 U/L Normal 37-153 [facility] Comment on above: Performed By: #### 6 399 #### [facility] of [address], [address] [place] [address] Blister Pack Operator: Aaron Barnes MD ALT [Catalytic activity/Vol] 14 U/L Normal 6-29 [facility] Comment on above: Performed By: #### 6 399 #### [facility] [place] [address] Blister [employer] Operator: Aaron Barnes MD AST [Catalytic activity/Vol] 16 U/L Normal 10-35 [facility] Comment on above: Performed By: #### 6 399 #### [facility] of [address], [address] [place] [address] Blister Pack Operator: Aaron Barnes MD Bilirubin [Mass/Vol] 0.6 mg/dL Normal 0.2-1.2 [facility] Comment on above: Performed By: #### 6 399 #### [facility] [place] [address] Blister [employer] Operator: Aaron Barnes MD BUN/CREATININE RATIO SEE NOTE: Normal 6-22 [facility] Comment on above: Result Comment: Not Reported: BUN and Creatinine are within reference range. Performed By: #### 6 399 #### [facility] of [address], [address] [place] [address] Blister Pack Operator: Aaron Barnes MD Calcium [Mass/Vol] 10.1 mg/dL Normal 8.6-10.4 [facility] Comment on above: Performed By: #### 6 399 #### [facility] [place] [address] Blister [employer] Operator: Aaron Barnes MD Chloride [Moles/Vol] 101 mmol/L Normal 98-110 [facility] Comment on above: Performed By: #### 6 399 #### [facility] [place] [address] Blister Pack Operator: Aaron Barnes MD CO2 [Moles/Vol] 28 mmol/L Normal 20-32 [facility] Comment on above: Performed By: #### 6 399 #### [facility] [place] [address] Blister Pack Operator: Aaron Barnes MD Creatinine [Mass/Vol] 0.84 mg/dL Normal 0.60-1.[address] [facility] Comment on above: Performed By: #### 6 399 #### [facility] [place] [address] Blister Pack Operator: Aaron Barnes MD GFR/1.73 sq M.predicted among non-blacks MDRD (S/P/Bld) [Vol rate/Area] 72 mL/min/{1.73_m2} Normal > OR = 60 [facility] Comment on above: Performed By: #### 6 399 #### [facility] [place] [address] Blister Pack Operator: Aaron Barnes MD Globulin (S) [Mass/Vol] 1.9 g/dL Normal 1.9-3.7 [facility] Comment on above: Performed By: #### 6 399 #### [facility] [place] [address] Blister Pack Operator: Aaron Barnes MD Glucose [Mass/Vol] 92 mg/dL Normal 65-99 [facility] Comment on above: Result Comment: Fasting reference interval Performed By: #### 6 399 #### [facility] [place] [address] Blister Pack Operator: Aaron Barnes MD Potassium [Moles/Vol] 3.8 mmol/L Normal 3.5-5.[address] [facility] Comment on above: Performed By: #### 6 399 #### [facility] of [address], [address] [place] [address] Blister Pack Operator: Aaron Barnes MD Protein [Mass/Vol] 6.4 g/dL Normal 6.1-8.1 [facility] Comment on above: Performed By: #### 6 399 #### [facility] [place] [address] Blister Pack Operator: Aaron Barnes MD Sodium [Moles/Vol] 141 mmol/L Normal 135-146 [facility] Comment on above: Performed By: #### 6 399 #### [facility] [place] [address] Blister Pack Operator: Aaron Barnes MD Urea nitrogen [Mass/Vol] 19 mg/dL Normal 7-25 [facility] Comment on above: Performed By: #### 6 399 #### [facility] [place] [address] Blister Pack Operator: Aaron Barnes MD COMPREHENSIVE METABOLIC PANE [facility] 07-13-2024 Albumin [Mass/Vol] 4.4 g/dL Normal 3.6-5.1 [facility] Comment on above: Performed By: #### 1 0231, 6060, 496 #### [facility] [place] [address] Blister Pack Operator: Aaron Barnes MD Albumin/Globulin [Mass ratio] 2.2 {ratio} Normal 1.0-2.5 [facility] Comment on above: Performed By: #### 1 0231, 1124, 496 #### [facility] [place] [address] Blister Pack Operator: Aaron Barnes MD ALP [Catalytic activity/Vol] 57 U/L Normal 37-153 [facility] Comment on above: Performed By: #### 1 0231, 2266, 496 #### [facility] [place] [address] Blister Pack Operator: Aaron Barnes MD ALT [Catalytic activity/Vol] 12 U/L Normal 6-29 [facility] Comment on above: Performed By: #### 1 0231, 0944, 496 #### [facility] [place] [address] Blister Pack Operator: Aaron Barnes MD AST [Catalytic activity/Vol] 15 U/L Normal 10-35 [facility] Comment on above: Performed By: #### 1 0231, 7444, 496 #### [facility] [place] [address] Blister Pack Operator: Aaron Barnes MD Bilirubin [Mass/Vol] 0.7 mg/dL Normal 0.2-1.2 [facility] Comment on above: Performed By: #### 1 023, 2044, 496 #### [facility] [place] [address] Blister Pack Operator: Aaron Barnes MD BUN/CREATININE RATIO SEE NOTE: Normal 6-22 [facility] Comment on above: Result Comment: Not Reported: BUN and Creatinine are within reference range. Performed By: #### 1 023, 7444, 496 #### [facility] [place] [address] Blister [employer] Operator: Aaron Barnes MD Calcium [Mass/Vol] 9.3 mg/dL Normal 8.6-10.4 [facility] Comment on above: Performed By: #### 1 023, 7444, 496 #### [facility] [place] [address] Blister [employer] Operator: Aaron Barnes MD Chloride [Moles/Vol] 99 mmol/L Normal 98-110 [facility] Comment on above: Performed By: #### 1 0231, 1218, 496 #### [facility] [place] [address] Blister Pack Operator: Aaron Branes MD CO2 [Moles/Vol] 27 mmol/L Normal 20-32 [facility] Comment on above: Performed By: #### 1 023, 6594, 496 #### [facility] [place] [address] Blister Pack Operator: Aaron Barnes MD Creatinine [Mass/Vol] 0.82 mg/dL Normal 0.60-1.[address] [facility] Comment on above: Performed By: #### 1 0231, 7444, 496 #### [facility] [place] [address] Blister Pack Operator: Aaron Barnes MD GFR/1.73 sq M.predicted among non-blacks MDRD (S/P/Bld) [Vol rate/Area] 74 mL/min/{1.73_m2} Normal > OR = 60 [facility] Comment on above: Performed By: #### 1 0231, 9944, 496 #### [facility] [place] [address] Blister [employer] Operator: Aaron Barnes MD Globulin (S) [Mass/Vol] 2.0 g/dL Normal 1.9-3.7 [facility] Comment on above: Performed By: #### 1 0231, 7451, 496 #### [facility] [place] [address] Blister Pack Operator: Aaron Barnes MD Glucose [Mass/Vol] 89 mg/dL Normal 65-99 [facility] Comment on above: Result Comment: Fasting reference interval Performed By: #### 1 0231, 2944, 496 #### [facility] [place] [address] Blister Pack Operator: Aaron Barnes MD Potassium [Moles/Vol] 3.2 mmol/L Low 3.5-5.[address] [facility] Comment on above: Performed By: #### 1 0231, 0164, 496 #### [facility] [place] [address] Blister [employer] Operator: Aaron Barnes MD Protein [Mass/Vol] 6.4 g/dL Normal 6.1-8.1 [facility] Comment on above: Performed By: #### 1 0231, 7444, 496 #### [facility] [address], [address] [place] [address] Blister Pack Operator: Aaron Barnes MD Sodium [Moles/Vol] 137 mmol/L Normal 135-146 [facility] Comment on above: Performed By: #### 1 0231, 7444, 496 #### [facility] [address], [address] [place] [address] Blister Pack Operator: Aaron Barnes MD Urea nitrogen [Mass/Vol] 20 mg/dL Normal 7-25 [facility] Comment on above: Performed By: #### 1 0231, 7444, 496 #### [facility] [address], [address] [place] [address] Blister Pack Operator: Aaron Barnes MD HEMOGLOBIN A1con 07-13-2024 HEMOGLOBIN A1c 5.4 % of total Hgb Normal <5.7 [facility] Comment on above: Result Comment: For the purpose of screening for the presence of diabetes: <5.7% Consistent with the absence of diabetes 5.7-6.4% Consistent with increased risk for diabetes (prediabetes) > or =6.5% Consistent with diabetes This assay result is consistent with a decreased risk of diabetes. Currently, no consensus exists regarding use of hemoglobin A1c for diagnosis of diabetes in children. According to [place] [employer] (ADA) guidelines, hemoglobin A1c <7.0% represents optimal control in non- diabetic patients. Different metrics may apply to specific patient populations. Standards of Medical Care in Diabetes(ADA). This test was performed on the [employer] darcy c503 platform. Effective 10/06/23, a change in test platforms from the [employer] to the [employer] darcy c503 may have shifted HbA1c results compared to historical results. Based on laboratory validation testing conducted at [facility], the [employer]ot platform relative to the Handy platform had an average increase in HbA1c value of < or = 0.3%. This difference is within accepted variability established by the National Glycohemoglobin Standardization Program. Note that not all individuals will have had a shift in their results and direct comparisons between historical and current results for testing conducted on different platforms is not recommended. Performed By: #### 1 0231, 7444, 496 #### [facility] [place] [address] Blister Pack Operator: Aaron Barnes MD THYROID PANEL WITH TSHon FREE T4 INDEX (T7) 2.6 Normal 1.4-3.8 [facility] Comment on above: Performed By: #### 1 0231, 7444, 496 #### [facility] [place] [address] Bl[employer] Operator: Aaron Barnes MD T3 UPTAKE 28 % Normal 22-35 [facility] Comment on above: Performed By: #### 1 0231, 7444, 496 #### [facility] [place] [address] [employer] Operator: Aaron Barnes MD T4 [Mass/Vol] 9.2 ug/dL Normal 5.1-11.9 [facility] Comment on above: Performed By: #### 1 0231, 7444, 496 #### [facility] [place] [address] [employer] Operator: Aaron Barnes MD TSH Qn 2.63 m[IU]/L Normal 0.40-4.50 [facility] Comment on above: Performed By: #### 1 0231, 7444, 496 #### [facility] [place] [address] Blister [employer] Operator: Aaron Barnes MD COMPREHENSIVE METABOLIC PANE [facility] 06-16-2024 Albumin [Mass/Vol] 4.4 g/dL Normal 3.6-5.1 [facility] Comment on above: Performed By: #### 5 8984, 09876 #### [facility] [place] [address] Bl[employer] Operator: Aaron Barnes MD Albumin/Globulin [Mass ratio] 2.2 {ratio} Normal 1.0-2.5 [facility] Comment on above: Performed By: #### 5 8984, 93174 #### [facility] of [address], [address] [place] [address] Blister Pack Operator: Aaron Barnes MD ALP [Catalytic activity/Vol] 50 U/L Normal 37-153 [facility] Comment on above: Performed By: #### 5 8984, 73995 #### [facility] of [address], [address] [place] [address] Blister Pack Operator: Aaron Barnes MD ALT [Catalytic activity/Vol] 13 U/L Normal 6-29 [facility] Comment on above: Performed By: #### 5 8984, 21172 #### [facility] of [address], [address] [place] [address] Blister Pack Operator: Aaron Barnes MD AST [Catalytic activity/Vol] 17 U/L Normal 10-35 [facility] Comment on above: Performed By: #### 5 8984, 87336 #### [facility] of [address], [address] [place] [address] Blister Pack Operator: Aaron Barnes MD Bilirubin [Mass/Vol] 0.6 mg/dL Normal 0.2-1.2 [facility] Comment on above: Performed By: #### 5 8984, 50974 #### [facility] [place] [address] Blister Pack Operator: Aaron Barnes MD Calcium [Mass/Vol] 9.4 mg/dL Normal 8.6-10.4 [facility] Comment on above: Performed By: #### 5 8984, 40885 #### [facility] [address], [address] [place] [address] [employer]ister Pack Operator: Aaron Barnes MD Chloride [Moles/Vol] 101 mmol/L Normal 98-110 [facility] Comment on above: Performed By: #### 5 8984, 15245 #### [facility] of [address], [address] [place] [address] Blister Pack Operator: Aaron Barnes MD CO2 [Moles/Vol] 26 mmol/L Normal 20-32 [facility] Comment on above: Performed By: #### 5 8984, 60358 #### [facility] [address], [address] [place] [address] Blister Pack Operator: Aaron Barnes MD Creatinine [Mass/Vol] 1.15 mg/dL High 0.60-1.[address] [facility] Comment on above: Performed By: #### 5 8984, 81012 #### [facility] [address], [address] [place] [address] Blister Pack Operator: Aaron Barnes MD GFR/1.73 sq M.predicted among non-blacks MDRD (S/P/Bld) [Vol rate/Area] 50 mL/min/{1.73_m2} Low > OR = 60 [facility] Comment on above: Performed By: #### 5 8984, 91037 #### [facility] [address], [address] [place] [address] Blister Pack Operator: Aaron Barnes MD Globulin (S) [Mass/Vol] 2.0 g/dL Normal 1.9-3.7 [facility] Comment on above: Performed By: #### 5 8984, 88155 #### [facility] [address], [address] [place] [address] Blister Pack Operator: Aaron Barnes MD Glucose [Mass/Vol] 113 mg/dL High 65-99 [facility] Comment on above: Result Comment: Fasting reference interval For someone without known diabetes, a glucose value between 100 and 125 mg/dL is consistent with prediabetes and should be confirmed with a follow-up test. Performed By: #### 5 8984, 30201 #### [facility] [address], [address] [place] [address] Blister Pack Operator: Aaron Barnes MD Potassium [Moles/Vol] 3.4 mmol/L Low 3.5-5.[address] [facility] Comment on above: Performed By: #### 5 8984, 11744 #### [facility] [address], [address] [place] [address] Blister Pack Operator: Aaron Barnes MD Protein [Mass/Vol] 6.4 g/dL Normal 6.1-8.1 [facility] Comment on above: Performed By: #### 5 8984, 73945 #### [facility] [place] [address] Blister Pack Operator: Aaron Barnes MD Sodium [Moles/Vol] 139 mmol/L Normal 135-146 [facility] Comment on above: Performed By: #### 5 8984, 64082 #### [facility] [place] [address] Blister Pack Operator: Aaron Barnes MD Urea nitrogen [Mass/Vol] 26 mg/dL High 7-25 [facility] Comment on above: Performed By: #### 5 8984, 73161 #### [facility] [place] [address] Blister Pack Operator: Aaron Barnes MD Urea nitrogen/Creatinine [Mass ratio] 23 mg/mg High 6-22 [facility] Comment on above: Performed By: #### 5 8984, 13024 #### [facility] [place] [address] Blister Pack Operator: Aaron Barnes MD TSH+FREE T4on 06-16-2024 Free T4 [Mass/Vol] 1.1 ng/dL Normal 0.8-1.8 [facility] Comment on above: Performed By: #### 5 8984, 27654 #### [facility] [place] [address] Blister Pack Operator: Aaron Barnes MD TSH Qn 2.28 m[IU]/L Normal 0.40-4.50 [facility] Comment on above: Performed By: #### 5 8984, 60398 #### [facility] [place] [address] Blister Pack Operator: [facility] HNO ID: [id number] Author: COORDINATOR, MAMMOGRAPHY, ? Service: ? Author Type: Physician Type: Letter Filed: 02/14/2024 08:27 Note Text: February 16, 2024 PID: [id number] Dahlia Parsons [address] [place] [id number] Dear Ms. Elyert, We are pleased to inform you that the results of your recent breast imaging exam on 02/12/2024 are normal. Your mammogram demonstrates that you have dense breast tissue, which could hide abnormalities. Dense breast tissue, in and of itself, is a relatively common condition. Therefore, this information is not provided to cause undue concern; rather, it is to raise your awareness and promote discussion with your health care provider regarding the presence of dense breast tissue in addition to other risk factors. Early detection of cancer is very important. We also understand recommendations regarding breast cancer screening are controversial. Please discuss with your primary care provider which strategy is best for you and whether a mammogram is right for you. Your imaging studies and report will be kept on file at [facility] as part of your permanent medical record and are available for your continuing care. Thank you for allowing us to help in meeting your health care needs. Sincerely, Dr. 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 Please ask patient if pcp might take over gabapentin? I can rx but needs to been once yearly. I can rx until appt if she needs to see me if pcp can't take over mayito Normal [facility] MG Breast Screeningon 2020 * * *Final Report* * * DATE OF EXAM: Oct 02 2021 11:15AM [facility] SCREENING / PROCEDURE REASON: screening mammogram * * * * Physician Interpretation * * * * RESULT: #[id number] - JAMSHID SCREENING BILATERAL DIGITAL SCREENING MAMMOGRAM WITH CAD: 10/02/2021 HISTORY: Screening Mammogram / Screening Mammogram-Patient reports NO symptoms. RESULT: TECHNIQUE: The study was acquired using full field digital technology and interpreted from soft copy. Current study was also evaluated with a Computer Aided Detection (CAD). Comparison is made to exams dated: 09/20/2020 mammogram, 09/27/2019 mammogram, 09/25/2018 mammogram, 07/11/2017 mammogram, and 05/17/2016 mammogram - [facility]. The tissue of both breasts is heterogeneously dense. This may lower the sensitivity of mammography. There is an asymmetry in the right breast upper region seen on the mediolateral oblique view only. No other significant masses, calcifications, or other findings are seen in either breast. DIVISION OF RADIOLOGY Provider, [facility] - 10/02/2021 * * *Final Report* * * DATE OF EXAM: Oct 02 2021 11:15AM [facility] SCREENING / PROCEDURE REASON: screening mammogram * * * * Physician Interpretation * * * * RESULT: #[id number] - JAMSHID SCREENING BILATERAL DIGITAL SCREENING MAMMOGRAM WITH CAD: 10/02/2021 HISTORY: Screening Mammogram / Screening Mammogram-Patient reports NO symptoms. RESULT: TECHNIQUE: The study was acquired using full field digital technology and interpreted from soft copy. Current study was also evaluated with a Computer Aided Detection (CAD). Comparison is made to exams dated: 09/20/2020 mammogram, 09/27/2019 mammogram, 09/25/2018 mammogram, 07/11/2017 mammogram, and 05/17/2016 mammogram - [facility]. The tissue of both breasts is heterogeneously dense. This may lower the sensitivity of mammography. There is an asymmetry in the right breast upper region seen on the mediolateral oblique view only. No other significant masses, calcifications, or other findings are seen in either breast. IMPRESSION IMPRESSION: INCOMPLETE: NEEDS ADDITIONAL IMAGING EVALUATION The asymmetry in the right breast is indeterminate. Additional views are recommended. Hilda Timmons M.D. fa/penrad:10/02/2021 11:44:34 copy to: RIC FUENTES, ph: [phone] Asset Management Lead(s): RT Kathy(R)(M), [facility] letter sent: Additional Imaging Needed Mammogram BI-RADS: 0 Incomplete: needs additional imaging evaluation If this report indicates you need additional imaging, and it has NOT yet been performed, please call , to schedule. We sincerely thank you for choosing the [facility] for your breast imaging needs. Multiple national specialty organizations have released breast cancer screening guidelines for women at average risk for developing breast cancer - guidelines that are based on both evidence and opinion, yet differ on when to start and how often to screen for breast cancer. With representation from Breast Imaging, Internal Medicine, Women's Health, Family Medicine, and Medical/Surgical Oncology, the [facility] has carefully reviewed the data and reached the following consensus: 1) All women should engage in shared decision-making with their providers to decide when to start and how often to screen; 2) All women should have the opportunity to start screening mammography at age 40; 3) For women ages 45-55, we recommend annual screening mammograms; 4) For women ages 55 and over, we support both the transition from an annual to a biennial interval if this aligns more with patient's values and preferences, or continuation with annual screening; 5) All women should discuss with their providers when to stop screening mammograms. Ticket Maker: Lilli Transcribe Date/Time: Oct 02 2021 11:07A Dictated by: HILDA TIMMONS MD This examination was interpreted and the report reviewed and electronically signed by: HILDA TIMMONS MD on Oct 02 2021 11:44AM EST [facility] Radiology Study observation (narrative) [facility] MG Breast ScreeningOrdered B y: [facility] Provider on 10-02-2021 [facility] Clinical Summary: Data Submi tted by Patient in [place] 08-16-2019 #DEP CHLDRN No [facility] Work Phone: 3+ETOHDAILY less than 1 drink pe r day [facility] Work Phone: ALLERGY COMM Cipro [facility] ic [facility] Work Phone: ALLSPECINS Allergic to most anti-biotics [facility] Work Phone: BROTHERS PMH Diabetes - insulin dependent, Vascular disease [facility] Work Phone: Cholesterol [Mass/Vol] Arthritis, High cholesterol, Hyperthyroidism [facility] Work Phone: DEATHCAU DAD Kidney disease [facility] Work Phone: DEATHCAU MOM Dementia [facility] Work Phone: DEP ALG LIST Penicillin,Tetracycl i ne,I don't have any food allergies.,Wool [facility] Work Phone: DEP DAD PMH Diabetes - non-insulin dependent, Kidney disease, Stroke/TIA [facility] Work Phone: DEP DRUG USE No [facility] Work Phone: 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 [facility] Work Phone: DEP ETOH USE Yes [facility] Work Phone: DEP EXERCISE Yes [facility] Work Phone: DEP EXERTYP walking [facility] Work Phone: DEP MED LIST Urelle 0.12 mg;81 mg;10.8 mg;32.4 mg;40.8 mg Tab, 1 times per day,Ambien 10 mg Tab, 1 times per day,Methimazole 10 mg Tab, 2 times per day,Spironolactone 50 mg Tab, 2 times per day,Pravastatin 20 mg Tab, 3 times per day [facility] Work Phone: DEP MOM PMH Alzheimer, High bloo d pressure, Kidney disease, Stroke/TIA [facility] Work Phone: DEP SH CSMO never smoker [facility] Work Phone: DEP SH MAST [facility] Work Phone: 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 [facility] Work Phone: DEP SURGERY Appendectomy, Cataract surgery, Foot surgery, Gallbladder surgery, Hysterectomy, Shoulder surgery other, Tonsillectomy [facility] Work Phone: DEPADDLPROB Interstitial [facility]stitis [facility] Work Phone: DEPEXER FREQ 3 days per week [facility] Work Phone: ETOHPERFRM beer, wine, liquor Roseanna [facility] Work Phone: FATHER A/D [facility] Work Phone: [id number] Ranch w/basement [facility] Work Phone: MEDICCOMMNTS Alvin E Fish oil [employer] fexofenadine HCL 180mg [facility] Work Phone: MOTHER A/D [facility] Work Phone: RLATNSHPINFR Self [facility] Work Phone: SISTERS PMH Diabetes - insulin dependent, Heart disease, High blood pressure, Obesity [facility] Work Phone: SWHOUTYPE house [facility] Work Phone: Clinical Summary: HMSPatient IDon 08-16-2019 [facility] Work Phone: Vital Signs Date Time Vital Sign Value Performing Clinician Facility 06-08-2025 08:44-0400 Body height 172.[address] Ric Fuentes MD Work Phone: [facility] 06-08-2025 08:44-0400 Body mass index (BMI) [Ratio] 21.4 kg/m2 Dr. Ric Fuentes MD Work Phone: [facility] 06-08-2025 08:44-0400 Body weight 63.[address] Ric Fuentes MD Work Phone: [facility] 06-08-2025 08:44-0400 Diastolic blood pressure 80 mm[Hg] Dr. Ric Fuentes MD Work Phone: [facility] 06-08-2025 08:44-0400 Heart rate 82 /min Dr. Ric Fuentes MD Work Phone: [facility] 06-08-2025 08:44-0400 Systolic blood pressure 136 mm[Hg] Dr. Ric Fuentes MD Work Phone: [facility] 05-14-2024 10:34-0400 Diastolic Blood Pressure Non-Invasive 51 mm[Hg] LIBRA SUPPAN DPM [facility] 05-14-2024 10:34-0400 Heart rate 66 /min LIBRA SUPPAN DPM [facility] 05-14-2024 10:34-0400 Respiratory rate 15 /min LIBRA SUPPAN DPM [facility] 05-14-2024 10:34-0400 Systolic Blood Pressure Non-Invasive 129 mm[Hg] LIBRA SUPPAN DPM [facility] 05-14-2024 10:19-0400 Diastolic Blood Pressure Non-Invasive 46 mm[Hg] LIBRA SUPPAN DPM [facility] 05-14-2024 10:19-0400 Heart rate 67 /min LIBRA SUPPAN DPM [facility] 05-14-2024 10:19-0400 Respiratory rate 15 /min LIBRA SUPPAN DPM [facility] 05-14-2024 10:19-0400 Systolic Blood Pressure Non-Invasive 129 mm[Hg] LIBRA SUPPAN DPM [facility] 05-14-2024 10:06-0400 Diastolic Blood Pressure Non-Invasive 51 mm[Hg] LIBRA SUPPAN DPM [facility] 05-14-2024 10:06-0400 Heart rate 68 /min LIBRA SUPPAN DPM [facility] 05-14-2024 10:06-0400 Respiratory rate 18 /min LIBRA SUPPAN DPM [facility] 05-14-2024 10:06-0400 Systolic Blood Pressure Non-Invasive 100 mm[Hg] LIBRA SUPPAN DPM [facility] 05-14-2024 09:45-0400 Respiratory Rate - Anes 0 br/min LIBRA SUPPAN DPM [facility] 05-14-2024 09:42-0400 Body temperature 96.8 [degF] LIBRA SUPPAN DPM [facility] 05-14-2024 09:40-0400 Respiratory Rate - Anes 15 br/min LIBRA SUPPAN DPM [facility] 05-14-2024 09:35-0400 Respiratory Rate - Anes 15 br/min LIBRA SUPPAN DPM [facility] 05-14-2024 08:20-0400 Body height 170 cm LIBRA SUPPAN DPM [facility] 05-14-2024 08:20-0400 Body temperature 98.06 [degF] LIBRA SUPPAN DPM [facility] 05-14-2024 08:20-0400 Body weight 63.6 kg LIBRA SUPPAN DPM [facility] 05-14-2024 08:20-0400 Heart rate 70 /min LIBRA SUPPAN DPM [facility] NEGATED: Highlighted [id number] 10:40-0400 BMI (Body Mass Index) 25.33 kg/m2 Mecca Pascual [facility] Work Phone: NEGATED: Highlighted [id number] 10:40-0400 Body weight 75.3 kg Mecca Pascual [facility] Work Phone: NEGATED: Highlighted [id number] 10:40-0400 Body weight 75 kg Mecca Pascual [facility] Work Phone: NEGATED: Highlighted [id number] 10:40-0400 BP Diastolic 73 mm[Hg] Mecca Santos [facility] Work Phone: NEGATED: Highlighted [id number] 10:40-0400 BP Systolic 121 mm[Hg] Mecca Pascual [facility] Work Phone: NEGATED: Highlighted [id number] 10:40-0400 Height 172.72 cm Mecca Pascual [facility] Work Phone: NEGATED: Highlighted [id number] 10:40-0400 Height 173 cm Mecca Pascual [facility] Work Phone: NEGATED: Highlighted [id number] 10:40-0400 Pulse (Heart Rate) 70 /min Mecca Santos [facility] Work Phone: Encounters Encounter Date Encounter Type Care Provider Facility Start: 09-01-2025 ambulatory Ric Fuentes Facili ty:[facility] Start: 08-30-2025 Encounter for other preprocedural examination Leatha Darby [facility] Start: 08-22-2025 End: 08-22-2025 ambulatory Ric Fuentes Facility:[facility] Start: 07-25-2025 ambulatory LUDWIN DEJESUS Faci lity:[facility] Start: 06-08-2025 End: 06-08-[address] Leatha Darby MD -[facility] Work Phone: Start: 06-08-2025 End: 06-08-[address] Ric Fuentes MD Work Phone: -[facility] Start: 05-27-2025 ambulatory RIC FUENTES Faci lity:[facility] Start: 05-27-2025 End: 05-27-2025 Subsequent hospital visit by physician Screen/Diagnostic Mammo [facility] Work Phone: Mammography Comment on above: Encounter for screen ing mammogram for malignant neoplasm of breast [Z12.31] Start: 04-19-2025 Non-patient / Non-visit Dr. Leatha sorenson MD -[facility] Work Phone: Start: 09-10-2024 End: 09-10-2024 Telephone encounter Olivia Ramos RN Cardiology Lab Comment on above: Reminder Call Start: 08-25-2024 ambulatory RIC John lity:[facility] Start: 08-25-2024 End: 08-25-2024 Subsequent hospital visit by physician Echo [facility] Work Phone: Cardiology Lab Comment on above: Chest pain, unspecif ied [R07.9] Start: 05-14-2024 End: 05-14-2024 ambulatory LIBRA N SUPPAN DPM Facility:B Start: 05-14-2024 End: 05-14-2024 SAME DAY STAY LIBRA N SUPPAN DPM [facility] Start: 05-05-2024 End: 05-05-2024 ambulatory LIBRA N SUPPAN DPM Facility:[facility] Start: 02-14-2024 Documentation procedure Mammog jocelyne Coordinator [facility] Department Start: 02-14-2024 Letter encounter Mammography Coordinator [facility] Start: 02-12-2024 End: 02-12-2024 Subsequent hospital visit by physician Screen/Diagnostic Mammo [facility] Work Phone: Mammography Comment on above: Encounter for screen ing mammogram for malignant neoplasm of breast [Z12.31] Start: 01-11-2024 Letter encounter [facility] Work Phone: Start: 01-13-2023 Letter encounter Inna blake MD Work Phone: [facility] Start: 10-08-2022 Letter encounter Inna blake MD Work Phone: [facility] Start: 10-03-2022 End: 10-03-2022 Subsequent hospital visit by physician Screen/Diagnostic Mammo [facility] Work Phone: Mammography Comment on above: z12.31 Start: 07-09-2022 Letter encounter Inna blake MD Work Phone: [facility] Start: 10-02-2021 End: 10-02-2021 Subsequent hospital visit by physician Screen Mammo [facility] Work Phone: Radiology Comment on above: Encounter for screen ing mammogram for malignant neoplasm of breast [Z12.31] Start: 08-16-2019 End: 08-16-2019 Patient encounter procedure Ruiz Goodman MD Work Phone: [facility] Work Phone: Procedures Date Procedure Procedure Detail Performing Clinician Start: 10-02-2021 End: 10-02-2021 Mammography [facility] Provider Start: 08-16-2019 End: 08-16-2019 Blood pressure within normal parameters - no follow-up required Ruiz Goodman MD Work Phone: Start: 08-16-2019 End: 08-16-2019 BMI documented as above normal parameters - follow-up documented Ruiz Goodman MD Work Phone: Start: 08-16-2019 End: 08-16-2019 Documentation of current medications Ruiz Goodman MD Work Phone: Start: 08-16-2019 End: 08-16-2019 Injection - betamethasone acetate 3 mg and betamethasone sodium phosphate 3 mg Ruiz Goodman MD Work Phone: Start: 08-16-2019 End: 08-16-2019 Injection 1 tendon sheath/ligament aponeurosis Ruiz Goodman MD Work Phone: Start: 08-16-2019 End: 08-16-2019 Pain assessment documented as positive - follow-up documented Ruiz Goodman MD Work Phone: Start: 08-16-2019 End: 08-16-2019 Radex wrist complete minimum 3 views Ruiz Goodman MD Work Phone: Start: 08-16-2019 End: 08-16-2019 Tobacco non-user Ruiz Goodman MD Work Phone: Appendectomy LIBRA SUPPAN DP M Excision of cyst LIBRA SUPPA N DPM Comment on above: right thumb Hysterectomy LIBRA SUPPAN DP M Instillation of bladder JASO N SUPPAN DPM Tonsillectomy LIBRA SUPPAN D PM NEGATED: Highlighted rowStart: 08-16-2019 End: 08-16-2019 Documentation of current medications Mecca Pascual Plan of Treatment Date Care Activity Detail Author Start: 06-20-2025 Influenza vaccination Influenza Vacc ine (#1) [facility] Start: 10-20-2024 Advance Directive Discussion Advance Directive Discussion [facility] Start: 10-20-2024 Medicare Advantage Annual Wellness Visit Medicare Advantage Annual Wellness Visit [facility] Start: 09-13-2024 Subsequent hospital visit by physician 09/13/2024 12:00 PM EST Hospital Encounter Cardiology Lab [address] [place] [address] Chest pain, unspecified [R07.9] Cardiology Lab Comment on above: Chest pain, unspecif ied [R07.9] Start: 06-20-2024 Covid-19 Vaccine ( season) Covid-19 Vaccine ( season) [facility] Start: 06-20-2024 Influenza vaccination Influenza Vacc ine (#1) [facility] Start: 03-27-2024 Diabetes Screening Diabetes Screenin g [facility] Start: 12-02-2023 COVID Vaccine 2022- 024 Additional Dose (65+ years) COVID Vaccine Additional Dose (65+ years) [facility] Start: 12-02-2023 Covid-19 Vaccine ( season) Covid-19 Vaccine ( season) [facility] Start: 10-20-2023 Advance Directive Discussion Advance Directive Discussion [facility] Start: 10-20-2023 Behavioral Health Screening Behavioral Health Screening [facility] Start: 10-17-2022 COVID-19 Vaccine (4 - Booster for Moderna series) COVID-19 Vaccine (4 - Booster for Moderna series) [facility] Start: 10-11-2022 Screening for malign ant neoplasm of breast [facility]amm[facility] Start: 10-02-2022 Mammography MAMMOGRAM [facility] Start: 08-12-2022 COVID-19 VACCINE (4 - Booster for Moderna series) COVID-19 VACCINE (4 - Booster for Moderna series) [facility] Start: 03-27-2022 Thyroid stimulating hormone measurement TSH [facility] Start: 10-20-2021 ADVANCE DIRECTIVE DISCUSSION ADVANCE DIRECTIVE DISCUSSION [facility] Start: 10-20-2021 DEPRESSION ASSESSMENT DEPRESSION ASS ESSMENT [facility] Start: 08-16-2019 End: 08-16-2019 Appointment Appointment [facility] Work Phone: Start: 06-29-2019 Tetanus vaccination Tetanus (T d or Tdap) Booster [facility] Start: 06-29-2019 Urine microalbumin profile DTaP,Tdap,Td Vaccine (2 - Td or Tdap) [facility] Start: 03-27-2017 DIABETES SCREEN DIABETES SCREEN [facility] Start: 06-20-2014 Annual wellness visit Annual W ellness Visit (G0438) [facility] Start: 2013 PNEUMOCOCCAL: 65+ (1 - PCV) PNEUMOCOCCAL: 65+ (1 - PCV) [facility] Start: 2013 Screening for osteoporosis Bone Densitometry [facility] Start: 2008 Hepatitis B (HBV) Vaccine (optional start 60+ years) Hepatitis B (HBV) Vaccine (optional start 60+ years) [facility] Start: 1998 Measurement of occul t blood in single stool specimen FIT [facility] Start: 1998 Screening for malign ant neoplasm of colon CRC Screening [facility] Start: 1998 SHINGRIX VACCINE (1 of 2) SHINGRIX VACCINE (1 of 2) [facility] Start: 1993 Cholesterol [Mass/volume] in Serum or Plasma Cholesterol [facility] Start: 1993 COLOGUARD (FIT-DNA) COLOGUARD (FIT-D NA) [facility] Start: 1993 Colonoscopy COLONOSCOPY [facility] Start: 1993 COLORECTAL CANCER SCREENING COLORECTAL CANCER SCREENING [facility] Start: [address] COLONOGRAPHY [facility] Start: 1993 FECAL OCCULT BLOOD FECAL OCCULT BLOO D [facility] Start: 1993 Lipid panel Lipid Screening [facility] Start: 1993 LIPID SCREEN LIPID SCREEN [facility] Start: 1993 Screening for malign ant neoplasm of colon [facility] Start: 1993 SIGMOIDOSCOPY SIGMOIDOSCOPY [facility] Start: 1967 Urine microalbumin profile DTAP,TDAP,TD (1 - Tdap) [facility] Start: 1966 Anxiety Screening Anxiety Screening [facility] Start: 1966 Depression Screening Depression Scre ening [facility] Start: 1966 Hepatitis C screening M [facility] Start: 1966 HEPATITIS C SCREENING HEPATITIS C SC SHELLI [facility] Start: 1948 Screening for malign ant neoplasm of colon Colonoscopy [facility] Immunizations Immunization Date Immunization Notes Care Provider Dru dove 07-16-2024 influenza virus vaccine, unspecified formulation Screen/Diagnostic Hosp Work Phone: [facility] 09-01-2023 Respiratory syncytia l virus (RSV), vaccine, recombinant, protein subunit RSV prefusion F, adjuvant reconstituted, 0.5 mL, preservative free (ORU=391) [facility] Work Phone: 08-01-2023 Influenza, seasonal vaccine, quadrivalent, adjuvanted, 0.5mL dose, preservative free (GBL=776) [facility] Work Phone: 08-01-2023 influenza virus vaccine, unspecified formulation Screen [facility] Work Phone: [facility] 06-19-2022 Influenza, injectabl e, high-dose seasonal, quadrivalent, 0.7 mL, preservative free ([id number]=819) Inna Pratt MD Work Phone: [facility] 06-17-2022 Pfizer Monovalent (1 2+ yrs) SARS-COV-2 (COVID-19) vaccine, mRNA, spike protein, LNP, pres. free, 30 mcg/0.3mL dose, moshe-sucrose (WIE=768) [facility] Work Phone: 07-08-2021 Influenza, injectabl e, high-dose seasonal, quadrivalent, 0.7 mL, preservative free (EDF=627) Inna Pratt MD Work Phone: [facility] 01-22-2021 zoster vaccine recombinant Inna Pratt MD Work Phone: [facility] 12-13-2020 Moderna (12+ yrs) COVID-19 vaccine, mRNA, spike protein, LNP, PF, 100 mcg/0.5 mL (IVS=719) Inna Pratt MD Work Phone: [facility] 11-15-2020 Moderna (12+ yrs) COVID-19 vaccine, mRNA, spike protein, LNP, PF, 100 mcg/0.5 mL (ZAS=362) Inna Pratt MD Work Phone: [facility] 09-12-2020 zoster vaccine recombinant Inna Pratt MD Work Phone: [facility] 06-30-2020 Influenza, injectabl e, high-dose seasonal, quadrivalent, 0.7 mL, preservative free (HUQ=184) Inna Pratt MD Work Phone: [facility] 06-30-2020 pneumococcal conjuga te vaccine, 13 valent Inna Pratt MD Work Phone: [facility] 06-27-2020 Influenza, injectabl e, high-dose seasonal, quadrivalent, 0.7 mL, preservative free (FUN=178) Inna Pratt MD Work Phone: [facility] 07-19-2019 influenza, injectabl e, quadrivalent, contains preservative Inna Pratt MD Work Phone: [facility] 09-04-2018 Influenza, injectabl e, Madin [place] Canine Kidney, quadrivalent with preservative Inna Pratt MD Work Phone: [facility] 08-04-2017 influenza, injectabl e, quadrivalent, contains preservative Inna Pratt MD Work Phone: [facility] 08-16-2015 influenza, injectabl e, quadrivalent, contains preservative Inna Pratt MD Work Phone: [facility] 07-26-2013 pneumococcal polysaccharide vaccine, 23 valent Inna Pratt MD Work Phone: [facility] 12-04-2012 zoster vaccine, live Inna chambers MD Work Phone: [facility] 11-20-2009 novel [id number], preservative-free, injectable Inna Pratt MD Work Phone: [facility] 08-02-2009 influenza, seasonal, injectable Inna Pratt MD Work Phone: [facility] 06-29-2009 tetanus toxoid, redu larry diphtheria toxoid, and acellular pertussis vaccine, adsorbed Inna Pratt MD Work Phone: [facility] 03-06-2000 hepatitis A vaccine, unspecified formulation Inna Pratt MD Work Phone: [facility] 04-25-1999 TD(adult) unspecifie d formulation Inna Pratt MD Work Phone: [facility] [facility] Payers Date Payer Category Payer Medicare [id number] 2025 Unknown [id number] 2025 Self-pay 2025 Unknown [id number] 2023 Medicare (Managed Care) [facility] PPO [id number] 2023 Private Health Insurance [id number] 2018 Unknown [id number] 2013 Medicare [id number] 1950 Unknown [id number] 1950 Unknown [id number] Medicare [id number] Unknown [id number] Unknown [id number] Unknown [id number] Social History Date Type Detail Facility Start: 08-16-2019 End: 08-16-2019 Assertion Unknown if ever smoked [facility] Work Phone: Start: 05-03-2020 End: 04-02-2022 Tobacco smoking status NHIS Never smoked tobacco [facility] Start: 05-03-2020 Tobacco use and exposure Smokeless tobacco non-user [facility] Start: 1950 Sex Assigned At Not on file [facility] Start: 03-27-2014 End: 06-03-2022 Alcohol intake Current drinker of alcohol (finding) [facility] Start: 06-03-2022 End: 05-27-2025 History of Social function [employer] Work Phone: Start: 06-03-2022 End: 05-27-2025 Tobacco use panel [employer] Work Phone: Start: 09-20-2012 National Score (1-100), lower number is lower risk Not on file [facility] Start: 1950 Sex Assigned At Female A [facility] Start: 09-02-2021 End: 10-02-2021 Exposure to SARS-CoV-2 (event) Not sure [facility] Medical Equipment Procedure Code Equipment Code Equipment Origin al Text Equipment Identifier Dates Cystoscopy, with botulinum toxin injection [id number],2ML FDA Start: 04-04-2022 Functional Status Date Assessment Result Facility 05-14-2024 Functional Status Repositions self [facility] 05-14-2024 Functional Status Maintained, More than 8 hours [facility] Mental Status Date Assessment Result Facility 05-14-2024 Mental Status Orientation Oriented x 4 [facility] 05-14-2024 Mental Status [facility] 05-14-2024 Mental Status [facility] Clinical Notes 10-02-2021 to 07-25-2025 Note Date & Type Note Facility 07-25-2025 Note HNO ID: [id number] Author: CALOS DUARTE CT Service: Radiology Author Type: Technologist Type: Progress Notes Filed: 07/25/2025 13:11 Note Text: Radiology Service Progress Note PATIENT NAME: Dahlia Parsons DATE OF SERVICE: July 25, 2025 TIME: 1:11 PM PATIENT IDENTITY VERIFICATION COMPLETED USING TWO (2) IDENTIFIERS: Name and Date of confirmed by patient verbally. FALL SCREENING: Has the patient had 2 falls in the last year or 1 fall with injury or currently using an Ambulatory Assistive Device (Walker, Cane, Wheelchair, Crutches, etc.)? No PATIENT GENDER DATA: Assigned female at . status: : No status: NO. PATIENT RELEVANT IMPLANT DATA REVIEWED: Not Applicable PATIENT PRESENTS WITH AN IMPLANTABLE OR ATTACHED HIDE AND SKIN PROCESSING WORKER: No RADIOLOGY DEPARTMENT: Bone Density PERIPHERAL IV DATA: Not applicable SIGNED BY: Mariah Rubin RT July 25, 2025 1:11 PM [facility] 06-08-2025 Progress note [facility] 06-08-2025 Progress note Note Date/Time June 08, 2025 9:08am [facility] [address], [address] [place] [address] OFFICE VISIT Date of Service: 06/08/25 MR#: [id number] Acct: [id number] Name: DAHLIA PARSONS Rep #: [id number] : 1950 Provider: Dr. Carolee Darby MD Age/Sex: 74/F Location: [facility] Status: Signed Intake Vital Signs 04/04/22 07:15 06/08/25 08:44 Height 5 ft 8 in 5 ft 8 in Weight: 141 lb BMI 21.4 BP 136/80 H Pulse 82 Intake Visit Reasons: check f/u ( back from [place]) Chief Complaint: follow up Tobacco Stemmer Required: No Accompanied by: Self Is patient in pain?: No Allergies Penicillins Allergy (Verified 06/08/25 08:41) Swelling Sulfa (Sulfonamide Antibiotics) Allergy (Verified 06/08/25 08:41) Upset Stomach CYCLINES Adverse Reaction (Uncoded 06/08/25 08:41) Upset Stomach Medications ?Medication ?Instructions ?Recorded ?Confirmed ?Type ascorbic acid (vitamin C) 500 mg 500 mg PO DAILY 04/0206/08/25 History tablet,extended release (Vitamin C ER) cholecalciferol (vitamin D3) 25 25 mcg PO DAILY 06/08/25 History mcg (1,000 unit) tablet (Vitamin D3) methenamine 81 mg-m.blue 10.8 1 tab PO BID 04/02/22 History mg-sod phos 40.8 mg-p.salicy-hyos tablet (Urelle) methimazole 10 mg tablet 5 mg PO QHS 04/02/22 5 History omega 6-kxu-dda-fish oil 1,000 mg 1 cap PO DAILY 04/0206/08/25 History (120 mg-180 mg) capsule (Fish Oil) pravastatin 20 mg tablet 20 mg PO QHS 04/02/22 History triamterene 37.5 1 tab PO BID 04/02/22 History mg-hydrochlorothiazide 25 mg tablet zolpidem 5 mg tablet (Ambien) 5 mg PO QHS 04/02/22 History estradiol 0.01% (0.1 mg/gram) 1 g vaginal 3XW 06/08/25 06/08/25 History vaginal cream ospemifene 60 mg tablet (Osphena) 60 mg PO QDAY #30 ta bs 06/08/25 06/08/25 Rx potassium chloride 10 mEq 10 meq PO QDAY 06/08/2505/21 History tablet,extended release(part/cryst) Have you fallen in the past year?: No Nurse's Note: 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 sensation of vaginal rawness all the time. ankle surgery 05/14/24 [facility] Medical History Vulvar atrophy Vaginal atrophy Mixed incontinence Nocturia Interstitial cystitis Cancer Alcohol use Thyroid disease Bladder disease High cholesterol History of Mohs micrographic surgery for skin cancer Non-smoker History of edema Surgical History Hx of appendectomy Hx of hysterectomy Hx of breast biopsy Social History Smoking Status: Never smoker HPI HPI Urology Chief Complaint: follow up Details: DAHLIA PARSONS, is a 74 F. She is here for medication follow up. She has been taking vitamin C, probiotics and Urelle for control of her interstitial cystitis and infection prevention. She is having increasing sensation of vaginal/vulvar rawness that is constant. She feels the incontinence and pads make it worse. The biggest issue is the stress incontinence. She failed Bulkamid in 2021. We discussed a midurethral sling and she is ready to schedule. She has not had any urinary tract infections since the last visit. She has not had any blood in the urine since the last visit. She has no new urologic concerns to discuss today. 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 ROS Const Constitutional: No chills, fatigue, fever(s), headache(s), night sweats, weakness, weight change, abnormal sleep pattern or change in appetite Eyes Eyes: No change in vision ENT ENT: No headache(s) or dry mouth Resp Respiratory: No cough, chest congestion, shortness of breath or wheezing Cardio Cardiology: Positive for other (No chest pain.); No shortness of breath, irregular heart rhythm or lightheadedness Gastro GI: Positive for other (No nausea.); No abdominal pain, change in bowel habits, constipation, diarrhea or vomiting Musc Musculoskeletal: No abnormal gait Skin Skin: No yellowing of the eye, lesions, itchy eyes, rash or skin ulcer Neuro Neurology: No abnormal gait, confusion, dizziness, weakness, headache(s) or memory loss Psych Psychiatric: No abnormal sleep pattern, No change in appetite, No confusion and No memory loss Endo Endocrine: No fatigue, increased thirst/drinking or weight change Aller/Imm Allergy/Immunologic: No itchy eyes or wheezing Wan/Lymp Hematologic/Lymphatic: No easy bleeding, easy bruising or enlarged lymph nodes Exam Const General: cooperative, healthy appearing, comfortable and no acute distress [facility] Head: normocephalic and atraumatic Ears: hearing grossly normal bilaterally and external ears normal Nose: external nose normal Eyes General: appearance normal, both eyes and all related structures Neck Neck: normal visual inspection and trachea midline Chest Chest palpation & inspection: normal inspection of the chest Resp Effort & Inspection: normal respiratory effort, able to speak in complete sentences and symmetric chest movement Cardio Rate: regular rate GI Inspection: normal to inspection Palpation: soft and nontender General: No CVA tenderness Skin General: no rashes or lesions noted Neuro General: patient alert, patient awake, patient oriented x3 and CN's II-XI intactbilaterally Extrem General: normal to inspection Psych Appearance: grossly normal and well kempt Mental Status: mental status grossly normal Results POC UA Auto w/o Microscopy Office Urine Color Last Edit by Gina Tavera on 06/08/25 08:47 Office Urine Clarity Last Edit by Gina Tavera on 06/08/25 08:47 Office Urine Glucose Negative Last Edit by Gina Tavera on 06/08/25 08:4 7 Office Urine Ketones Last Edit by Gina Tavera on 06/08/25 08:47 Office Urine Bilirubin Last Edit by Gina Tavera on 06/08/25 08:47 Office Urine Urobilinogen Negative Last Edit by Gina Tavera on 06/08/25 08:47 Off Ur Spec [place] Last Edit by Gina Tavera on 06/08/25 08:47 Office Urine pH Last Edit by Gina Tavera on 06/08/25 08:47 Office Urine Protein Negative Last Edit by Gina Tavera on 06/08/25 08:4 7 Office Urine Blood Negative Last Edit by Gina Tavera on 06/08/25 08:47 Office Urine Blood Hemolyzed Last Edit by Gina Tavera on 06/08/25 08:4 7 Office Urine Nitrate Negative Last Edit by Gina Tavera on 06/08/25 08:4 7 Off Ur Leukocytes Positive Last Edit by Gina Tavera on 06/08/25 08:47 leuks 25 Coding Level of Care Code Off vis,est,level 4 Diagnoses Vulvar atrophy N90.5 Vaginal atrophy N95.2 Mixed incontinence N39.46 Nocturia R35.1 Interstitial cystitis N30.10 Assessment and Plan Assessment and Plan (1) Vulvar atrophy: Status: Acute (2) Vaginal atrophy: Status: Acute (3) Mixed incontinence: Status: Acute (4) Nocturia: Status: Acute (5) Interstitial cystitis: Status: Acute Orders: Orders POC UA Auto w/o Microscopy Today N39.0 - Urinary tract infection, site not specified Medications: New ospemifene (Osphena) must administer with food, preferably a high-fat meal 60 mg PO QDAY 30 tabs 3RF Discontinued phenazopyridine (Pyridium) Discontinued Reason: Pt no longer taking 200 mg PO TID PRN 7 days PRN 30 tabs 0RF Bladder Spasms nitrofurantoin monohyd/m-cryst 100 mg (Macrobid) must administer with a meal/food Discontinued Reason: Pt no longer taking 100 mg PO BID 6 caps 0RF Plan estriol/testosterone cream continue estrogen cream Osphenia schedule for midurethral sling and cystoscopy Clinical Quality Measures Falls Risk Screening/Assistive Devices Have you fallen in the past year?: No 06/08/25 0908 <Electronically signed by Leatha Darby MD> Date _ Leatha Olvera Signature: Date (if applicable) CC: ~ [facility] Work Phone: 1(460) 574-993108-08-2025 History of Present illness Narrative* Luis Felipe Norton RT(R) - 05/27/2025 10:20 AM EDT Radiology Service Progress Note PATIENT NAME: Dahlia Parsons DATE OF SERVICE: May 27, 2025 TIME: 10:18 AM PATIENT IDENTITY VERIFICATION COMPLETED USING TWO (2) IDENTIFIERS: Name and Date of confirmedby patient verbally. FALL SCREENING: Has the patient had 2 falls in the last year or 1 fall with injury or currently using an Ambulatory Assistive Device (Walker, Cane, Wheelchair, Crutches, etc.)? No PATIENT GENDER DATA: Assigned female at . status: : No status:NO. PATIENT RELEVANT IMPLANT DATA REVIEWED: Not Applicable PATIENT PRESENTS WITH AN IMPLANTABLE OR ATTACHED HIDE AND SKIN PROCESSING WORKER: No RADIOLOGY DEPARTMENT: Mammography PERIPHERAL IV DATA: Not applicable SIGNED BY: RT Jorge (R)(M) May 27, 2025 10:18 AM [facility] NoteHNO ID: [id number] Author: LUIS FELIPE NORTON RT (R) Service: Radiology Author Type: Technologist Type: Progress Notes Filed: 05/27/2025 10:19 Note Text: Radiology Service Progress Note PATIENT NAME: Dahlia Parsons DATE OF SERVICE: May 27, 2025 TIME: 10:18 AM PATIENT IDENTITY VERIFICATION COMPLETED USING TWO (2) IDENTIFIERS: Name and Date of confirmed by patient verbally. FALL SCREENING: Has the patient had 2 falls in the last year or 1 fall with injury or currently using an Ambulatory Assistive Device (Walker, Cane, Wheelchair, Crutches, etc.)? No PATIENT GENDER DATA: Assigned female at . status: : No status: NO. PATIENT RELEVANT IMPLANT DATA REVIEWED: Not Applicable PATIENT PRESENTS WITH AN IMPLANTABLE OR ATTACHED HIDE AND SKIN PROCESSING WORKER: No RADIOLOGY DEPARTMENT: Mammography PERIPHERAL IV DATA: Not applicable SIGNED BY: RT Ania(R)(M) May 27, 2025 10:18 [id number] Evaluation note* Diagnosis Onset Date Resolution Status Admit Date Interstitial cystitis acute May 8:34am Mixed incontinence acute June 08, 2025 8:34am Nocturia acute June 08, 025 8:34am Vaginal atrophy acute June 082024 8:34am Vulvar atrophy acute May 8:34am [facility] [employer] Work Phone: 1(695) 188-360911-22-2024 Miscellaneous Notes* Telephone Encounter - Olivia Ramos RN - 09/10/2024 3:19 PM EST Spoke with patient regarding reminder for stress test on Friday and given instructions. [facility] Telephone encounter Note * Telephone Encounter - Olivia Ramos RN - 09/10/2024 3:19 PM EST Spoke with patient regarding reminder for stress test on Friday and given instructions. [facility]07-26-[facility] Evaluation + Plan noteExtracted from: Title:Clinical Document Author:LIBRA MCCARTHY PM Date:05/14/24 [place] ADMISSION HISTORY AN D PHYSICIAL CHIEF COMPLAINT: HISTORY OF PRESENT ILLNESS: REVIEW OF SYSTEMS: ACTIVE PROBLEMS: (6) Acid reflux (537254206) Edema (224347026) Hyperthyroidism (59671276) Interstitial cystitis (254210193) OA (osteoarthritis) (3300876071) TMJ (temporomandibular joint syndrome) (83392013) MEDICATIONS: Active Inpt Meds: clindamycin (clindamycin 900 mg/50 mL-D5% intravenous solution) Start: 05/15/24 6:00:00 EDT, Dose = 900 mg, = 50 mL, IV Piggyback, PREOP pharm, Rate: 100 mL/hr, Infuse over: 30 minute(s), 05/15/24 6:00:00 EDT Active PRN Meds: None One Time Meds: None Active IV Meds: Lactated Ringers Infusion 1000 mL (LR 1000 mL) Start: 05/14/24 7:59:00 EDT, Rate: 125 mL/hr, 05/14/24 7:59:00 EDT ALLERGIES: (3) doxycycline penicillin sulfa drug FAMILY HISTORY: SOCIAL HISTORY: PHYSICAL EXAM: VITALS: No Data Available 24 Hr Tmax: No Data Available 36 Hr Tmax: No Data Available Vital Signs are the last 5 in the past 48 hours. Weights display the last 5 within 7 days. Initial Wt: No Data Available Current Wt: No Data Available GENERAL: HEENT: CARDIOVASCULAR: RESPIRATORY: ABDOMEN: EXREMETIES: NEUROLOGICAL: PSYCHIATRIC: LABS: No 36hr Lab Data DIAGNOSTICS: IMPRESSION: PLAN: History and Physical Update I have examined the patient; reviewed the H&P and there are no changes to the H&P unless noted below. [facility] 07-26-2024 Hospital Discharge instructions Patient Education 05/14/2024 10:14:09 How to Use Cold Therapy, Irmw-mv-Gvhw How to Use Cold Therapy Cold therapy, or cryotherapy, is a treatment that uses cold temperatures to treat an injury or medical condition. It includes using cold packs or ice packs to reduce pain and swelling. Only use cold therapy if your doctor says it is okay. What are the risks? Generally, cold therapy is a safe treatment. However, it is not safe for: People who are not able to say they are in pain. These include small children and people who have memory problems. People who have certain conditions, such as: ?A problem in the vessels that slows blood flow to the fingers and toes (Raynaud's syndrome). ?Feeling very cold easily (cold hypersensitivity). ?Lack of feeling in the area being iced. Cold therapy may not be safe for people who have other conditions. Do not use it without talking toyour doctor if you have: A heart condition. High blood pressure. Open or healing wounds. An infection. Pain and swelling in your joints (rheumatoid arthritis). Poor blood flow in the body. Diabetes. Certain skin conditions. How can I make a cold pack? When using a cold pack at home to reduce pain and swelling, you can use: A silica gel cold pack that has been left in the freezer. You can buy this online or in stores. A sealable plastic bag that has been filled with crushed ice. A washcloth or paper towels soaked in cold (or ice) water. A plastic bag of frozen vegetables. Throw them away when you are finished using them as a cold pack. Supplies needed: A cold pack. A towel. This can be dry or damp, based on what you like. How to use cold therapy 1.Have your cold pack ready. 2.Place a towel between the cold pack and your skin. You may also wrap the cold pack in a towel. 3.Put the cold pack on the affected area. Keep it on for no more than 20 minutes at a time. 4.Check your skin after 5 minutes to make sure that there is no damage to the area. Check for: White spots on your skin. Your skin may look blotchy or mottled. Skin that looks blue or pale. Skin that feels waxy or hard. 5.Repeat these steps as many times each day as told by your doctor. Always use a towel to avoid direct contact with your skin. Contact a doctor if: You start to have white spots on your skin. This may give your skin a blotchy or mottled look. Your skin turns blue or pale. Your skin becomes waxy or hard. Your swelling gets worse. Summary Cold therapy, or cryotherapy, is used to treat an injury or other conditions. It includes using cold packs or ice packs to reduce pain and swelling. Cold therapy is not safe for people who are not able to say they are in pain. When using cold packs or ice packs, always place a towel between the cold source and your skin. Check your skin after 5 minutes of icing it. This is to make sure that there is no skin damage. Contact your doctor if you notice changes in your skin or your swelling gets worse. This information is not intended to replace advice given to you by your health care provider. Make sure you discuss any questions you have with your health care provider. Document Released: 03/24/2009 Document Revised: 2019 Document Reviewed: 2019 [employer] Patient Education 2020 [employer]. 05/14/2024 10:13:59 Ankle Arthroscopy, Care After Ankle Arthroscopy, Care After This sheet gives you information about how to care for yourself after your procedure. Your health care provider may also give you more specific instructions. If you have problems or questions, contact your health care provider. What can I expect after the procedure? After your procedure, it is common to have: Swelling, stiffness, and pain. Constipation from pain medicine. Follow these instructions at home: If you have a splint or boot: Wear the splint or boot as told by your health care provider. Remove it only as told by your healthcare provider. Loosen the splint or boot if your toes tingle, become numb, or turn cold and blue. Keep the splint or boot clean. If the splint or boot is not waterproof: ?Do not let it get wet. ?Cover it with a watertight covering when you take a shower. Bathing Do not take baths, swim, or use a hot tub until your health care provider approves. Ask your healthcare provider if you can take showers. If your cast or boot is not waterproof, cover it with a watertight covering when you take a shower. Keep the dressing dry until your health care provider says it can be removed. Incision care Follow instructions from your health care provider about how to take care of your incisions. Make sure you: ?Wash your hands with soap and water before you change your bandage (dressing). If soap and water are not available, use hand lead principal technical architect. ?Change your dressing as told by your health care provider. ?Leave stitches (sutures), skin glue, or adhesive strips in place. These skin closures may need to stay in place for 2 weeks or longer. If adhesive strip edges start to loosen and curl up, you may trim the loose edges. Do not remove adhesive strips completely unless your health care provider tells you to do that. Check your incision area every day for signs of infection. Check for: ?More redness, swelling, or pain. ?You have more fluid or blood. ?Warmth ?Pus or a bad smell. Keep the dressing dry until your health care provider says it can be removed. Managing pain, stiffness, and swelling Raise (elevate) the injured area above the level of your heart while you are sitting or lying down. If directed, put ice on the injured area: ?If you have a removable splint or boot, remove it as told by your health care provider ?Put ice in a plastic bag. ?Place a towel between your skin and the bag. ?Leave the ice on for 20 minutes, 2 3 times a day. Move your toes often to avoid stiffness and to lessen swelling. Driving Do not drive until you are able to put all of your weight onto your surgical leg. Ask your health care provider when it is safe to drive if you have a splint or boot. Do not drive or use heavy machinery while taking prescription pain medicine. General instructions Do any exercises or physical therapy as told by your health care provider. Follow your health care provider's instructions on using your injured limb to support your body weight. You may need to use crutches. To prevent or treat constipation while you are taking prescription pain medicine, your health care provider may recommend that you: ?Drink enough fluid to keep your urine clear or pale yellow. ?Take nzhf-gqg-pdxhqtg or prescription medicines. ?Eat foods that are high in fiber, such as fresh fruits and vegetables, whole grains, and beans. ?Limit foods that are high in fat and processed sugars, such as fried and sweet foods. Take myei-lkc-rkvqzbr and prescription medicines only as told by your health care provider. Do not use any products that contain nicotine or tobacco. These can delay bone healing. This includes cigarettes and e-cigarettes. If you need help quitting, ask your health care provider. Keep all follow-up visits as told by your health care provider. This is important. Contact a health care provider if: You have a fever. You have more redness, swelling, or pain around your incision area. You have more fluid or blood coming from your incision area. Your incision feels warm to the touch. You have pus or a bad smell coming from your incision area. Your incision site breaks open after the closures are removed. Your pain does not get better when you take medicine. Get help right away if: You have chest pain or shortness of breath. You have numbness in your foot or toes, and it gets worse. Your foot turns cold and blue and does not get better when you loosen your splint or boot. Summary It is common to have ankle swelling, stiffness, or pain after the procedure. Putting ice and elevating your ankle will help manage the swelling and pain. Do not drive or use heavy machinery if you are taking prescription pain medicine. Ask your health care provider when it is safe to drive. Contact your health care provider if you notice any signs of infection. This information is not intended to replace advice given to you by your health care provider. Make sure you discuss any questions you have with your health care provider. Document Released: 07/27/2014 Document Revised: 09/18/2018 Document Reviewed: 10/03/2017 [employer] Patient Education 2020 [employer]. 05/14/2024 10:13:58 Ankle Arthroscopy Ankle Arthroscopy Ankle arthroscopy is a surgical procedure in which small cuts (incisions) are made in the area around your ankle. A small telescope-like instrument (arthroscope) and surgical instruments are insertedthrough these incisions into your ankle joint. This procedure allows the surgeon to look at the ankle joint, which may help to diagnose and treat any problems at the ankle joint. This procedure may help to lessen pain and increase the use of your ankle. You may need this procedure if you have problems with your ankle joint, such as: Ankle fracture. Arthritis in your ankle. Ankle instability. Pinching in front or at the back of the ankle joint due to repetitive activities (impingement). Damaged or loose cartilage, bone or scar tissue in your ankle. Infection in the ankle joint. Pain and swelling. Tell a health care provider about: Any allergies you have. All medicines you are taking, including vitamins, herbs, eye drops, creams, and kzcm-rdr-xstjsww medicines. Any problems you or family members have had with anesthetic medicines. Any blood disorders you have. Any surgeries you have had. Any medical conditions you have, including any current infection. Whether you are or may be . What are the risks? Generally, this is a safe procedure. However, problems may occur, including: Infection. Allergic reactions to medicines or dyes. Bleeding. Damage to nerves or blood vessels. Blood clots. Numbness or tingling on the top of the foot. What happens before the procedure? Staying hydrated Follow instructions from your health care provider about hydration, which may include: Up to 2 hours before the procedure you may continue to drink clear liquids, such as water, clear fruit juice, black coffee, and plain tea. Eating and drinking restrictions Follow instructions from your health care provider about eating and drinking, which may include: 8 hours before the procedure stop eating heavy meals or foods such as meat, fried foods, or fatty foods. 6 hours before the procedure stop eating light meals or foods, such as toast or cereal. 6 hours before the procedure stop drinking milk or drinks that contain milk. 2 hours before the procedure stop drinking clear liquids. Medicines You may be given antibiotic medicine to help prevent infection. Ask your health care provider about: ?Changing or stopping your regular medicines. This is especially important if you are taking diabetes medicines or blood thinners. ?Taking medicines such as aspirin and ibuprofen. These medicines can thin your blood. Do not take these medicines before your procedure if your health care provider instructs you not to. General instructions Plan to have someone take you home from the hospital or clinic. If you will be going home right after the procedure, plan to have someone with you for 24 hours. You may be asked to shower with a germ-killing soap. Your health care provider may ask you about your medical history and may do a physical exam. You may have an X-ray, an MRI, or a CT scan done. You may have lab tests the day of your procedure. Ask your health care provider how your surgical site will be marked or identified. Do not use any products that contain nicotine or tobacco for as long as directed before your procedure. This includes cigarettes and e-cigarettes. If you need help quitting, ask your health care provider. What happens during the procedure? To lower your risk of infection: ?Your health care team will wash or sanitize their hands. ?Your skin will be washed with soap. ?Hair may be removed from the surgical area. An IV tube will be inserted into one of your veins. You will be given one or more of the following: ?A medicine to help you relax (sedative). ?A medicine to numb the area (local anesthetic). ?A medicine to make you fall asleep (general anesthetic). ?A medicine that is injected into your spine to numb the area below and slightly above the injection site (spinal anesthetic). A breathing tube will be placed in your lungs. Several small incisions will be made in the area around your ankle. Salt-water (saline) fluid will be placed into one of the incisions. This expands the ankle and clears away any blood. The arthroscope will be inserted through the incisions into your ankle joint. An image will be projected onto a video screen. Your surgeon will view the images to see if there is any damage to your tissues or ligaments. If an injury is found in the tissues or ligaments, such as a tear, your surgeon will fix the injury. The incisions will be closed. A bandage (dressing) will be placed over the incisions. A splint or boot may be placed on your ankle. The procedure may vary among health care providers and hospitals. What happens after the procedure? Your blood pressure, heart rate, breathing rate, and blood oxygen level will be monitored until themedicines you were given have worn off. Do not drive for 24 hours if you were given a sedative. You may have pain and swelling. You will be given pain medicine as needed. You will be asked to keep your leg raised (elevated) above the level of your heart. Summary Ankle arthroscopy is a surgical procedure that allows the surgeon to look at the ankle joint in order to diagnose and treat any problems at the ankle joint. A bandage (dressing) will be placed over the incisions and a splint or boot may be placed over yourankle. Plan to have someone take you home from the hospital or clinic. This information is not intended to replace advice given to you by your health care provider. Make sure you discuss any questions you have with your health care provider. Document Released: 10/03/2001 Document Revised: 09/18/2018 Document Reviewed: 09/30/2017 [employer] Patient Education 2020 [employer]. 05/14/2024 10:12:54 Monitored Anesthesia Care, Care After Monitored Anesthesia Care, Care After These instructions provide you with information about caring for yourself after your procedure. Your health care provider may also give you more specific instructions. Your treatment has been plannedaccording to current medical practices, but problems sometimes occur. Call your health care provider if you have any problems or questions after your procedure. What can I expect after the procedure? After your procedure, you may: Feel sleepy for several hours. Feel clumsy and have poor balance for several hours. Feel forgetful about what happened after the procedure. Have poor judgment for several hours. Feel nauseous or vomit. Have a sore throat if you had a breathing tube during the procedure. Follow these instructions at home: For at least 24 hours after the procedure: Have a responsible adult stay with you. It is important to have someone help care for you until youare awake and alert. Rest as needed. Do not: ?Participate in activities in which you could fall or become injured. ?Drive. ?Use heavy machinery. ?Drink alcohol. ?Take sleeping pills or medicines that cause drowsiness. ?Make important decisions or sign legal documents. ?Take care of children on your own. Eating and drinking Follow the diet that is recommended by your health care provider. If you vomit, drink water, juice, or soup when you can drink without vomiting. Make sure you have little or no nausea before eating solid foods. General instructions Take cwcg-wqt-pjwgqbh and prescription medicines only as told by your health care provider. If you have sleep apnea, surgery and certain medicines can increase your risk for breathing problems. Follow instructions from your health care provider about wearing your sleep device: ?Anytime you are sleeping, including during daytime naps. ?While taking prescription pain medicines, sleeping medicines, or medicines that make you drowsy. If you smoke, do not smoke without supervision. Keep all follow-up visits as told by your health care provider. This is important. Contact a health care provider if: You keep feeling nauseous or you keep vomiting. You feel light-headed. You develop a rash. You have a fever. Get help right away if: You have trouble breathing. Summary For several hours after your procedure, you may feel sleepy and have poor judgment. Have a responsible adult stay with you for at least 24 hours or until you are awake and alert. This information is not intended to replace advice given to you by your health care provider. Make sure you discuss any questions you have with your health care provider. Document Released: 01/26/2017 Document Revised: 01/04/2019 Document Reviewed: 01/26/2017 [employer] Patient Education 2020 [employer]. Follow Up Care 04/30/2024 08:01:51 With:LIBRA MCCARTHY [facility], Surgery Address: [address] [place] [address], [address] [facility] [place], [place] [id number]- When: Unknown Comments:CALL DR MCCARTHY WITH ANY QUESTIONS OR CONCERNS. GO TO THE EMERGENCY ROOM WITH ANY URGENT CONCERNS. [facility] Note Discharge Instructions Thank you for allowing [facility] to assist you with your healthcare needs. The following is importantdischarge information regarding your hospital visit. Your Care Team RIC FUENTES MD, DR. What to do next Follow Up Appointments Follow Up with LIBRA MCCARTHY DPM, Surgery Where:[address] [facility], [address] [facility] [place] [address]- Additional Information: CALL DR MCCARTHY WITH ANY QUESTIONS OR CONCERNS. GO TO THE EMERGENCY ROOM WITH ANY URGENT CONCERNS. The Following Activity and Diet Have Been Ordered for You Discharge Activity - Ordered -- Other, Follow the post-operative/post-procedure activity instructions provided by your physician's office., 05/14/24 9:52:00 EDT No qualifying data available. The Following Equipment Has Been Ordered for You Discharge Home Equipment Discharge Wound Care - Ordered -- Follow the post-operative/post-procedure wound care instructions provided by your physician's office., 05/14/24 9:52:00 EDT Allergies doxycycline vomiting penicillin itching, swelling sulfa drug itching, swelling Medications Please ask your primary doctor or pharmacist before taking any other medication not listed, including over the counter drugs, herbal medications, vitamins and or supplements as they may interact withyour home medications. What How Much When Instructions Last Dose Unchanged ascorbic acid (Vitamin C 500 mg oral tablet) 1 tab(s) by mouth Once a day Unchanged biotin (biotin 5 mg oral capsule) 1 cap by mouth Once a day Unchanged calcium carbonate (calcium (as carbonate) 600 mg oral tablet) 1 tab(s) by mouth Once a day Unchanged cholecalciferol (Vitamin D3) 25 Microgram by mouth Every day Unchanged chondroitin/ glucosamine/ methylsulfonylmethane (Osteo Bi-Flex Advanced oral tablet) 1 tab(s) by mouth Every day Unchanged clindamycin topical (clindamycin 1% topical lotion) 1 application Topical Two (2) times a day Unchanged estradiol topical (estradiol 0.1 mg/ g vaginal cream) 1 Applicatorful Vaginal Every Friday / and Friday Unchanged gabapentin (gabapentin 400 mg oral capsule) 1 cap by mouth Once a day Unchanged hydrochlorothiazide-triamterene (hydrochlorothiazide-triamterene 25 mg-37.5 mg oral capsule) 1 cap by mouth Two (2) times a day Unchanged hyoscyamine/ methena/ mblue/ phenylsal/ sodbiphos (urelle oral tablet) 1 tab(s) by mouth Two (2) times a day Unchanged magnesium oxide (Magnesium 250 mg tablet) 2 tab(s) by mouth Once a day Unchanged methIMAzole (methIMAzole 10 mg oral tablet) 1 tab(s) by mouth Once a day Unchanged potassium chloride (Pokonza 10 mEq oral powder for reconstitution) 1 Packet(s) by mouth Once a day dilute the contents in at least 4 oz. of cold water Unchanged pravastatin (pravastatin 20 mg oral tablet) 1 tab(s) by mouth Daily at bedtime Unchanged zinc gluconate (zinc (as gluconate) 15 mg oral tablet) 1 tab(s) by mouth Every day Unchanged zolpidem (zolpidem 10 mg oral tablet) 1 tab(s) by mouth Daily at bedtime Please take this list to your next doctor s visit. Bring all medications you take, including over the counter medications, herbals and other supplements with you to your doctor s visit. Patients and families are reminded to discard old lists and to update any records with all medication providers or retail pharmacies. Education Materials How to Use Cold Therapy Cold therapy, or cryotherapy, is a treatment that uses cold temperatures to treat an injury or medical condition. It includes using cold packs or ice packs to reduce pain and swelling. Only use cold therapy if your doctor says it is okay. What are the risks? Generally, cold therapy is a safe treatment. However, it is not safe for: People who are not able to say they are in pain. These include small children and people who have memory problems. People who have certain conditions, such as: ? A problem in the vessels that slows blood flow to the fingers and toes (Raynaud's syndrome). ? Feeling very cold easily (cold hypersensitivity). ? Lack of feeling in the area being iced. Cold therapy may not be safe for people who have other conditions. Do not use it without talking toyour doctor if you have: A heart condition. High blood pressure. Open or healing wounds. An infection. Pain and swelling in your joints (rheumatoid arthritis). Poor blood flow in the body. Diabetes. Certain skin conditions. How can I make a cold pack? When using a cold pack at home to reduce pain and swelling, you can use: A silica gel cold pack that has been left in the freezer. You can buy this online or in stores. A sealable plastic bag that has been filled with crushed ice. A washcloth or paper towels soaked in cold (or ice) water. A plastic bag of frozen vegetables. Throw them away when you are finished using them as a cold pack. Supplies needed: A cold pack. A towel. This can be dry or damp, based on what you like. How to use cold therapy 1. Have your cold pack ready. 2. Place a towel between the cold pack and your skin. You may also wrap the cold pack in a towel. 3. Put the cold pack on the affected area. Keep it on for no more than 20 minutes at a time. 4. Check your skin after 5 minutes to make sure that there is no damage to the area. Check for: White spots on your skin. Your skin may look blotchy or mottled. Skin that looks blue or pale. Skin that feels waxy or hard. 5. Repeat these steps as many times each day as told by your doctor. Always use a towel to avoid direct contact with your skin. Contact a doctor if: You start to have white spots on your skin. This may give your skin a blotchy or mottled look. Your skin turns blue or pale. Your skin becomes waxy or hard. Your swelling gets worse. Summary Cold therapy, or cryotherapy, is used to treat an injury or other conditions. It includes using cold packs or ice packs to reduce pain and swelling. Cold therapy is not safe for people who are not able to say they are in pain. When using cold packs or ice packs, always place a towel between the cold source and your skin. Check your skin after 5 minutes of icing it. This is to make sure that there is no skin damage. Contact your doctor if you notice changes in your skin or your swelling gets worse. This information is not intended to replace advice given to you by your health care provider. Make sure you discuss any questions you have with your health care provider. Document Released: 03/24/2009 Document Revised: 2019 Document Reviewed: 2019 [employer] Patient Education 2020 [employer] Ankle Arthroscopy, Care After This sheet gives you information about how to care for yourself after your procedure. Your health care provider may also give you more specific instructions. If you have problems or questions, contact your health care provider. What can I expect after the procedure? After your procedure, it is common to have: Swelling, stiffness, and pain. Constipation from pain medicine. Follow these instructions at home: If you have a splint or boot: Wear the splint or boot as told by your health care provider. Remove it only as told by your healthcare provider. Loosen the splint or boot if your toes tingle, become numb, or turn cold and blue. Keep the splint or boot clean. If the splint or boot is not waterproof: ? Do not let it get wet. ? Cover it with a watertight covering when you take a shower. Bathing Do not take baths, swim, or use a hot tub until your health care provider approves. Ask your healthcare provider if you can take showers. If your cast or boot is not waterproof, cover it with a watertight covering when you take a shower. Keep the dressing dry until your health care provider says it can be removed. Incision care Follow instructions from your health care provider about how to take care of your incisions. Make sure you: ? Wash your hands with soap and water before you change your bandage (dressing). If soap and water are not available, use hand lead principal technical architect. ? Change your dressing as told by your health care provider. ? Leave stitches (sutures), skin glue, or adhesive strips in place. These skin closures may need to stay in place for 2 weeks or longer. If adhesive strip edges start to loosen and curl up, you may trim the loose edges. Do not remove adhesive strips completely unless your health care provider tells you to do that. Check your incision area every day for signs of infection. Check for: ? More redness, swelling, or pain. ? You have more fluid or blood. ? Warmth ? Pus or a bad smell. Keep the dressing dry until your health care provider says it can be removed. Managing pain, stiffness, and swelling Raise (elevate) the injured area above the level of your heart while you are sitting or lying down. If directed, put ice on the injured area: ? If you have a removable splint or boot, remove it as told by your health care provider ? Put ice in a plastic bag. ? Place a towel between your skin and the bag. ? Leave the ice on for 20 minutes, 2 3 times a day. Move your toes often to avoid stiffness and to lessen swelling. Driving Do not drive until you are able to put all of your weight onto your surgical leg. Ask your health care provider when it is safe to drive if you have a splint or boot. Do not drive or use heavy machinery while taking prescription pain medicine. General instructions Do any exercises or physical therapy as told by your health care provider. Follow your health care provider's instructions on using your injured limb to support your body weight. You may need to use crutches. To prevent or treat constipation while you are taking prescription pain medicine, your health care provider may recommend that you: ? Drink enough fluid to keep your urine clear or pale yellow. ? Take buku-wry-rsbzphx or prescription medicines. ? Eat foods that are high in fiber, such as fresh fruits and vegetables, whole grains, and beans. ? Limit foods that are high in fat and processed sugars, such as fried and sweet foods. Take qjnl-fgg-qihruyd and prescription medicines only as told by your health care provider. Do not use any products that contain nicotine or tobacco. These can delay bone healing. This includes cigarettes and e-cigarettes. If you need help quitting, ask your health care provider. Keep all follow-up visits as told by your health care provider. This is important. Contact a health care provider if: You have a fever. You have more redness, swelling, or pain around your incision area. You have more fluid or blood coming from your incision area. Your incision feels warm to the touch. You have pus or a bad smell coming from your incision area. Your incision site breaks open after the closures are removed. Your pain does not get better when you take medicine. Get help right away if: You have chest pain or shortness of breath. You have numbness in your foot or toes, and it gets worse. Your foot turns cold and blue and does not get better when you loosen your splint or boot. Summary It is common to have ankle swelling, stiffness, or pain after the procedure. Putting ice and elevating your ankle will help manage the swelling and pain. Do not drive or use heavy machinery if you are taking prescription pain medicine. Ask your health care provider when it is safe to drive. Contact your health care provider if you notice any signs of infection. This information is not intended to replace advice given to you by your health care provider. Make sure you discuss any questions you have with your health care provider. Document Released: 07/27/2014 Document Revised: 09/18/2018 Document Reviewed: 10/03/2017 [employer] Patient Education 2020 [employer]. Ankle Arthroscopy Ankle arthroscopy is a surgical procedure in which small cuts (incisions) are made in the area around your ankle. A small telescope-like instrument (arthroscope) and surgical instruments are insertedthrough these incisions into your ankle joint. This procedure allows the surgeon to look at the ankle joint, which may help to diagnose and treat any problems at the ankle joint. This procedure may help to lessen pain and increase the use of your ankle. You may need this procedure if you have problems with your ankle joint, such as: Ankle fracture. Arthritis in your ankle. Ankle instability. Pinching in front or at the back of the ankle joint due to repetitive activities (impingement). Damaged or loose cartilage, bone or scar tissue in your ankle. Infection in the ankle joint. Pain and swelling. Tell a health care provider about: Any allergies you have. All medicines you are taking, including vitamins, herbs, eye drops, creams, and iqun-nhw-mcrmdky medicines. Any problems you or family members have had with anesthetic medicines. Any blood disorders you have. Any surgeries you have had. Any medical conditions you have, including any current infection. Whether you are or may be . What are the risks? Generally, this is a safe procedure. However, problems may occur, including: Infection. Allergic reactions to medicines or dyes. Bleeding. Damage to nerves or blood vessels. Blood clots. Numbness or tingling on the top of the foot. What happens before the procedure? Staying hydrated Follow instructions from your health care provider about hydration, which may include: Up to 2 hours before the procedure you may continue to drink clear liquids, such as water, clear fruit juice, black coffee, and plain tea. Eating and drinking restrictions Follow instructions from your health care provider about eating and drinking, which may include: 8 hours before the procedure stop eating heavy meals or foods such as meat, fried foods, or fatty foods. 6 hours before the procedure stop eating light meals or foods, such as toast or cereal. 6 hours before the procedure stop drinking milk or drinks that contain milk. 2 hours before the procedure stop drinking clear liquids. Medicines You may be given antibiotic medicine to help prevent infection. Ask your health care provider about: ? Changing or stopping your regular medicines. This is especially important if you are taking diabetes medicines or blood thinners. ? Taking medicines such as aspirin and ibuprofen. These medicines can thin your blood. Do not take these medicines before your procedure if your health care provider instructs you not to. General instructions Plan to have someone take you home from the hospital or clinic. If you will be going home right after the procedure, plan to have someone with you for 24 hours. You may be asked to shower with a germ-killing soap. Your health care provider may ask you about your medical history and may do a physical exam. You may have an X-ray, an MRI, or a CT scan done. You may have lab tests the day of your procedure. Ask your health care provider how your surgical site will be marked or identified. Do not use any products that contain nicotine or tobacco for as long as directed before your procedure. This includes cigarettes and e-cigarettes. If you need help quitting, ask your health care provider. What happens during the procedure? To lower your risk of infection: ? Your health care team will wash or sanitize their hands. ? Your skin will be washed with soap. ? Hair may be removed from the surgical area. An IV tube will be inserted into one of your veins. You will be given one or more of the following: ? A medicine to help you relax (sedative). ? A medicine to numb the area (local anesthetic). ? A medicine to make you fall asleep (general anesthetic). ? A medicine that is injected into your spine to numb the area below and slightly above the injectionsite (spinal anesthetic). A breathing tube will be placed in your lungs. Several small incisions will be made in the area around your ankle. Salt-water (saline) fluid will be placed into one of the incisions. This expands the ankle and clears away any blood. The arthroscope will be inserted through the incisions into your ankle joint. An image will be projected onto a video screen. Your surgeon will view the images to see if there is any damage to your tissues or ligaments. If an injury is found in the tissues or ligaments, such as a tear, your surgeon will fix the injury. The incisions will be closed. A bandage (dressing) will be placed over the incisions. A splint or boot may be placed on your ankle. The procedure may vary among health care providers and hospitals. What happens after the procedure? Your blood pressure, heart rate, breathing rate, and blood oxygen level will be monitored until themedicines you were given have worn off. Do not drive for 24 hours if you were given a sedative. You may have pain and swelling. You will be given pain medicine as needed. You will be asked to keep your leg raised (elevated) above the level of your heart. Summary Ankle arthroscopy is a surgical procedure that allows the surgeon to look at the ankle joint in order to diagnose and treat any problems at the ankle joint. A bandage (dressing) will be placed over the incisions and a splint or boot may be placed over yourankle. Plan to have someone take you home from the hospital or clinic. This information is not intended to replace advice given to you by your health care provider. Make sure you discuss any questions you have with your health care provider. Document Released: 10/03/2001 Document Revised: 09/18/2018 Document Reviewed: 09/30/2017 [employer] Patient Education 2020 [employer] Monitored Anesthesia Care, Care After These instructions provide you with information about caring for yourself after your procedure. Your health care provider may also give you more specific instructions. Your treatment has been plannedaccording to current medical practices, but problems sometimes occur. Call your health care provider if you have any problems or questions after your procedure. What can I expect after the procedure? After your procedure, you may: Feel sleepy for several hours. Feel clumsy and have poor balance for several hours. Feel forgetful about what happened after the procedure. Have poor judgment for several hours. Feel nauseous or vomit. Have a sore throat if you had a breathing tube during the procedure. Follow these instructions at home: For at least 24 hours after the procedure: Have a responsible adult stay with you. It is important to have someone help care for you until youare awake and alert. Rest as needed. Do not: ? Participate in activities in which you could fall or become injured. ? Drive. ? Use heavy machinery. ? Drink alcohol. ? Take sleeping pills or medicines that cause drowsiness. ? Make important decisions or sign legal documents. ? Take care of children on your own. Eating and drinking Follow the diet that is recommended by your health care provider. If you vomit, drink water, juice, or soup when you can drink without vomiting. Make sure you have little or no nausea before eating solid foods. General instructions Take tcjq-kkn-oqtwpsx and prescription medicines only as told by your health care provider. If you have sleep apnea, surgery and certain medicines can increase your risk for breathing problems. Follow instructions from your health care provider about wearing your sleep device: ? Anytime you are sleeping, including during daytime naps. ? While taking prescription pain medicines, sleeping medicines, or medicines that make you drowsy. If you smoke, do not smoke without supervision. Keep all follow-up visits as told by your health care provider. This is important. Contact a health care provider if: You keep feeling nauseous or you keep vomiting. You feel light-headed. You develop a rash. You have a fever. Get help right away if: You have trouble breathing. Summary For several hours after your procedure, you may feel sleepy and have poor judgment. Have a responsible adult stay with you for at least 24 hours or until you are awake and alert. This information is not intended to replace advice given to you by your health care provider. Make sure you discuss any questions you have with your health care provider. Document Released: 01/26/2017 Document Revised: 01/04/2019 Document Reviewed: 01/26/2017 [employer] Patient Education 2020 [employer] Additional Information VACCINATE! IT SAVES LIVES! Members of the community who have not yet received the COVID-19 vaccine and would like to receive it can visit one of [facility] vaccine clinics. There are many vaccine clinic locations within the [facility]. For locations and available times, please visit [email or web address] It is important to note that some COVID mobile vaccine clinics are held outdoors and may be canceled in rainy or stormy conditions. To learn more about pediatric vaccinations (ages 5-11), we invite you to visit the [facility] webpage. [email or web address] learn more about the COVID-19 vaccine, we invite you to visit the CDC website for a list of frequently asked questions.https://www.cdc.gov/coronavirus/2019-ncov/vaccines/faq.html [employer] Patient Portal Access Instructions: Stay connected with your healthcare team and access your personal medical information anytime with the [employer] Patient Portal. Please follow the directions below to create your [employer] account: 1.Access the email account you provided upon registration to the hospital/physician office.2.Look for an invitation email from [facility].3.Open the email and access the invitation link: AcceptInvitation to [employer].4.Fill in the required pace to create your account. To access your account, visit [email or web address]. Click the blue button labeled "Access Patient Portal" and then log in with the username and password that you created in the steps above. You will be able to view your test results, lab results, a summary of your visits, upcoming appointments and more. There is also a convenient messaging option where you can send secure messages to your p rovider. In addition, you will have the ability to download any documents or summaries to your computer and/or send the information securely to a physician. Remember that your healthcare information is confidential, so carefully consider who you will allowto register on the [employer] Patient Portal for access to your information. You can also access the [employer] Patient Portal on the [facility] [employer]. Simply click on "Patient Portal" and then log into your account. If you would like to receive a full copy of your medical records, please contact the [facility] Medical Records Department by calling [phone], Friday through Friday between 8 a.m. and 4:30 p.m. HOW TO SAFELY DISPOSE OF PRESCRIPTION MEDICATIONS Please use one of the following methods to safely dispose of your unused medications. 1.Use a drug disposal kit: the drug disposal pouch allows you to safely discard your old and unuseddrugs. Ask your nurse to give you one when you are discharged.2.Visit a local take-back location: Many local pharmacies and police departments have programs that collect old and unwanted prescriptiondrugs. Call your local pharmacy or go to http://[employer]/9A7Uh8m to find one close to you.3.Make use of household items: Use cat litter or old coffee grounds to dispose medications if other options arenot available. Mix your drugs with these household products, seal them in an airtight container andthrow it into the garbage. Call [facility]: [phone] to be sure your drugs can be disposed of in this way. Some medicines may require a different approach.4.Never flush your medications down the toilet. IF YOU HAVE BEEN PRESCRIBED AN OPIOID FOR PAIN If you have been prescribed an opioid (such as hydrocodone, oxycodone or morphine), it is critical to understand the possible side effects and risks of opioid pain medications. Even when taken as directed, opioids can have several side effects including: Tolerance, meaning you might need to take more of a medication for the same pain relief. Nausea, vomiting and/or constipation. Sleepiness, dizziness, dry mouth, confusion, depression or itching. Physical dependence, meaning you have withdrawal symptoms when a medication is stopped, can develop within a few days. KNOW YOUR RESPONSIBILITIES It is important to know exactly how much and how often to take the opioid pain medications you are prescribed. Never take opioids in higher amounts or more often than prescribed. Do not combine opioids with alcohol or other drugs that cause drowsiness, such as benzodiazepines, also known as benzos, including diazepam and alprazolam, muscle relaxants or sleep aids. Never sell or share prescription opioids. This is illegal. Store opioids in a secure place and out of reach of others (including children, family, friends and visitors). The last page of this document has been signed and retained as a CHART COPY. Signatures Patient Education Materials How to Use Cold Therapy, Maza-ae-Mjlx Ankle Arthroscopy, Care After Ankle Arthroscopy Monitored Anesthesia Care, Care After Medication Leaflets My discharge plan and instructions have been reviewed and explained to me and I,DAHLIA PARSONS understand my current condition and have read and understand these discharge instructions. I have received a written copy of the plan/instructions. If I have questions, I am aware that I should contactmy doctor. 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 Family's history: negative. Review of Systems Ear/Nose/Mouth/Throat: Negative. Respiratory: Negative. Cardiovascular: Negative. Gastrointestinal: Reflux. Genitourinary: Negative. Endocrine: hypothyroid. Musculoskeletal: OA. Integumentary: Negative. Neurologic: Negative. Health Status Allergies: Allergic Reactions (Selected) Severity Not Documented Doxycycline- Vomiting. Penicillin- Swelling and itching. Sulfa drug- Itching and swelling., Allergies (3) ActiveSeverityReaction penicillinswelling, itching sulfa drugswelling, itching doxycyclinevomiting Current medications: (Selected) Inpatient Medications Ordered LR 1000 mL: 125 mL/hr, Intravenous LR 1000 mL: 20 mL/hr, Intravenous Zofran ( PACU ): 4 mg, 2 mL, IV Push, AsDirected, PRN: Nausea/Vomiting morphine ( PACU ): 2 mg, 1 mL, IV Push, q5min, PRN: Pain, scale 4-6 Documented Medications Documented Magnesium 250 mg tablet: 500 mg, 2 tab(s), Oral, qDay, 0 Refill(s) Osteo Bi-Flex Advanced oral tablet: 1 tab(s), Oral, Daily, 0 Refill(s) Pokonza 10 mEq oral powder for reconstitution: 1 packet(s), Oral, qDay, dilute the contents in at least 4 oz. of cold water, 60 packet(s), 0 Refill(s) Vitamin C 500 mg oral tablet: 500 mg, 1 tab(s), Oral, qDay, 30 tab(s), 0 Refill(s) Vitamin D3: 25 mcg, 1 tab(s), Oral, Daily, 0 Refill(s) biotin 5 mg oral capsule: 5 mg, 1 cap(s), Oral, qDay, 30 cap(s), 0 Refill(s) calcium (as carbonate) 600 mg oral tablet: 600 mg, 1 tab(s), Oral, qDay, 0 Refill(s) clindamycin 1% topical lotion: 1 magaly, Topical, BID, 60 mL, 0 Refill(s) estradiol 0.1 mg/g vaginal cream: 1 appl, Vaginal, Tues/Thurs/Sat, 0 Refill(s) gabapentin 400 mg oral capsule: 400 mg, 1 cap(s), Oral, qDay, 0 Refill(s) hydrochlorothiazide-triamterene 25 mg-37.5 mg oral capsule: 1 cap(s), Oral, BID, 0 Refill(s) methIMAzole 10 mg oral tablet: 10 mg, 1 tab(s), Oral, qDay, 0 Refill(s) pravastatin 20 mg oral tablet: 20 mg, 1 tab(s), Oral, qHS, 0 Refill(s) urelle oral tablet: 1 tab(s), Oral, BID, 90 EA, 0 Refill(s) zinc (as gluconate) 15 mg oral tablet: 15 mg, 1 tab(s), Oral, Daily, 0 Refill(s) zolpidem 10 mg oral tablet: 10 mg, 1 tab(s), Oral, qHS, 0 Refill(s), Medications (4) Active Scheduled: (0) Continuous: (2) Lactated Ringers Infusion 1000 mL 1,000 mL, Intravenous, 125 mL/hr Lactated Ringers Infusion 1000 mL 1,000 mL, Intravenous, 20 mL/hr PRN: (2) morphine 2 mg/mL 1 mL syringe 2 mg 1 mL, IV Push, q5min ondansetron 2 mg/ 1 mL 2 mL INJ 4 mg 2 mL, IV Push, AsDirected Problem list: Active Problems (6) Acid reflux Edema Hyperthyroidism Interstitial cystitis OA (osteoarthritis) TMJ (temporomandibular joint syndrome) Histories Past Medical History: No active or resolved past medical history items have been selected or recorded. Family History: No family history items have been selected or recorded. Procedure history: Excision of cyst ([id number]). Comments: 05/05/2024 13:56 EDT - Hortensia Lowe RN right thumb Hysterectomy ([id number]). Tonsillectomy ([id number]). Appendectomy ([id number]). Instillation of bladder ([id number]). Social History: Social & Psychosocial Habits Alcohol 05/14/2024 Use: Current Frequency: 1-2 times per week Substance Abuse 05/14/2024 Use: Never Tobacco 05/14/2024 Tobacco Use: Never (less than 100 in l Home/Environment 05/14/2024 Living situation: Home/Independent Domestic Concerns None Primary Orchestrator: Self Current Home Treatments None Special Services and Community Resources None Marital Status of Patient if Patient Independent Adult: Unmarried Nutrition/Health 05/14/2024 Type of diet: Regular Appetite Good Eating Difficulties None Physical Examination Vital Signs 05/14/2024 9:00 EDT Respiratory Rate - Anes 0 br/min br/min Systolic Blood Pressure Non-Invasive 72 mmHg mmHg Diastolic Blood Pressure Non-Invasive 63 mmHg mmHg 05/14/2024 8:20 EDT Temperature Temporal Artery 36.7 DegC Apical Heart Rate 70 bpm Respiratory Rate 18 br/min Systolic Blood Pressure Non-Invasive 100 mmHg Diastolic Blood Pressure Non-Invasive 65 mmHg Vital Signs (last 24 hrs) Last Charted Temp Yajrykcm68.7 DegC (MAY 14 08:20) Heart Rate Njgign04 bpm (MAY 14 08:20) SBP72 mmHg (MAY 14 09:00) DBP63 mmHg (MAY 14 09:00) Measurements from flowsheet : Measurements 05/14/2024 8:20 EDT Height 170 cm Height in inches 66.9 inch(es) Admission Weight 63.6 kg Weight Lbs 139.9 lb [place] Body Weight 61.44 kg Admission Body Mass Index 22.01 m2 Pain assessment: Pain Assessment 05/14/2024 8:20 EDT Primary Pain Location Ankle Primary Pain Laterality Left, Lateral Primary Pain Intensity 7 Primary Pain Time Pattern chronic Primary Pain Quality Aching Primary Pain Nonverbal Response Facial grimace Pain Scale Type 0-10 Pain scale . General: Alert and oriented. Airway: Normal temporomandibular joint mobility. Mallampati classification: II (soft palate, fauces, uvula visible). Head: Normocephalic. Dentition Evaluation: Own teeth. Neck: Supple. Respiratory: Lungs are clear to auscultation. Cardiovascular: Normal rate. Heart Sounds: Normal. Gastrointestinal: Soft. Musculoskeletal Normal range of motion. Integumentary: Intact. Neurologic: Alert, Oriented. Review / Management Results review: No qualifying data available , Lab results 05/14/2024 9:06 EDT SN - Proc - Anesthesia Type MAC, Local SN - Proc - Actual Procedure ANKLE ARTHROSCOPY WITH ANTERIOR MEDIAL TIBIAL LIP RESECTION, LEFT ANKLE 05/14/2024 9:03 EDT SN - Cul - Culture Type No Specimen per Surgeon 05/14/2024 9:00 EDT Respiratory Rate - Anes 0 br/min br/min Systolic Blood Pressure Non-Invasive 72 mmHg mmHg Diastolic Blood Pressure Non-Invasive 63 mmHg mmHg Oxygen Saturation 93 % % 05/14/2024 8:32 EDT SN - Preop - CTm Pt Ready for OR/Proced 05/14/2024 8:32 05/14/2024 8:24 EDT Continuous IV Infusions LR Wrist Left 05/14/2024 20 gauge Peripheral IV Activity: Insert new site Peripheral IV Dressing Condition: Clean, Dry, Intact Peripheral IV Dressing Activity: Applied, Transparent dressing Peripheral IV Line Status/Patency: Continuous infusion, Good blood return Peripheral IV Site Condition: No complications Peripheral IV Equipment: Extension set, PRN Adaptor Peripheral IV Number of Attempts: 1 05/14/2024 8:20 EDT Height 170 cm Height in inches 66.9 inch(es) Admission Weight 63.6 kg Weight Lbs 139.9 lb [place] Body Weight 61.44 kg Admission Body Mass Index 22.01 m2 Temperature Temporal Artery 36.7 DegC Apical Heart Rate 70 bpm Respiratory Rate 18 br/min Systolic Blood Pressure Non-Invasive 100 mmHg Diastolic Blood Pressure Non-Invasive 65 mmHg Primary Pain Location Ankle Primary Pain Laterality Left, Lateral Primary Pain Intensity 7 Primary Pain Time Pattern chronic Primary Pain Quality Aching Primary Pain Nonverbal Response Facial grimace Pain Scale Type 0-10 Pain scale Monitor Alarms On and Limits Checked Nail Bed Color [place] Capillary Refill < 2 seconds Heart Rhythm Regular Dorsalis Pedis Pulse, Left 2+ Normal Dorsalis Pedis Pulse, Right 2+ Normal Cardiac Rhythm Sinus rhythm Respirations Unlabored Respiratory Pattern Regular Oxygen Therapy Room air Oxygen Saturation 97 % Abdomen Description Soft, Rounded Urinary Elimination Voiding, no difficulties All Extremity Description [place] Skin Temperature Warm Temperature All Extremities Warm Skin Description [place], Dry, Pale Skin Integrity Intact Skin Moisture General Dry IV Present Present Neurological Symptoms Patient denies Extremity Movement Equal Characteristics of Speech Clear Level of Consciousness Alert Strength All Extremities Strong Tone All Extremities Normal Sensation All Extremities Intact Affect/Behavior Appropriate, Calm, Cooperative Orientation Oriented x 4 Allergies Yes Anesthesia Extension Set Applied Yes Line Production Cook On Yes Patient Dressed In Hospital gown CHG Preoperative Wash/Wipe Night before procedure, Day of procedure, Site specific wipe Preop Nasal Swab Povidone-Iodine CHG Skin Prep Completed for Eligible Surgery History & Physical Update On Chart Yes History & Physical On Chart Yes MRSA/MSSA Protocol Yes [place] Motor (2) Moves 4 extremities voluntarily or on command [place] Respirations (2) Spontaneous respiration without support, RR > 10 [place] Blood Pressure (2) BP 20% above or below preanesthetic level [place] Pulse (2) Pulse 20% above or below preanesthetic level [place] Oxygen Saturation (2) 94% or more [place] Level of Consciousness (2) Fully awake [place] III Score 12 Positioning Repositions self Activity Status ADL Awake, Resting Sequential Compression Device right knee high applied/on Standard Safety ID band on, Allergy Band on, Call device within reach, Bed in low position, Wheels locked, Upper/Half-Length side-rails up, Visitor at bedside, Non-Slip footwear Demonstrates Correct Call Light Use Yes Allergy Band on and Verified Yes Patient ID Band on and Verified Yes Last Fluid Intake 05/13/2024 19:00 Last Food Intake 05/13/2024 19:00 Last Void 05/14/2024 8:00 05/14/2024 8:19 EDT SN - SC - Medication LIDOCAINE 1%/EPI 30ML VIAL XYLOC SN - SC - Route of Administration Local SN - SC - By (Single) SN - SC - By (Single) 05/14/2024 8:19 EDT SN - Assess - LOC Alert, Awake SN - Assess - Orientation Oriented X 3 SN - Assess - Post-op Skin Integrity Intact/Dry 05/14/2024 8:19 EDT Lactated Ringers Injection Begin Bag 1,000 mL mL 05/14/2024 8:07 EDT SN - CAt - Case Attendee SN - CAt - Case Attendee SN - CAt - Case Attendee SN - CAt - Case Attendee SN - CAt - Case Attendee SN - CAt - Case Attendee SN - CAt - Case Attendee SN - CAt - Case Attendee SN - CAt - Case Attendee SN - CAt - Case Attendee SN - CAt - Role Performed Primary Surgeon SN - CAt - Role Performed CIRCULAR SAWYER STONE SN - CAt - Role Performed Software Firmware Engineer 1 SN - CAt - Role Performed Scrub 1 SN - CAt - Role Performed Cooler Conveyor Loader 1 05/14/2024 8:07 EDT Consent Form Signed Yes Belongings At Bedside Dress, Shoes, Undergarments Personal Home Medications Received No home medications were brought in NPO Status Maintained, More than 8 hours NPO Since 05/13/2024 19:00 Implants Verified Yes Pacemaker/AICD Verified Yes Site Verified by Patient/Family Yes Anesthesia Consent Signed Yes Blood Consent Signed Yes 05/14/2024 8:05 EDT [place] History and Physical 05/14/2024 8:03 EDT Designated Person #1 We May Share PHI Christine Platt [phone] Designated Person #1 Relationship Daughter Privacy Restrictions Requested None Status N/A Sensory Deficits None Sleep Apnea Snore No Sleep Apnea Tired No Sleep Apnea Obstruction No Sleep Apnea Pressure No Sleep Apnea BMI No Sleep Apnea Age Yes Sleep Apnea Neck No Sleep Apnea Gender No Sleep Apnea Score 1 Diagnosed With Sleep Apnea No Advanced Directives Yes Advance Directive Type [place] Durable Power [place]upp[place] Declaration (Living Will) Advance Directive Location Patient instructed to bring in copy Infectious Disease Symptoms Patient states no symptoms Infectious Disease Recent Exposure Yes Alcohol and Drug Use No Employee of Institutional Living No Health Care Employee No History of Exposure to TB No History of Positive Chest X-Ray for TB No History of Positive TB Skin Test No Homeless No Known Immunosuppression No Recent Immigrant No Resident of Institutional Living No Bloody Sputum No Fatigue No Fever No Loss of Appetite No Night Sweats No Persistent Cough > 3 Weeks No Weight Loss No Pre-Op Patient Education NPO after midnight, No makeup, No jewelry, Responsible [place] Party, Aware of surgery location, Pre-op education done, 1 bottle CHG wash with instructions given, Instructed to take ordered medications, SSI prevention handout given SN - Preprocedure Comments Spoke with patient, Verbalizes/Nonverbally indicates understanding, Other: [place] Barriers to Learning None evident Teaching Method Explanation, Printed materials Preferred Spoken Language Ugandan Preferred Written Language Ugandan Teaching Evaluation Verbalizes/Nonverbally indicates understanding Safety Brochure Information Reviewed Yes [facility] Welcome Video Viewed No Information Given by Patient Patient's Current Physicians Patient's Current Physicians Discharge To, Anticipated Home independently Prev Test Positive/Diagnosis w/COVID-19 Yes Previous COVID-19 Positive Date 2021 Current Quarantine/Isolated any Illness No Any Contact with Sick Animals/Birds No Traveled Anywhere in Last 30 Days Yes Travel Where Within [place] State[place] Lost Weight Unintentionally Recently No Eat Poorly Due to Decreased Appetite No Total MST Score 0 N/A Personal Devices, Patient Valuables None Anesthesia/Transfusions Prior anesthesia Admission Note-Nursing Same Day Patient History 05/14/2024 7:59 EDT SN - Preop - CTm Pt in SDS Room 05/14/2024 7:59 05/14/2024 6:00 EDT clindamycin 900 mg mg . Assessment and Plan [place] [employer]esthesiologists (ASA) physical status classification: Class II. Anesthetic Preoperative Plan Premedication: intravenous. Anesthetic technique: MAC. Induction: intravenously. Maintenance airway: 40% FM. Postoperative pain management: Per surgeon. Informed consent: signed by patient. Digitally Signed by ERIN CHARLTON on 05/14/2024 09:12 AM [facility]07-26-2024 Note [place] ADMISSION HISTORY AND PHYSICIAL CHIEF COMPLAINT: HISTORY OF PRESENT ILLNESS: REVIEW OF SYSTEMS: ACTIVE PROBLEMS: (6) Acid reflux ([id number]) Edema (258756760) Hyperthyroidism (62140665) Interstitial cystitis (681657416) OA (osteoarthritis) (9420369307) TMJ (temporomandibular joint syndrome) (66913242) MEDICATIONS: Active Inpt Meds: clindamycin (clindamycin 900 mg/50 mL-D5% intravenous solution) Start: 05/15/24 6:00:00 EDT, Dose =900 mg, = 50 mL, IV Piggyback, PREOP pharm, Rate: 100 mL/hr, Infuse over: 30 minute(s), 05/15/24 6:00:00 EDT Active PRN Meds: None One Time Meds: None Active IV Meds: Lactated Ringers Infusion 1000 mL (LR 1000 mL) Start: 05/14/24 7:59:00 EDT, Rate: 125 mL/hr, 05/14/24 7:59:00 EDT ALLERGIES: (3) doxycycline penicillin sulfa drug FAMILY HISTORY: SOCIAL HISTORY: PHYSICAL EXAM: VITALS: No Data Available 24 Hr Tmax: No Data Available 36 Hr Tmax: No Data Available Vital Signs are the last 5 in the past 48 hours. Weights display the last 5 within 7 days. Initial Wt: No Data Available Current Wt: No Data Available GENERAL: HEENT: CARDIOVASCULAR: RESPIRATORY: ABDOMEN: EXREMETIES: NEUROLOGICAL: PSYCHIATRIC: LABS: No 36hr Lab Data DIAGNOSTICS: IMPRESSION: PLAN: History and Physical Update I have examined the patient; reviewed the H&P and there are no changes to the H&P unless noted below. Digitally Signed by LIBRA MCCARTHY DPM on 05/14/2024 08:05 AM [facility]04-27-2024 Note* Letter - Coordinator, Mammography - 02/14/2024 8:27 AM EDT February 16, 2024 PID: [id number] Dahlia Parsons [address] [place] [id number] Dear Ms. Parsons, We are pleased to inform you that the results of your recent breast imaging exam on 02/12/2024 are normal. Your mammogram demonstrates that you have dense breast tissue, which could hide abnormalities. Dense breast tissue, in and of itself, is a relatively common condition. Therefore, this information is not provided to cause undue concern; rather, it is to raise your awareness and promote discussion with your health care provider regarding the presence of dense breast tissue in addition to other riskfactors. Early detection of cancer is very important. We also understand recommendations regarding breast cancer screening are controversial. Please discuss with your primary care provider which strategy is best for you and whether a mammogram is right for you. Your imaging studies and report will be kept on file at [facility] as part of your permanent medical record and are available for your continuing care. Thank you for allowing us to help in meeting your health care needs. Sincerely, Dr. Steen Interpreting Radiologist [facility] (Normal over 40) [facility]04-27-2024 Miscellaneous Notes* Letter - Coordinator, Mammography - 02/14/2024 8:27 AM EDT February 16, 2024 PID: [id number] Dahlia Parsons [address] [place] [id number] Dear Lesley Rory, We are pleased to inform you that the results of your recent breast imaging exam on 02/12/2024 are normal. Your mammogram demonstrates that you have dense breast tissue, which could hide abnormalities. Dense breast tissue, in and of itself, is a relatively common condition. Therefore, this information is not provided to cause undue concern; rather, it is to raise your awareness and promote discussion with your health care provider regarding the presence of dense breast tissue in addition to other riskfactors. Early detection of cancer is very important. We also understand recommendations regarding breast cancer screening are controversial. Please discuss with your primary care provider which strategy is best for you and whether a mammogram is right for you. Your imaging studies and report will be kept on file at [facility] as part of your permanent medical record and are available for your continuing care. Thank you for allowing us to help in meeting your health care needs. Sincerely, Dr. Steen Interpreting Radiologist [facility] (Normal over 40) documented [facility]04[facility] History of Present illness Narrative* Calos Duarte CT - 02/12/2024 11:00 AM EDT Radiology Service Progress Note PATIENT NAME: Dahlia Parsons DATE OF SERVICE: February 12, 2024 TIME: 10:44 AM PATIENT IDENTITY VERIFICATION COMPLETED USING TWO (2) IDENTIFIERS: Name and Date of confirmedby patient verbally. FALL SCREENING: Has the patient had 2 falls in the last year or 1 fall with injury or currently using an Ambulatory Assistive Device (Walker, Cane, Wheelchair, Crutches, etc.)? No PATIENT GENDER DATA: Female. status: : No status: NO. PATIENT RELEVANT IMPLANT DATA REVIEWED: Not Applicable PATIENT PRESENTS WITH AN IMPLANTABLE OR ATTACHED HIDE AND SKIN PROCESSING WORKER: No RADIOLOGY DEPARTMENT: Mammography PERIPHERAL IV DATA: Not applicable SIGNED BY: ISREAL Shearer February 12, 2024 10:44 AM documented [facility]12[facility]22 History of Present illness Narrative* ISREAL Graff - 10/03/2022 7:20 AM EST Radiology Service Progress Note PATIENT NAME: Dahlia Parsons DATE OF SERVICE: October 03, 2022 TIME: 7:29 AM PATIENT IDENTITY VERIFICATION COMPLETED USING TWO (2) IDENTIFIERS: Name and Date of confirmedby patient verbally. FALL SCREENING: Has the patient had 2 falls in the last year or 1 fall with injury or currently using an Ambulatory Assistive Device (Walker, Cane, Wheelchair, Crutches, etc.)? No PATIENT GENDER DATA: Female. status: : No status: NO. PATIENT RELEVANT IMPLANT DATA REVIEWED: Not Applicable RADIOLOGY DEPARTMENT: Mammography PERIPHERAL IV DATA: Not applicable SIGNED BY: ISREAL Graff October 03, 2022 7:29 AM * ISREAL Shearer - 10/03/2022 7:20 AM EST Radiology Service Progress Note PATIENT NAME: Dahlia Parsons DATE OF SERVICE: October 03, 2022 TIME: 7:55 AM PATIENT IDENTITY VERIFICATION COMPLETED USING TWO (2) IDENTIFIERS: Name and Date of confirmedby patient verbally. FALL SCREENING: Has the patient had 2 falls in the last year or 1 fall with injury or currently using an Ambulatory Assistive Device (Walker, Cane, Wheelchair, Crutches, etc.)? No PATIENT GENDER DATA: Female. status: : No status: NO. PATIENT RELEVANT IMPLANT DATA REVIEWED: Not Applicable RADIOLOGY DEPARTMENT: Mammography PERIPHERAL IV DATA: Not applicable SIGNED BY: ISREAL Shearer October 03, 2022 7:55 AM documented in this encounterKn[facility]12-14-2021 NoteIMPRESSION: INCOMPLETE: NEEDS ADDITIONAL IMAGING EVALUATION The asymmetry in the right breast is indeterminate. Additional views are recommended. Hilda Timmons M.D. fa/lilli:10/02/2021 11:44:34 copy to: RIC FUENTES, ph: [phone] Asset Management Lead(s): Surekha Brody RT(R)(M), [facility] letter sent: Additional Imaging Needed Mammogram BI-RADS: 0 Incomplete: needs additional imaging evaluation If this report indicates you need additional imaging, and it has NOT yet been performed, please call , to schedule. We sincerely thank you for choosing the [facility] for your breast imaging needs. Multiple national specialty organizations have released breast cancer screening guidelines for women at average risk for developing breast cancer - guidelines that are based on both evidence and opinion, yet differ on when to start and how often to screen for breast cancer. With representation from Breast Imaging, Internal Medicine, Women's Health, Family Medicine, and Medical/Surgical Oncology, the [facility] has carefully reviewed the data and reached the following consensus: 1) All women should engage in shared decision-making with their providers to decide when to start and how often to screen; 2) All women should have the opportunity to start screening mammography at age 40; 3) For women ages 45-55, we recommend annual screening mammograms; 4) For women ages 55 and over, we support both the transition from an annual to a biennial interval if this aligns more with patient's values and preferences, or continuation with annual screening; 5) All women should discuss with their providers when to stop screening mammograms. Ticket Maker: Lilli Transcribe Date/Time: Oct 02 2021 11:07A Dictated by: HILDA TIMMONS MD This examination was interpreted and the report reviewed and electronically signed by: HILDA TMIMONS MD on Oct 02 2021 11:44AM EST DIVISION OF [id number] History of Present illness Narrative* Surekha Brody, Mammo Tech - 10/02/2021 11:05 AM EST Radiology Service Progress Note PATIENT NAME: Dahlia Pasrons DATE OF SERVICE: October 02, 2021 TIME: 11:09 AM PATIENT IDENTITY VERIFICATION COMPLETED USING TWO (2) IDENTIFIERS: Name and Date of confirmedby patient verbally. FALL SCREENING: Has the patient had 2 falls in the last year or 1 fall with injury or currently using an Ambulatory Assistive Device (Walker, Cane, Wheelchair, Crutches, etc.)? No PATIENT GENDER DATA: Female. status: : No status: NO. PATIENT RELEVANT IMPLANT DATA REVIEWED: Yes RADIOLOGY DEPARTMENT: Mammography PERIPHERAL IV DATA: Not applicable SIGNED BY: Sun Chavezo Fermin October 02, 2021 11:09 AM [facility] Narrative No data available for this section [facility] Reason for referral (narrative)No reason for referral information availableBrotman [facility] Work Phone: Chief Complaint Chief Complaint Description Start Date left wrist pain Preliminary chief co mplaint data, not yet signed by the author as of Instructions Instruction Description Start Date CompletedPatient advised to follow-up with Primary Care Physician for BMI management. Advance Directives There may be information available, but it has not been provided by the sender. No Advanced Directives Records FoundNo Advanced Directives Records FoundNo Advanced Directives Records FoundNo Advanced Directives Records FoundNo Advanced Directives Records FoundNo Advanced Directives Records Found Assessments There may be information available, but it has not been provided by the sender. Review of System There may be information available, but it has not been provided by the sender. Family History There may be information available, but it has not been provided by the sender.No Family History Records FoundNo Family History Records Found No data available for this section No Family History Records FoundNo Family History Records FoundNo Family History Records FoundNo Family History Records Found History of Present Illness There may be information available, but it has not been provided by the sender. Summary Purpose Chief Complaint and Reason for Visit Chief Complaint Admit Date check f/u ( back from [place]) June 08, 025 8:34am Reason for Visit Admit Date Interstitial cystitis June 08, 2025 8:34am Mixed incontinence June 08, 2025 8: 34am Nocturia June 08, 2025 8: 34am Vaginal atrophy June 08, 2025 8: 34am Vulvar atrophy June 08, 2025 8: 34am Additional Source Comments Reason for Visit (unrecogniz ed section and content) Reason For Visit Description New Complaint Preliminary reason f or visit data, not yet signed by the author as of left wrist pain Reason Comments Radiology Mammogram Reason Comments Reminder Call Care Teams (unrecognized sec tion and content) Otolaryngology Rep Relationship Specialty Start Date End Date Ric Fuentes MD [facility] [phone] PCP - General Family Medicine 01/23/21 Inna Pratt MD [address] [place] [phone] Physician Rheumatology 07/25/20 Mindy Gonzalez DO [address] [place] [phone] Physician Radiology 10/20/21 Otolaryngology Rep Relationship Specialty Start Date End Date Ric Fuentes MD PCP - General Family Medicine 02/03/13 Otolaryngology Rep Relationship Specialty Start Date End Date Ric Fuentes MD [address] [id number] PCP - General Family Medicine 01/23/21 Inna Pratt MD [address] [place] [id number] Physician Rheumatology 07/25/20 Mindy Gonzalez DO [address] [place] [id number] Physician Radiology 10/20/21 Otolaryngology Rep Relationship Specialty Start Date End Date Ric Fuentes MD PCP - General Family Medicine 02/03/13 Otolaryngology Rep Relationship Specialty Start Date End Date Ric Feuntes MD PCP - General Family Medicine 02/03/13 Otolaryngology Rep Relationship Specialty Start Date End Date Ric Fuentes MD PCP - General Family Medicine 02/03/13 Otolaryngology Rep Relationship Specialty Start Date End Date Ric Fuentes MD PCP - General Family Medicine 02/03/13 Otolaryngology Rep Relationship Specialty Start Date End Date Ric Fuentes MD PCP - General Family Medicine 02/03/13 Otolaryngology Rep Relationship Specialty Start Date End Date Ric Fuentes MD PCP - General Family Medicine 02/03/13 Team Status: Active Member Role/Relationship Status Dates Dr. Ric Fuentes MD Primary Care Provider Active Team Status: Inactive Member Role/Relationship Status Dates Dr. Ric Fuentes MD Primary Care Provider Active Start: April 19, 2025 Dr. Leatha Darby MD Attending Provider Active Start: April 19, 2025 Team Status: Inactive Member Role/Relationship Status Dates Dr. Ric Fuentes MD Primary Care Provider Active Start: June 08, 2025 End: June 08, 2025 Dr. Ric Fuentes MD Referring Provider Active Start: June 08, 2025 End: June 08, 2025 Dr. Leatha Darby MD Attending Provider Active Start: June 08, 2025 End: June 08, 2025 Source Comments (unrecognize d section and content) In the event this informatio n is protected by the Federal Confidentiality of Alcohol and Drug Abuse Patient Records regulations: The Federal rules restrict any use of the information to criminally investigate or prosecute any alcohol or drug abuse patient.[facility] HospitalIn the event this information is protected by the Federal Confidentiality of Alcohol and Drug Abuse Patient Records regulations: The Federal rules restrict any use of the information to criminally investigate or prosecute any alcohol or drug abuse patient.[facility] HospitalIn the event this information is protected by the Federal Confidentiality of Alcohol and Drug Abuse Patient Records regulations: The Federal rules restrict any use of the information to criminally investigate or prosecute any alcohol or drug abuse patient.[facility] HospitalIn the event this information is protected by the Federal Confidentiality of Alcohol and Drug Abuse Patient Records regulations: The Federal rules restrict any use of the information to criminally investigate or prosecute any alcohol or drug abuse patient.[facility] HospitalIn the event this information is protected by the Federal Confidentiality of Alcohol and Drug Abuse Patient Records regulations: The Federal rules restrict any use of the information to criminally investigate or prosecute any alcohol or drug abuse patient.[facility] HospitalIn the event this information is protected by the Federal Confidentiality of Alcohol and Drug Abuse Patient Records regulations: The Federal rules restrict any use of the information to criminally investigate or prosecute any alcohol or drug abuse patient.[facility] HospitalIn the event this information is protected by the Federal Confidentiality of Alcohol and Drug Abuse Patient Records regulations: The Federal rules restrict any use of the information to criminally investigate or prosecute any alcohol or drug abuse patient.[facility] INFORMATION SOURCE (unrecogn ized section and content) DATE CREATED AUTHOR 12/16/2022 [facility] DATE CREATED AUTHOR AUTHOR'S ORGANIZ ATION 02/18/2024 [facility] DATE CREATED AUTHOR AUTHOR'S ORGANIZ ATION 06/09/2024 [facility] DATE CREATED AUTHOR AUTHOR'S ORGANIZ ATION 06/12/2025 [facility] DATE CREATED AUTHOR AUTHOR'S ORGANIZ ATION 07/27/2025 [facility] DATE CREATED AUTHOR AUTHOR'S ORGANIZ ATION 08/30/2025 [facility] Goals (unrecognized section and content) Goals may be documented in a n alternate section FOR RECORDS PERTAINING TO PATIENTS WHO ARE OR HAVE BEEN ENROLLED IN A CHEMICAL DEPENDENCY/SUBSTANCEABUSE PROGRAM, SOME INFORMATION MAY BE OMITTED. This clinical summary was aggregated from multiple sources. Caution should be exercised in using it in the provision of clinical care. This summary normalizes information from multiple sources, and as a consequence, information in this document may materially change the coding, format and clinical context of patient data. In addition, data may be omitted in some cases. CLINICAL DECISIONS SHOULD BE BASED ON THE PRIMARY CLINICAL RECORDS. [employer] [facility]. provides no warranty or guarantee of the accuracy or completeness of information in this document.
[2025-09-01] MEDS: Lactated Ringers 1,000 ML 15 ML IV (06:58)
--- NOTE | 2025-09-01 07:23 | HP.PCM_ITS ---
History and Physical Date of Admission: 09/01/25 Date of Service: 08/22/25 MR#: [id number] Acct: [id number] Name: JAMISON PARSONS Rep #: [id number] : 1950 Provider: Dr. 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 Operator Required: No Accompanied by: self Is patient in pain?: No Allergies Penicillins Allergy (Verified 08/22/25 09:00) Swelling Sulfa (Sulfonamide Antibiotics) Allergy (Verified 08/22/25 09:00) Upset Stomach CYCLINES Adverse Reaction (Uncoded 08/22/25 09:00) Upset Stomach Medications Medication Instructions Recorded Confirmed Type ascorbic acid (vitamin C) 500 mg 500 mg PO DAILY 04/02/22 08/22/25 Histor y tablet,extended release (Vitamin C ER) cholecalciferol (vitamin D3) 25 25 mcg PO DAILY 04/02/22 08/22/25 Histor y mcg (1,000 unit) tablet (Vitamin D3) methimazole 10 mg tablet 5 mg PO QHS 04/02/22 08/22/25 History omega 0-olv-msv-fish oil 1,000 mg 1 cap PO DAILY 04/02/22 08/22/25 History (120 mg-180 mg) capsule (Fish Oil) pravastatin 20 mg tablet 20 mg PO QHS 04/02/22 08/22/25 History triamterene 37.5 1 tab PO BID 04/02/22 08/22/25 History mg-hydrochlorothiazide 25 mg tablet zolpidem 5 mg tablet (Ambien) 5 mg PO QHS 04/02/22 08/22/25 History estradiol 0.01% (0.1 mg/gram) 1 g vaginal 3XW 06/08/25 08/22/25 Histor y vaginal cream ospemifene 60 mg tablet (Osphena) 60 mg PO QDAY #30 tabs 06/08/25 08/22/25 Rx potassium chloride 10 mEq 10 meq PO QDAY 06/08/25 08/22/25 History tablet,extended release(part/cryst) Saccharomyces boulardii 250 mg 250 mg PO BID 08/22/25 08/22/25 History capsule (Daily Probiotic (S. boulardii)) ascorbate calcium (vitamin C) 500 500 mg PO BID 08/22/25 08/22/25 History mg tablet biotin 10 mg tablet 10 mg PO QDAY 08/22/25 08/22/25 History magnesium 200 mg tablet 200 mg PO QDAY 08/22/25 08/22/25 History methenamine 81 mg-m.blue 10.8 1 tab PO BID #180 tabs 08/22/25 08/22/25 Rx mg-sod phos 40.8 mg-p.salicy-hyos tablet (Urelle) Have you fallen in the past year?: No Nurse's Note: the vaginal irritation has started back and wonders if she can do testosterone cream daily. PFSH Medical History Vulvar atrophy Vaginal atrophy Mixed incontinence Nocturia Interstitial cystitis Cancer Alcohol use Thyroid disease Bladder disease High cholesterol History of Mohs micrographic surgery for skin cancer Non-smoker History of edema Surgical History Hx of appendectomy Hx of hysterectomy Hx of breast biopsy Social History Smoking Status: Never smoker HPI HPI Urology Chief Complaint: preoperation visit with urine and concent Details: JAMISON PARSONS, is a 75 F. The patient is here for preoperative history and physical prior to midurethral sling and cystoscopy. There are no new symptoms since the last visit. The procedure, recovery and expectations were explained. The risks, benefits and alternatives were discussed, including but not limited to, the risks of anesthesia, bleeding, infection, injury, pain and the need for further intervention. We have discussed the risk of exposure to and/or potential harm p osed by the COVID-19 virus with having a surgery/procedure at this time. A joint decision was made at this time to proceed with the scheduled surgery/procedure as indicated on the consent form. She is having ankle surgery in [place] where the weather is better for recovery. Her sister was found to have a brain aneurysm and will be having surgery soon. ROS Const Constitutional: No chills, fatigue, fever(s), headache(s), night sweats, weakness, weight change, abnormal sleep pattern or change in appetite Eyes Eyes: No change in vision ENT ENT: No headache(s) or dry mouth Resp Respiratory: No cough, chest congestion, shortness of breath or wheezing Cardio Cardiology: Positive for other (No chest pain.); No shortness of breath, irregular heart rhythm or lightheadedness Gastro GI: Positive for other (No nausea.); No abdominal pain, change in bowel habits, constipation, diarrhea or vomiting Musc Musculoskeletal: No abnormal gait Skin Skin: No yellowing of the eye, lesions, itchy eyes, rash or skin ulcer Neuro Neurology: No abnormal gait, confusion, dizziness, weakness, headache(s) or memory loss Psych Psychiatric: No abnormal sleep pattern, No change in appetite, No confusion and No memory loss Endo Endocrine: No fatigue, increased thirst/drinking or weight change Aller/Imm Allergy/Immunologic: No itchy eyes or wheezing Wan/Lymp Hematologic/Lymphatic: No easy bleeding, easy bruising or enlarged lymph nodes Exam Const General: cooperative, healthy appearing, comfortable and no acute distress [facility] Head: normocephalic and atraumatic Ears: hearing grossly normal bilaterally and external ears normal Nose: external nose normal Eyes General: appearance normal, both eyes and all related structures Neck Neck: normal visual inspection and trachea midline Chest Chest palpation & inspection: normal inspection of the chest Resp Effort & Inspection: normal respiratory effort, able to speak in complete sentences and symmetric chest movement Cardio Rate: regular rate GI Inspection: normal to inspection Palpation: soft and nontender General: No CVA tenderness Skin General: no rashes or lesions noted Neuro General: patient alert, patient awake, patient oriented x3 and CN's II-XI intact bilaterally Extrem General: normal to inspection Psych Appearance: grossly normal and well kempt Mental Status: mental status grossly normal Coding Level of Care Code Off vis,est,level 4 Diagnoses Stress incontinence N39.3 Vulvar atrophy N90.5 Vaginal atrophy N95.2 Assessment and Plan Assessment and Plan (1) Stress incontinence: Status: Acute (2) Vulvar atrophy: Status: Acute (3) Vaginal atrophy: Status: Acute Medications: New alona-patricio-asher.bwel-pkchi-nvt 81-10.8-40.8 mg (Urelle) 1 TAB PO BID 180 tabs 3RF Plan proceed with midurethral sling and cystoscopy urine culture today continue hormone creams, level one bladder management and Urelle Clinical Quality Measures Falls Risk Screening/Assistive Devices Have you fallen in the past year?: No 08/22/25 0921 <Electronically signed by Leatha Darby MD> Date Leatha Darby MD
--- NOTE | 2025-09-01 07:24 | DCINST_ITS ---
Discharge Instructions Diet Discharge Diet: No restrictions Activity Discharge Activity: May Shower May resume sexual activity in: 4 weeks Lifting Restrictions: 5 pounds Additional Activity Instructions:: No strenuous activity, exercise, dog walking, hot tubs, swimming or tub bathing Dressing / Incision Call your doctor if your incision/area has: Continuous Slow Oozing, Sudden Increased Bleeding, Increased Pain/ Swelling and Foul Smelling Discharge Call your doctor if you observe: Fever of 101 or Higher, Inability to urinate a nd Inability to have a bowel movement Follow Up Care Please Follow Up With: Leatha Darby MD Test Results: Test results from this visit will be discussed in further detail at your follow- up appointment, if applicable. Discharge Plan Admission Attending Provider: Leatha Darby Primary Care Provider: Ric Lanza Consulting Providers: Roe Patel Instructions Print Language: Gabonese Discharge Orders/Prescriptions Prescriptions: New oxycodone-acetaminophen 5-325 mg tablet 1 tab PO Q8H PRN (Reason: pain) 3 Days Qty: 10 0RF nitrofurantoin monohyd/m-cryst [Macrobid] 100 mg capsule 100 mg PO BID Qty: 6 0RF Rx Instructions: must administer with a meal/food Continued estradiol 0.01 % (0.1 mg/gram) cream 1 g vaginal 3XW potassium chloride 10 mEq tablet,ER particles/crystals 10 meq PO QDAY Osphena 60 mg tablet 60 mg PO QDAY Qty: 30 3RF Rx Instructions: must administer with food, preferably a high-fat meal biotin 10 mg tablet 10 mg PO QDAY magnesium 200 mg tablet 200 mg PO QDAY Saccharomyces boulardii [Daily Probiotic (S. boulardii)] 250 mg capsule 250 mg PO BID Urelle 81-10.8-40.8 mg tablet 1 tab PO BID Qty: 180 3RF triamterene-hydrochlorothiazid 37.5-25 mg Tablet 1 tab PO .QAM pravastatin 20 mg Tablet 20 mg PO QHS zolpidem [Ambien] 5 mg Tablet 10 mg PO QHS methimazole 10 mg Tablet 5 mg PO QHS ascorbic acid (vitamin C) [Vitamin C] 500 mg Tablet Extended Release 500 mg PO DAILY cholecalciferol (vitamin D3) [Vitamin D3] 25 mcg (1,000 unit) Tablet 25 mcg PO DAILY omega 5-gbc-ckg-fish oil [Fish Oil] 1,000 mg (120 mg-180 mg) Capsule 1 cap PO DAILY triamterene-hydrochlorothiazid 37.5-25 mg tablet 0.5 tab PO 1700 Versatile Cream 1 applic topical DAILY vitamin E 268 mg (400 unit) capsule 268 mg PO DAILY melatonin 10 mg capsule 10 mg PO QHS ferrous sulfate [FeroSul] 325 mg (65 mg iron) tablet 325 mg PO DAILY lidocaine [AsperFlex (lidocaine)] 4 % adhesive patch,medicated 1 patch topical DAILY PRN (Reason: pain) Referrals / Follow Up: Ric Lanza MD [Primary Care Provider, Family Practice] Disposition Disposition (needs filled in before D/C Order can be placed): Home, Self Care
--- NOTE | 2025-09-01 07:28 | PCM.PRE.AN2 ---
ASA Classification* ASA Classification ASA Classification: 2 Assessment & Plan Anesthesia* Anesthesia Assessment Anesthesia Assessment: Discussed sedation and/or anesthesia options, risks, benefits, and alternatives with patient/parents/legal guardian/POA. Questions invited. The patient/parents/legal guardian/POA seems to understand and agrees to proceed with anesthesia plan. Reviewed the physical assessment, medical history, allergy history and patient home medications list prior to surgery/procedure/anesthetic and documented any changes. Performed airway and anesthesia risk assessments. Anesthesia Type Anesthesia Type: General History Source History Obtained from:: Patient and Chart Anesthesia Focused Assessment* Temperature: 97.7 F Pulse Rate: 65 Blood Pressure: 138/49 Respiratory Rate: 18 Pulse Ox: 99 Oxygen Delivery Method: Room Air Airway Assessment Mouth opens: >3 cm Mallampati Score: III Teeth Condition: Caps/Crowns (Patient has a couple crowns. They are tight.) and Missing (Patient has several missing teeth. The rest are tight.) Neck Range of motion (ROM): Limited ROM (Slight Decrease) Labs Anesthesia Preop lab: CBC WBC, (4.4-11.0) 6.6 K/mm3 08/29/25, : RBC, (4.2-5.4) 4.17 M/mm3 L 08/29/25, : Hgb, (12.0-15.0) 14.2 g/dL 08/29/25, : Hct, (37-47) 40.0 % 08/29/25, : Plt Count, (150-450) 203 K/mm3 08/29/25, : CHEMISTRY Potassium, (3.3-5.1) 3.5 mmol/L 08/29/25, 08: Sodium, (133-145) 140 mmol/L 08/29/25, : BUN, (4-19) 22 mg/dL H 08/29/25, : Creatinine, (0.70-1.20) 1.01 mg/dL 08/29/25, : Glucose, (70-99) 89 mg/dL 08/29/25, : TSH, (0.300-4.200) 2.810 uIU/mL 08/29/25, : COAG Pre-Assessment Diagnosis/Proposed Procedure Planned Operative Procedure(s): Cysto, Mid-urethral sling Anesthesia History 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 When Was Last Pacemaker Check QUESTION #4 FULL TEXT: You/Your Family Experience fever (hyperthermia) with Anesthesia Last Oral Intake Last Oral intake: Last Oral Intake NPO since 20:00 09/01/25 06:37 Meds taken in AM with sips of No 09/01/25 06:37 water? Meds patient instructed to take am of surgery PONV PONV - toll ticket clerk: PONV - toll ticket clerk Female Yes 08/24/25 11:21 HX of Motion Sickness No 08/24/25 11:21 HX of N/V After Surgery No 08/24/25 11:21 Non-Smoker Yes 08/24/25 11:21 Duration of Surgery greater Yes 08/24/25 11:21 than 60 minutes Number of Risk Factors 3 08/24/25 11:21 PONV Score Moderate Risk 08/24/25 11:21 Height & Weight Height & Weight: Anesthesia: Height & Weight Height 5 ft 7 in 09/01/25 06:37 Weight: 63 kg 09/01/25 06:37 Body Mass Index (BMI) 21.7 09/01/25 06:37 Respiratory Assessment Respiratory Assessment - toll ticket clerk: Respiratory Tract Infection Hx - toll ticket clerk Hx Respiratory Tract Infection No 08/24/25 11:21 STOP Sleep Apnea STOP Sleep Apnea - toll ticket clerk: STOP Sleep Apnea - toll ticket clerk Hx Hypertension No 08/24/25 11:21 Hx Sleep Apnea No 08/24/25 11:21 CPAP BIPAP Do you snore loudly (louder No 08/24/25 11:21 than talking or can be heard Do you often feel tired/ No 08/24/25 11:21 fatigued/ sleepy during daytime? Has anyone observed you stop No 08/24/25 11:21 breathing during sleep? STOP Results Negative 08/24/25 11:21 QUESTION #5 FULL TEXT : Do you snore loudly (louder than talking or can be heard through closed doors)? 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 Specify any problems Hx of Preganancy in last 3 No 08/24/25 11:21 Months Nurse Filling Out Transfusion VCHRISTIN 08/24/25 11:21 & Questions: Date: 08/24/25 08/24/25 11:21 Time: 11:22 08/24/25 11:21 Patient unable to answer at this time (ie. confused, unrespo /Reproduction History /Reproductive History - toll ticket clerk: /Reproductive Hx- toll ticket clerk Hx Now No 08/24/25 11:21 Gestational Age (in weeks): EDC: Hx Hx Para Hx Section SAB No 08/24/25 11:21 Does the father of the baby or his family experience fever w Father of the baby Malignant Hypertension history comment Active Medications Active Medications: Current Medications Generic Name Dose Route Start Last Admin Trade Name Freq PRN Reason Stop Dose Admin Ciprofloxacin 400 mg in 200 mls @ 200 mls/hr 09/01/25 07:00 09/01/25 06:57 Cipro IV 09/01/25 07:59 200 mls/hr PREOP ONE Administration Lactated Ringer's 1,000 mls @ 15 mls/hr 09/01/25 06:15 09/01/25 06:58 IV 15 mls/hr .Q48H SHARON Administration PFSH Medical History History of echocardiogram Post-menopausal Arthritis History of pain when walking Vulvar atrophy Vaginal atrophy Mixed incontinence Nocturia Interstitial cystitis Cancer Alcohol use Thyroid disease Bladder disease High cholesterol History of Mohs micrographic surgery for skin cancer Non-smoker History of edema Home Medications Medication Instructions Recorded Last Taken Type ascorbic acid (vitamin C) 500 mg 500 mg PO DAILY 04/02/22 08/31/25 History tablet,extended release (Vitamin C ER) cholecalciferol (vitamin D3) 25 25 mcg PO DAILY 04/02/22 08/31/25 History mcg (1,000 unit) tablet (Vitamin D3) methimazole 10 mg tablet 5 mg PO QHS 04/02/22 08/31/25 History omega 9-xvx-ati-fish oil 1,000 mg 1 cap PO DAILY 04/02/22 08/31/25 History (120 mg-180 mg) capsule (Fish Oil) pravastatin 20 mg tablet 20 mg PO QHS 04/02/22 08/31/25 History triamterene 37.5 1 tab PO .QAM 04/02/22 08/31/25 History mg-hydrochlorothiazide 25 mg tablet zolpidem 5 mg tablet (Ambien) 10 mg PO QHS 04/02/22 08/31/25 History estradiol 0.01% (0.1 mg/gram) 1 g vaginal 3XW 06/08/25 08/30/25 History vaginal cream ospemifene 60 mg tablet (Osphena) 60 mg PO QDAY #30 tabs 06/08/25 08/30/25 Rx potassium chloride 10 mEq 10 meq PO QDAY 06/08/25 08/31/25 History tablet,extended release(part/cryst) Saccharomyces boulardii 250 mg 250 mg PO BID 08/22/25 08/25/25 History capsule (Daily Probiotic (S. boulardii)) biotin 10 mg tablet 10 mg PO QDAY 08/22/25 08/31/25 History magnesium 200 mg tablet 200 mg PO QDAY 08/22/25 08/31/25 History methenamine 81 mg-m.blue 10.8 1 tab PO BID #180 tabs 08/22/25 08/31/25 Rx mg-sod phos 40.8 mg-p.salicy-hyos tablet (Urelle) cream base no.193 (bulk) 1 applic topical DAILY 08/24/25 08/31/25 History (Versatile topical cream) ferrous sulfate 325 mg (65 mg 325 mg PO DAILY 08/24/25 08/25/25 History iron) tablet (FeroSul) lidocaine 4 % topical patch 1 patch topical DAILY PRN pain 08/24/25 08/28/25 History (AsperFlex (lidocaine)) melatonin 10 mg capsule 10 mg PO QHS 08/24/25 08/31/25 History triamterene 37.5 0.5 tab PO 1700 08/24/25 08/31/25 History mg-hydrochlorothiazide 25 mg tablet vitamin E 268 mg (400 unit) capsule 268 mg PO DAILY 08/24/25 08/25/25 History nitrofurantoin 100 mg PO BID #6 caps 09/01/25 Unknown Rx monohydrate/macrocrystals 100 mg capsule (Macrobid) oxycodone-acetaminophen 5 mg-325 1 tab PO Q8H PRN pain 3 days #10 09/01/25 Unknown Rx mg tablet tabs Allergy/AdvReac Type Severity Reaction Status Date / Time Penicillins Allergy Swelling Verified 09/01/25 06:33 Sulfa (Sulfonamide Allergy Upset Verified 09/01/25 06:33 Antibiotics) Stomach Surgical History History of ankle surgery Hx of surgical procedure Hx of appendectomy Hx of hysterectomy Hx of breast biopsy Social History Smoking Status: Never smoker Review of Systems (Anesthesia) ROS Narrative System reviewed and no additional complaints, except as documented.
[2025-09-01] MEDS: Lidocaine 1% (5 ml sdv) 5 ML Vial IV (07:44)
[2025-09-01] MEDS: Lidocaine 1% /Epi 1:100 (20ml) 20 ML Vial (07:55)
[2025-09-01] MEDS: fentaNYL 100 MCG/2 ML Ampul IV (07:57)
--- NOTE | 2025-09-01 08:23 | PCM.POST.ANE ---
Anesthesia: Postop Eval I Current Vital Signs Temperature: 98.7 F Pulse Rate: 72 Blood Pressure: 140/56 Respiratory Rate: 16 Pulse Ox: 99 Oxygen Delivery Method: Room Air Assessment Airway patent: Yes Spontaneous unlabored respirations: Yes Mental status: Awake and Calm nausea: No Vomiting: No Anesthesia Complication: No Fluid Hydration Crystalloid volume administer (ml): 600 Total IV fluid infused: 600 Progress Note Anesthesia document: Postop Eval 1 completed: Yes
--- NOTE | 2025-09-01 08:26 | OP.PCM_ITS ---
Multi Select Codes Urology Urology Charge Forwarding-multi code: [id number] Cystourethroscopy and [id number] Sling Operation Stress Incontinence Operative Report (Standard) Operative Information Date of Procedure: 09/01/25 Pre-Operative Diagnosis: Stress urinary incontinence Post-Operative Diagnosis: Same Surgery/Procedure Performed: Altis mid urethral sling, cystoscopy patent searcher: No Type of Anesthesia: General RN Documented Start/Stop Times: Operation Date: 09/01/25 07:30 Case Time Into Pre-Op 09/01/25 06:08 Out of Pre-Op 09/01/25 07:36 Anesthesia Start 09/01/25 07:38 Into Room 09/01/25 07:38 Procedure Start 09/01/25 07:55 Procedure End 09/01/25 08:10 Anesthesia End 09/01/25 08:18 Out of Room 09/01/25 08:18 Into Recovery 09/01/25 08:21 Procedure Start Time: 07:55 Procedure Stop Time: 08:10 Select all DRAINS/GRAFTS/IMPLANTS that apply: Graft Graft details: Altis mid urethral sling Estimated Blood Loss: 20cc Specimen collected: No Description of surgery: The patient was taken to the operating room and placed on the operating room table. Anesthesia monitored the head, neck, airway, IV access and vital signs throughout the case. Once anesthesia was appropriately administered, she was placed into dorsal lithotomy in Trendelenburg position and was prepped and draped in usual sterile fashion. A 16 Slovenian Hu catheter was inserted to straight drain and the bladder was emptied. The mid urethra was isolated and injected submucosally with 1% lidocaine with epinephrine for hydrostatic dissection and hemostatic control. A vertical midline incision was made approximately 2 cm in length. Blunt and sharp dissection was performed on eith er side of the urethra with care being taken to avoid entrance into the urethra or the vaginal mucosa. Using the trocars provided, the tines of the mid urethral sling were passed through the incision and through the obturator complexes bilaterally with care being taken to avoid entrance into the vaginal mucosa or urethra. The sling was then positioned against the urethra without tension using the tensioning suture. Once positioning was completed, the tensioning suture was cut. The incision was closed using running interlocking 2-0 Vicryl. The patient was then taken out of Trendelenburg and the Hu catheter was removed. The cystoscope was inserted through the urethra under direct visualization into the urinary bladder. Cystoscopy revealed no evidence of mass, erythema, ulceration, bladder or urethral injury, laceration or foreign body. The cystoscope was then removed and the patient was awakened and taken to the recovery room in good condition. There were no complications during this procedure. Surgical Findings: Good sling placement, no complication Complications Complications: No Admit VTE Documentation VTE Present on Admission: Yes VTE Mechan Device Prophylaxis: SCD's VTE Pharm Prophylaxis ordered?: No Reason prophylaxis not ordered: Treatment Not Indicated
--- NOTE | 2025-09-01 14:21 | POSTOPAN2_ITS ---
Anesthesia Postop Eval I Sum Postop Eval Completion status Anesthesia document: Postop Eval 1 completed: Yes Anesthesia Postop Eval I Summary Anesthesia Postop Eval I Summary: Anesthesia Postop Eval I: Assessment Summary Airway patent Yes 09/01/25 08:24 TRIALS [email or web address] Spontaneous unlabored Yes 09/01/25 08:24 TRIALS MANAGER.[email or web address] respirations Mental status Awake,Calm 09/01/25 08:24 TRIALS MANAGER.[email or web address] nausea No 09/01/25 08:24 TRIALS MANAGER.GDOTT Vomiting No 09/01/25 08:24 TRIALS MANAGER.[email or web address] Anesthesia Postop Eval I: Fluid Summary Crystalloid volume administer 600 09/01/25 08:24 TRIALS MANAGER.GDOTT (ml) Colloids volume administered ( ml) Blood Product volume administered (ml) Total IV fluid infused 600 09/01/25 08:24 TRIALS [email or web address] Anesthesia Postop Eval I: Summary Notes Anesthesia Complication No 09/01/25 08:24 TRIALS [email or web address] Anesthesia Complication Comment: Post-operative progress note Anesthesia: Postop Eval II Evaluation Mental status: Awake and Calm Pain Level: 0 nausea: No Vomiting: No Complications Anesthesia Complication: No
--- NOTE | 2025-09-01 14:21 | PCM.POSTANE2 ---
Anesthesia Postop Eval I Sum Postop Eval Completion status Anesthesia document: Postop Eval 1 completed: Yes Anesthesia Postop Eval I Summary Anesthesia Postop Eval I Summary: Anesthesia Postop Eval I: Assessment Summary Airway patent Yes 09/01/25 08:24 A&P [email or web address] Spontaneous unlabored Yes 09/01/25 08:24 A&P TECHNICIAN.GDOTT respirations Mental status Awake,Calm 09/01/25 08:24 A&P TECHNICIAN.GDOTT nausea No 09/01/25 08:24 A&P TECHNICIAN.GDOTT Vomiting No 09/01/25 08:24 A&P TECHNICIAN.GDOTT Anesthesia Postop Eval I: Fluid Summary Crystalloid volume administer 600 09/01/25 08:24 A&P TECHNICIAN.GDOTT (ml) Colloids volume administered ( ml) Blood Product volume administered (ml) Total IV fluid infused 600 09/01/25 08:24 A&P TECHNICIAN.GDOTT Anesthesia Postop Eval I: Summary Notes Anesthesia Complication No 09/01/25 08:24 A&P TECHNICIAN.GDOTT Anesthesia Complication Comment: Post-operative progress note Anesthesia: Postop Eval II Evaluation Mental status: Awake and Calm Pain Level: 0 nausea: No Vomiting: No Complications Anesthesia Complication: No
== END 2025-09-01 09:45 | disposition home or self-care (01) ==
LOC: SDC 06:02 → AC 06:03
PROVIDERS: Student in an Organized Health Care Education/Training Program; PCP Family Medicine; Referring Provider Urology; Visit Provider Urology
DX: N39.3 Stress incontinence (female) (male) (principal); N90.5 Atrophy of vulva; N95.2 Postmenopausal atrophic vaginitis; E78.00 Pure hypercholesterolemia, unspecified; Z90.710 Acquired absence of both cervix and uterus; Z79.899 Other long term (current) drug therapy
CPT/HCPCS: 57288; 00860; 36415; 80048; 84443; 85027; 93005; C1771; J0744; J2405